=== PATIENT | female | born 1950 | race Caucasian/White ===

== ENCOUNTER 2024-09-25 18:11 | Inpatient (IN) ==
--- NOTE | 2024-09-25 18:43 | Emergency Department Note ---
Impression & Plan Suicidal thoughts Admission ED Provider Note HPI: History obtained from patient and son at bedside. The patient is a 73-year-old female who presents the emergency department with chief complaint of worsening anxiety and passive suicidal thoughts. Patient presents with a prescription note from her psychiatrist stating that she would like the patient evaluated for admission for worsening anxiety and suicidal thoughts because her anxiety has not been improving. Patient does admit to suicidal thoughts on my evaluation but states that she does not currently have a plan. Patient states that she feels very anxious, during my assessment she is pacing in the room. Patient is otherwise alert, she presents with her son at the bedside. ROS: - Per HPI Differential Diagnosis: Anxiety/depression, suicidal thoughts, psychosis, OCD with acute exacerbation, amongst other potential pathologies. *Outpatient medications and allergy history reviewed. PE: General: Alert, anxious appearing HEENT: Normocephalic, trachea midline Eyes: Extraocular eye movement is intact, no scleral erythema Pulmonary: Clear to auscultation bilaterally, no wheezing Cardio: Regular rate and rhythm GI: Abdomen is soft to palpation : No suprapubic tenderness MSK: No evidence of trauma or malformation of the extremities, no edema Skin: No evidence of rash Neuro: Alert, no focal deficits Psychiatric: Anxious appearing, pacing in the room, overall cooperative Interventions provided in ED: -IM Ativan Medical Decision Making: Lab work was obtained that shows no leukocytosis, hemoglobin is normal, platelet count is normal, CMP does not show any critical findings. Urinalysis does not show any evidence of any infection, Tylenol and salicylate levels are negative. Urine drug screen is negative. Alcohol level is negative. COVID screening is negative. Patient was given IM Ativan here in the ED as she was very anxious during my assessment and at times stated that she wanted to leave. She does present with a note from her psychiatrist suggesting inpatient care. She later admitted to a suicide attempt when speaking with case management and states that this occurred several days ago by taking some additional buspirone intentionally to harm herself. Patient was re-directable and agreeable for voluntary bed search admission for inpatient psychiatric care following medication. Her son at the bedside was in agreement. Patient was assessed for placement by the behavioral health unit and are determined appropriate for admission at 3 S. Consultants/Discussions held with other healthcare providers: -Case managementBoy Diagnosis: 1. Anxiety, acute 2. Suicidal thoughts, acute Disposition: Admission to [facility] Richy Carranza DO Emergency Medicine Past Med/Surg History Problem List (Updated 09/25/24 @ 23:26 by Richy Carranza DO) Suicidal thoughts (Acute) Social History Smoking Status: Never smoker Feels Safe at Home: Yes Gender Identity: Female Home Meds Home Medications Medication Instructions Recorded Confirmed buspirone 10 mg tablet 20 mg PO BID 09/25/24 09/25/24 levothyroxine 88 mcg tablet 88 mcg PO DAILY 09/25/24 09/25/24 lorazepam 0.5 mg tablet (Ativan) 0.5 mg PO TID PRN Anxiety 09/25/24 09/25/24 quetiapine 200 mg tablet (Seroquel) 200 mg PO HS 09/25/24 09/25/24 sertraline 50 mg tablet (Zoloft) 50 mg PO DAILY 09/25/24 09/25/24 Results & Data (ED) Vital Signs Vital Signs - 24 hr 09/25/24 18:15 09/25/24 19:14 09/25/24 20:15 Temperature 36.9 C Temperature Source Temporal Artery Scan Pulse Rate 93 H Pulse Rate [Finger] 71 Respiratory Rate 20 18 Respiratory Effort / Characteristics Non-Labored Spontaneous Non-Labored Non-Labored Spontaneous Respiratory Depth Normal Normal Normal Blood Pressure 151/90 H Blood Pressure [Right Arm] 121/67 Blood Pressure Mean 110 Blood Pressure Mean [Right Arm] 85 Pulse Oximetry 96 98 Oxygen Delivery Method Room Air Room Air Sepsis Recent Fever Within 48 Hours No Sepsis New/Unexplained Change in Mental Status No Sepsis Action Taken by Nursing No Action Required 09/25/24 22:00 Temperature Temperature Source Pulse Rate Pulse Rate [Finger] Respiratory Rate Respiratory Effort / Characteristics Non-Labored Respiratory Depth Normal Blood Pressure Blood Pressure [Right Arm] Blood Pressure Mean Blood Pressure Mean [Right Arm] Pulse Oximetry Oxygen Delivery Method Sepsis Recent Fever Within 48 Hours Sepsis New/Unexplained Change in Mental Status Sepsis Action Taken by Nursing Laboratory Data 09/25/24 19:05 09/25/24 19:05 Lab Results 09/25/24 09/25/24 09/25/24 Range/Units 18:47 19:05 19:50 WBC 9.28 (4.8-10.8) K/ul RBC 4.51 (4.20-5.40) M/uL Hgb 13.6 (12.0-16.0) g/dl Hct 41.1 (37.0-47.0) % MCV 91.1 (80.0-100.0) fL MCH 30.2 (25.0-34.0) pg MCHC 33.1 (32.0-36.0) g/dL RDW Std Deviation 42.5 (36.4-46.3) fL RDW Coeff of Justin 12.9 (11.5-14.5) % Plt Count 299 (130-400) K/uL MPV 9.3 L (9.4-12.4) fL Immature Gran % (Auto) 0.2 % Neut % (Auto) 79.4 % Lymph % (Auto) 13.8 % [place] % (Auto) 5.7 % Eos % (Auto) 0.4 % Baso % (Auto) 0.5 % Neut # (Auto) 7.36 H (1.40-6.50) K/uL Lymph # (Auto) 1.28 (1.20-3.40) K/uL [place] # (Auto) 0.53 (0.11-0.59) K/uL Eos # (Auto) 0.04 (0.00-0.50) K/uL Baso # (Auto) 0.05 (0.00-0.20) K/uL Immature Gran # (Auto) 0.02 (0.01-0.20) K/uL Sodium 138 (136-145) mmol/L Potassium 4.2 (3.5-5.1) mmol/L Chloride 101 (98-107) mmol/L Carbon Dioxide 27 (21-32) mmol/L Anion Gap 10 (3-11) BUN 23 (6-23) mg/dl Creatinine 1.37 H (0.6-1.2) mg/dl Est Cr Clr Drug Dosing 32.5 ml/min eGFR 41.28 BUN/Creatinine Ratio 16.8 (10-20) Glucose 110 H (70-99(Fasting)) mg/dl Calcium 9.2 (8.6-10.3) mg/dl Total Bilirubin 0.7 (0.2-1.0) mg/dl AST 15 (13-39) U/L ALT 18 (7-52) U/L Alkaline Phosphatase 68 (34-104) U/L Total Protein 7.4 (6.0-8.3) gm/dl Albumin 4.6 (3.4-5.0) gm/dl Globulin 2.8 (2.5-4.0) gm/dl Albumin/Globulin Ratio 1.6 (0.9-2) TSH 1.295 (0.300-4.500) uIu/ml Urine Color Yellow Urine Appearance Clear (Clear) Urine pH 6.0 (4.5-7.5) Ur Specific [place] 1.022 (1.000-1.030) Urine Protein Negative (Negative) Urine Glucose (UA) Negative (Negative) Urine Ketones Trace H (Negative) Urine Blood Negative (Negative) Urine Nitrite Negative (Negative) Urine Bilirubin Negative (Negative) Urine Urobilinogen Negative (Negative) Ur Leukocyte Esterase Negative (Negative) Salicylates < 3.0 L (3.0-30) mg/dl Urine Opiates Screen Neg (Neg) Ur Methadone, Qual Neg (Neg) Urine Fentanyl Screen Neg (Neg) Acetaminophen < 3 L (10-30) ug/ml Urine Barbiturates Neg (Neg) Ur Phencyclidine (PCP) Neg (Neg) U Amphetamin/Meth Scrn Neg (Neg) MDMA (Ecstasy) Screen Neg (Neg) U Benzodiazepines Scrn Neg (Neg) Ur Cocaine Metabolite Neg (Neg) U Marijuana (THC) Screen Neg (Neg) Ethyl Alcohol mg/dL < 10.0 (<10.0) mg/dl SARS-CoV-2, RNA, NAAT NEGATIVE (NEGATIVE) Administered Medications Discontinued Medications Lorazepam (Lorazepam 2 Mg/1 Ml Vial) 2 mg IM NOW STA Stop: 09/25/24 18:41 Last Admin: 09/25/24 18:49 Dose: 2 mg Documented By: NICKOLAS Discharge Plan Visit Data Chief Complaint: Mental Health Evaluation Stated Complaint: MENTAL ED Provider: Richy Carranza Discharge Problem: Suicidal thoughts Forms Stand Alone Forms: My [facility], Suicide Prevention Resources Prescriptions Prescriptions: No Action buspirone 10 mg tablet 20 mg PO BID quetiapine [Seroquel] 200 mg tablet 200 mg PO HS lorazepam [Ativan] 0.5 mg tablet 0.5 mg PO TID PRN (Reason: Anxiety) sertraline [Zoloft] 50 mg tablet 50 mg PO DAILY levothyroxine 88 mcg tablet 88 mcg PO DAILY Referrals Referrals: PCP,NO [Physician] -
[2024-09-25] MEDS: LORazepam 2 MG/1 ML VIAL IM STA (18:49)
[2024-09-25 19:02] LABS: Appearance Urine Clear (Clear); Bilirubin Urine Negative (Negative); Blood Urine Negative (Negative); Color Urine Yellow; Glucose Urine UA Negative (Negative); Ketones Urine Trace (Negative); Leukocyte Esterase Urine Negative (Negative); Nitrite Urine Negative (Negative); Protein Urine Negative (Negative); Specific Gravity Urine 1.022 (1.000-1.030); Urobilinogen Urine Negative (Negative)
[2024-09-25 19:30] LABS: Basophils # (auto) 0.05 K/uL (0.00-0.20); Basophils % (auto) 0.5 %; Eosinophils # (auto) 0.04 K/uL (0.00-0.50); Eosinophils % (auto) 0.4 %; Hematocrit (blood only) 41.1 % (37.0-47.0); Hemoglobin 13.6 g/dl (12.0-16.0); Immature Granulocytes # (auto) 0.02 K/uL (0.01-0.20); Immature Granulocytes % (auto) 0.2 %; Lymphocytes # (auto) 1.28 K/uL (1.20-3.40); Lymphocytes % (auto) 13.8 %; Mean Corpuscular Hemoglobin 30.2 pg (25.0-34.0); Mean Corpuscular Hgb Conc 33.1 g/dL (32.0-36.0); Mean Corpuscular Volume 91.1 fL (80.0-100.0); Mean Platelet Volume 9.3 fL (9.4-12.4); Monocytes # (auto) 0.53 K/uL (0.11-0.59); Monocytes % (auto) 5.7 %; Neutrophils # (auto) 7.36 K/uL (1.40-6.50); Neutrophils % (auto) 79.4 %; Platelet Count 299 K/uL (130-400); RDW Coefficient of Variation 12.9 % (11.5-14.5); RDW Standard Deviation 42.5 fL (36.4-46.3); Red Blood Count 4.51 M/uL (4.20-5.40); White Blood Count 9.28 K/ul (4.8-10.8)
[2024-09-25 19:40] LABS: Albumin Level 4.6 gm/dl (3.4-5.0); Bilirubin,Total 0.7 mg/dl (0.2-1.0); Calcium 9.2 mg/dl (8.6-10.3); Potassium 4.2 mmol/L (3.5-5.1)
[2024-09-25 19:46] LABS: Albumin Globulin Ratio 1.6 (0.9-2); BUN Creatinine Ratio 16.8 (10-20); Creatinine Clr Calc Pharmacy 32.5 ml/min; Globulin 2.8 gm/dl (2.5-4.0); Total Protein 7.4 gm/dl (6.0-8.3)
[2024-09-25 19:51] LABS: Thyroid Stimulating Hormone 1.295 uIu/ml (0.300-4.500)
[2024-09-25 19:52] LABS: Amphetamines+Metham, Urine Neg (Neg); Barbiturates, Urine Neg (Neg); Benzodiazepine, Urine Neg (Neg); Cocaine, Urine Neg (Neg); Fentanyl, Urine Neg (Neg); MDMA (Ecstacy), Urine Neg (Neg); Marijuana, Urine Neg (Neg); Methadone, Urine Neg (Neg); Opiate, Urine Neg (Neg); Phencyclidine, Urine Neg (Neg)
[2024-09-25 19:52] LABS: Acetaminophen < 3 ug/ml (10-30); Salicylate < 3.0 mg/dl (3.0-30)
[2024-09-26] MEDS ORDERED: LORazepam 0.5 MG TAB PO PRN (00:15)
[2024-09-26] MEDS ORDERED: BISMUTH SUBSALICYLATE 262 MG CHEW PO PRN (01:10)
[2024-09-26] MEDS ORDERED: ALUMINUM/MAGNESIUM SUSP 30 ML UDC PO PRN (01:10)
[2024-09-26] MEDS ORDERED: ACETAMINOPHEN 325 MG TAB PO PRN (01:10)
[2024-09-26] MEDS ORDERED: MAGNESIUM HYDROXIDE SUSP 30 ML UDC PO PRN (01:10)
[2024-09-26] MEDS ORDERED: SODIUM CHLORIDE 0.65% NA SOLN 45 ML (OCEAN) PRN (01:10)
[2024-09-26] MEDS: Patient's ALLERGY Info needs ENTERED STA (04:56)
[2024-09-26] MEDS ORDERED: busPIRone 5 MG TAB PO SCH (09:00)
[2024-09-26] MEDS ORDERED: LEVOTHYROXINE SODIUM 88 MCG TABLET PO SCH (09:00)
[2024-09-26] MEDS ORDERED: SERTRALINE HCL 50 MG TABLET PO SCH (09:00)
--- OUTSIDE RECORDS SUMMARY | 2024-09-26 09:01 | External Medical Summary | Summary of Care ---
Author Name Unknown Organization [facility] Address [address] [place] [address] Phone [phone] Care Team Providers Care [facility] Ceramist Name Role Phone Shyam Mckenna DO Primary Care Provider [phone] Reason for Referral * Social Care (Within 10 days (routine)) - Authorized Specialty Diagnoses / Procedures Referred By Tram sorto Referred To Contact Carport Erector Diagnoses Major depressive disorder, recurrent episode, moderate (HCC) Acquired hypothyroidism Prediabetes Dyslipidemia, goal LDL below 70 Shyam Mckenna DO [address] [place] [address] Referral ID Status Reason Start Date Expiration Date Visits Requested Visits Authorized [id number] Authorized Specialty Services Required 07/30/[phone] Question Answer Referral Priority Within 10 days (routine) Where should this appointment be scheduled? [facility] Nurse [facility]rector Referral Reason Depression (PHQ-9>10) Comments Is patient being transitioned from [facility] to Complex Case Management? No * Evaluate & Treat - Unlimited Visits (Within 10 days (routine)) - Authorized Specialty Diagnoses / Procedures Referred By Tram sorto Referred To Contact Dietitian / Nutrition Services Diagnoses Prediabetes Shyam Mckenna DO [address] [place] [address] Referral ID Status Reason Start Date Expiration Date Visits Requested Visits Authorized [id number] Authorized Specialty Services Required 07/30/[phone] Question Answer Referral Priority Within 10 days (routine) Where should this appointment be scheduled? [facility] What condition is the patient being seen for? All other conditions Other: Pre-Diabetes/ Hyperinsulemia Is this for 67 Forward? Yes Comments Medical Nutrition Therapy * Evaluate & Treat - Unlimited Visits (Within 10 days (routine)) - Authorized Specialty Diagnoses / Procedures Referred By Conttish t Referred To Contact Psychology Diagnoses Major depressive disorder, recurrent episode, moderate (HCC) Shyam Mckenna DO [address] [place] [address] Referral ID Status Reason Start Date Expiration Date Visits Requested Visits Authorized [id number] Authorized Specialty Services Required 07/30/[phone] Question Answer Referral Priority Within 10 days (routine) Where should this appointment be scheduled? [facility] Is this referral for medication management? No Reason for Referral: Depression/Anxiety/Bipolar Specific Condition? Depression Reason for Visit * Reason Comments NEW PATIENT Pt here for NPOV - n o questions or concerns Encounter Details Date Type Department Care Team (Late st Contact Info) Description 07/30/2024 3:00 PM EDT Office Visit Family [address], [place] [address] [place] [address] Shyam Mckenna DO [address] [place] [address] Major depressive disorder, recurrent episode, moderate (HCC)*; Acquired hypothyroidism; Prediabetes; Dyslipidemia, goal LDL below 70; Encounter for screening mammogram for malignant neoplasm of breast Allergies Active Allergy Reactions Criticality Noted Date Comments Bee Stings Other (Please comment) High 05/01/2002 anaphylaxis in 1990s; subsequent stings without reaction documented as of this encounter (statuses as of 08/02/2024) Medications Medication Sig Dispensed Refills Start Date End Date Status VITAMIN D 1000 UNITS PO CAPSIndications:Vit obrien D insufficiency 1 capsule daily 90 Cap 3 10/28/2013 Active Magnesium 500 MG Oral Tablet Take 1 Tablet by mouth in the morning. Active Vitamin B-12 100 MCG Oral Tablet (vitamin B-12) Take 1 Tablet by mouth in the morning. Unsure of dose. Active Probiotic Acidophilus BioBeads Oral Capsule Take 1 Capsule by mouth in the morning. Unsure of dose. Active LORazepam 0.5 MG Oral Tablet (Ativan) Take 1 Tablet by mouth daily as needed for Anxiety. 30 Tablet 2 07/01/2024 Active busPIRone HCl 15 MG Oral Tablet (Buspar) Take 1 Tablet by mouth in the morning and 1 Tablet at noon and 1 Tablet before bedtime. With meals. 90 Tablet 3 07/01/2024 Active QUEtiapine Fumarate 200 MG Oral Tablet (SEROquel) Take 1 Tablet by mouth at bedtime. 30 Tablet 3 07/01/2024 Active QUEtiapine Fumarate 25 MG Oral Tablet (SEROquel) Take 0.5 Tablets by mouth in the morning and 0.5 Tablets at noon and 0.5 Tablets in the evening. Active Zinc 50 MG Oral Tablet Take by mouth 50 mg in the morning. 07/30/2024 Discontinued (Medication List Clean Up) Biotin 10 MG Oral Capsule Take 1 Capsule by mouth in the morning. Unsure of dose. 07/30/2024 Discontinued (Medication List Clean Up) Levothyroxine Sodium 75 MCG Oral Tablet (Levoxyl)Indication s:Hypothyroidism, unspecified type Take 1 Tablet by mouth daily first thing in the morning. 90 Tablet 3 07/21/2023 08/01/2024 Discontinued (Medication/ Dose Changed) QUEtiapine Fumarate 25 MG Oral Tablet (SEROquel)Indicatio ns:Generalized anxiety disorder Take 1 Tablet by mouth in the morning and 1 Tablet at noon and 1 Tablet before bedtime. 90 Tablet 3 07/01/2024 07/30/2024 Discontinued (Medication List Clean Up) documented as of this encounter (statuses as of 08/02/2024) Active Problems Problem Noted Date Diagnosed Date Prediabetes 07/30/2024 Major depressive disorder, recurrent episode, mo derate 04/05/2024 Insomnia 04/05/2024 Anxiety disorder 03/26/2024 Polyp, cervix 12/10/2020 IFG (impaired fasting glucose) 12/25/2019 Overview: 11/2019 FBG 103 Dyslipidemia, goal LDL below 70 04/30/2010 Overview: 10 year ASCVD risk 11/18/2016 = 3.9% Hypothyroidism Toxic effect of venom Overview: ICD-10 update of inactive term documented as of this encounter (statuses as of 08/02/2024) Resolved Problems Problem Noted Date Diagnosed Date Resolved Date Abnormal mammogram 07/07/2011 6 Overview: LEFT BREAST: Focal asymmetry in the lower inner quadrant anteriorly. Additional projections and ultrasound (if necessary) are recommended at this time in the left spot cranial caudad, left spot medial lateral oblique and left lateral projections. Normalized 07/20/12 Dyslipidemia, goal to be determined 10/29/2009 04/30/2010 Overview: Per Lipid Taxonomy. Dyslipidemia, goal LDL below 160 04/25/2008 10/29/2009 Overview: Per Lipid Taxonomy. Carpal tunnel syndrome 04/25/200811/27 documented as of this encounter (statuses as of 08/02/2024) Immunizations Name Administration Dates Next Due COVID-19 mRNA, LNP-s, No Pre serve, 2-Dose Series (Moderna) 03/05/2021,02/05/2021 Seasonal Influenza, Quadriva lent, No Preserve, IM 09/05/2018 Seasonal Influenza, Trivalen t, (IIV3), with Preserv, (Fluzone) 08/20/2016,09/02/2015,09/03/2014,2012 TDAP, Age 7 and older, IM (Adacel) 04/27(Deferred: Patient Refused - pt will check with ins if covered) Zoster Vaccine Recombinant (Shingrix) 03/13/2023 documented as of this encounter Social History Tobacco Use Types Packs/Day Years Used Date Smoking Tobacco: Former Cigarettes 0.5 1 0 08/08/1982 - 08/08/1983 Passive Smoke Exposure: Never Smokeless Tobacco: Never Tobacco Cessation:Counseling Given: Yes Alcohol Use Standard Drinks/Week Comments No 0 (1 standard drink = 0.6 oz pur e alcohol) PHQ-2 Answer Date Recorded PHQ Adult Total Score 2 06/28/2024 Exercise Vital Sign Answer Date Recorde d Days of Exercise per Week 5 days 2018 Minutes of Exercise per Session 30 min 11/30/2018 Hunger Vital Sign Answer Date Recorded Within the past 12 months, y ou worried that your food would run out before you got the money to buy more. Never true 07/29/20 24 Within the past 12 months, t he food you bought just didn't last and you didn't have money to get more. Never true 07/29/2024 Childcare Answer Date Recorded Do you feel overwhelmed with taking care of a child, family member or friend? Yes 07/29/2024 Does your family need help f inding childcare? (Household - for ages 0-17 years) Not on file 07/29/2024 Clothing Answer Date Recorded Have you been unable to get clothing when it was really needed? No 07/29/2024 Is your family able to get c lothes or diapers when needed? (Household - for ages 0-17 years) Not on file 07/29/2024 Personal Safety Answer Date Recorded Do you feel unsafe or have concerns for your saf ety? No 07/29/2024 Do you have concerns for you r family's safety? (Household - for ages 0-17 years) Not on file 07/29/2024 Utilities Answer Date Recorded Do you have trouble paying y our heating, water, or electric bill? No 07/29/2024 Is your family able to pay t he heat, water, or electric bill? (Household - for ages 0-17 years) Not on file 07/29/2024 Does your family have access to good internet? (Household - for ages 0-17 years) Not on file 07/29/2024 Employment Status Answer Date Recorded Are you unemployed or without regular income? No 07/29/2024 Does the household have a re gular source of income? (Household - for ages 0-17 years) Not on file 07/29/2024 Social Connections Answer Date Recorded How often do you feel lonely or isolated from those around you? Sometimes 07/29/2024 Financial Resource Strain Answer Date R ecorded Do you have any trouble payi ng for your medications, or do you think you might in the future? No 07/29/2024 Does your family have troubl e paying for medicine? (Household - for ages 0-17 years) Not on file 07/29/2024 Transportation Needs Answer Date Record ed READ ONLY Do you have troubl e getting a ride to medical visits or work? Never True 07/29/2024 Does your family have a hard time getting a ride to doctors visits? (Household - for ages 0-17 years) Not on file 07/29/2024 Has lack of transportation k ept you from medical appointments, meetings, work, or from getting things needed for daily living? Check all that apply. No 07/29/2024 Do you (or your family) have trouble finding or paying for a ride (transportation)? (Household - for ages 0-17 years) Not on file 07/29/2024 Housing Stability Answer Date Recorded Do you currently live in a s helter or have no steady place to sleep at night? No 07/29/2024 READ ONLY Do you think you a re at risk of becoming homeless? No 07/29/2024 Does your family worry about paying for your home or becoming homeless? (Household - for ages 0-17 years) Not on file 0 07/29/2024 Are you homeless or worried that you might be in the future? No 07/29/2024 Are you (or your family) edgar eless or worried that you might be in the future? (Household - for ages 0-17 years) Not on file Food Insecurity Answer Date Recorded Do you need food for this week? No 07/29/2024 Are you able to get enough f ood for your family? (Household - for ages 0-17 years) Not on file 07/29/2024 Does your family need food t his week? (Household - for ages 0-17 years) Not on file 07/29/2024 Do you always have enough fo od for your family? (Household - for ages 0-17 years) Not on file 07/29/2024 Sex and Gender Information Value Date Recorded Sex Assigned at Not on file Gender Identity Not on file Sexual Orientation Not on file Job Start Date Occupation Industry Not on file Not on file Not on file documented as of this encounter Last Filed Vital Signs Vital Sign Reading Time Taken Comments Blood Pressure 114/72 07/30/2024 2:55 PM EDT Pulse 77 07/30/2024 2:55 PM EDT Temperature 36.9 C (98.5 F) 07/30/2024 2:55 PM ED T Respiratory Rate 16 07/30/2024 2:55 PM EDT Oxygen Saturation 95% 07/30/2024 2:55 PM EDT Inhaled Oxygen Concentration - - Weight 63.1 kg (139 lb 1.6 oz) 07/30/2024 2:55 P M EDT Height 161.3 cm (5' 3.5") 07/30/2024 2:55 PM EDT Body Mass Index 24.25 07/30/2024 2:55 PM EDT documented in this encounter Progress Notes * Shyam Mckenna DO - 07/30/2024 4:21 PM EDT Images from the original note were not included. History of Present Illness Lakisha Shepard is a 73 year old female that presents for NEW PATIENT (Pt here for NPOV - no questions or concerns ) Patient is a 73-year-old female here to establish care. Patient has a history of depression, hypothyroidism, prediabetes and dyslipidemia. Patient following with psychiatrist. Patient requesting additional medical workup for cause of mood disorder. Patient complains of multiple family stressors. 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 Patient states her father 3 years ago. 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 Patient complains of depressed mood with sleep disturbance. Patient denies suicidal ideation. Patient denies fatigue fever chills or sweats. Patient denies nasal congestion sore throat or earache. Patient denies cough or sputum. Patientdenies chest pain shortness breath palpitations or edema. Patient denies abdominal pain nausea vomiting diarrhea constipation. Patient denies urinary frequency dysuria urgency or hematuria. Patient denies neck or back pain, joint pain or swelling. Patient denies headache dizziness weakness or numbness. Patient denies skin rash or lesions. Review systems otherwise negative Physical Exam Vitals: 07/30/24 1455 Temp: 36.9 C (98.5 F) Pulse: 77 Resp: 16 SpO2: 95% BP: 114/72 BMI: 24.25 BP Readings from Last 3 Encounters: 07/30/24 114/72 03/27/24 126/82 03/26/24 161/108 Wt Readings from Last 3 Encounters: 07/30/24 63.1 kg (139 lb 1.6 oz) 03/27/24 63.1 kg (139 lb 3.2 oz) 03/14/24 64.6 kg (142 lb 8 oz) BMI Readings from Last 3 Encounters: 07/30/24 24.25 kg/m 03/27/24 24.08 kg/m 03/14/24 24.65 kg/m BP 114/72 (BP Site: Right Arm, BP Position: Sitting) | Pulse 77 | Temp 36.9 C (98.5 F) | Resp 16 | Ht 1.613 m (5' 3.5") | Wt 63.1 kg (139 lb 1.6 oz) | LMP 04/03/2007 | SpO2 95% | BMI 24.25 kg/m| BSA 1.68 m General: alert, healthy, and no distress Head: Normocephalic, No masses, lesions, tenderness or abnormalities Eye Exam: PERRLA, extraocular movements intact, conjunctiva are pink and non- injected, sclera clear Ears: External ears normal, Canals clear, TM's Normal Nose: no mucosal erythema, no mucosal edema, no purulent discharge Oropharynx: no exudate, no erythema, lips, buccal mucosa, and tongue normal, and mucous membranes are moist Neck: supple, no adenopathy, no bruits, thyroid normal size, non-tender, without nodularity Lymph: no palpable lymphadenopathy Heart: regular rate & rhythm, no murmur, and no gallops Lungs: chest symmetric with normal AP diameter, no chest deformities noted, no chest wall tenderness, lungs clear to auscultation Pulses: carotid=2/4 w/o bruits Abdomen: abdomen soft, non-tender, normal bowel sounds, and no masses or organomegaly Back: back symmetric, no curvature, no costovertebral angle tenderness, range of motion is normal Extremities: less than 2 second capillary refill, no joint deformities, effusion, or inflammation Neuro Exam: alert & oriented x 3 with fluent speech, no focal motor/sensory deficits, gait normal, reflexes normal and symmetric, depressed mood, no suicidal ideation Skin: skin color, texture, turgor are normal, no rashes or significant lesions I have reviewed the following results: CMP, Lipid Panel, Hemoglobin A1C, TSH, and CBC Assessment and Plan Major depressive disorder, recurrent episode, moderate (HCC) Continue present medication Seroquel 25 mg take 1/2 tab three times daily Seroquel 200 mg 1 tab at HS BuSpar 15 mg 1 tab three times daily Follow with psychiatrist Discuss with psychiatrist possible discontinuation of lorazepam due to cognitive impairment - ADULT/PEDS PSYCHOLOGY REFERRAL OP Acquired hypothyroidism Continue present medication Levothyroxine 75 mcg pending repeat lab studies - THYROID ANTIBODY AND TPO ANTIBODY; Future - T3, TOTAL; Future - TSH WITH FREE T4 IF INDICATED; Future Prediabetes Reduced caloric intake diabetic diet and exercise - NUTRITION-CLINICAL DIETITIAN REFERRAL OP Dyslipidemia, goal LDL below 70 Low-fat low-cholesterol high-fiber diet and exercise Consider statin therapy, patient deferred Encounter for screening mammogram for malignant neoplasm of breast - MAMMOGRAM SCREENING EDWARD BILATERAL; Future Wrap-Up Time: I spent a total of 40-54 minutes (exact time 40 mins) on the date of service in preparation, delivery, and documentation of the care provided to Lakisha Shepard excluding any time spent in the performance of separately billed services. documented in this encounter Nursing Notes * Carola Smith CCMA - 07/30/2024 2:52 PM EDT Chief Complaint Patient presents with NEW PATIENT Pt here for NPOV - no questions or concerns Patient has been verbally educated on the need or importance of Tdap Vaccine, Pneumococcal Vaccine,Shingles Vaccine, Flu Vaccine, and covid and has declined topic(s). Pt would like to schedule mammogram. Pending order for doctor to sign off. documented in this encounter Plan of Treatment Upcoming Encounters Date Type Department Care Team (Late st Contact Info) Description 08/05/2024 12:45 PM EDT Appointment Radiology, [place] [phone] 08/06/2024 10:30 AM EDT Telemedicine Psychiatry Scott [facility] [address] [place] [address] Leon Mendes MD [address] [place] [address] 10/07/2024 10:00 AM EST Nutrition Services Nutrition Services [address] [facility] [address] [place] [address] Holli Cobian RDN 30 [facility] [address] [place] [address] 11/04/2024 11:20 AM EST Office Visit Family Practice [address] [facility] [address] [place] [address] Shyam Mckenna DO [address] [place] [address] Scheduled Orders Name Type Priority Associated Diagnoses Orde r Schedule MAMMOGRAM SCREENING EDWARD BILATERAL Medical Imaging Routine Encounter for screening mammogram for malignant neoplasm of breast Expected: 01/27/2025, Expires: 08/29/2025 Scheduled Procedures Name Priority Associated Diagnoses Date/Ti me COLONOSCOPY FLEXIBLE PROXIMAL DIAGNOSTIC Recall Colon cancer screening Scheduled Referrals Name Type Priority Associated Diagnoses Orde r Schedule ADULT/PEDS PSYCHOLOGY REFERRAL OP Referral Within 10 days (routine) Major depressive disorder, recurrent episode, moderate (HCC) Ordered: 07/30/2024 NUTRITION-CLINICAL DIETITIAN REFERRAL OP Referral Within 10 days (routine) Prediabetes Ordered: 07/30/2024 POPULATION HEALTH REFERRAL OP Referral Within 10 days (routine) Major depressive disorder, recurrent episode, moderate (HCC) Acquired hypothyroidism Prediabetes Dyslipidemia, goal LDL below 70 Ordered: 07/31/2024 Health Maintenance Due Date Last Done Comments DTap/Tdap Vaccines (1 - Tdap) 1971 Cologuard 1997 Sigmoidoscopy 1997 Fecal Occult Blood Test 05/25/2013 05/25/2012, 04/29 Pneumococcal Vaccine: 65+ Years (1 of 1 - PCV) 2017 Adult Wellness Visit 2018 Zoster Vaccines (2 of 2) 05/08/2023 03/13/2023 Mammogram 09/20/2023 09/20/2022, 08/21, 08/28/2020, Additional history exists COVID-19 Vaccine ( - season) 2024 03/05/2021, 02/05/2021 Influenza Vaccine (FLU shot) (#1) 2024 09/05/2018, 08/20/2016, 09/02/2015, Additional history exists HbA1c 03/14/2025 03/14/2024, 02/19, 08/06/2012 Depression Monitoring 06/28/2025 06/28/2024 TSH 07/31/2025 07/31/2024, 05/0 05/2024, 03/14/2024, Additional history exists Colonoscopy 12/07/2025 12/07/2015, 12/07/2015 Colorectal Cancer Screening 12/07/2025 Lipid Panel 03/14/2029 03/14/2024, 2 02/2023, 03/11/2022, Additional history exists DXA Scan 04/07/2030 04/07/2023 HPV (Gardasil) Vaccine Aged Out No lo nger eligible based on patient's age to complete this topic Hepatitis B Vaccine Aged Out No longe r eligible based on patient's age to complete this topic MENINGOCOCCAL (MENACTRA/MENVEO) Aged Out No longer eligible based on patient's age to complete this topic documented as of this encounter Medical Devices Not on filedocumented as of this encounter Results * (ABNORMAL) TSH WITH FREE T4 IF INDICATED (07/31/2024 2:04 PM EDT) TSH 6.10(H) 0.27 - 4.20 uIU/mL 08/01/2024 1:10 AM EDT LABORATORY [facility] Blood Venous blood specimen / Unknown Venipuncture / Unknown 07/31/2024 2:04 PM EDT 07/31/2024 2:04 PM EDT Shyam Mckenna DO LAB BLOOD ORDERABLES LAB[facility]ATORY [facility] [address] [place] [address] * (ABNORMAL) T3, TOTAL (07/31/2024 2:04 PM EDT) T3, Total 65(L) 80 - 200 ng/dL 08/01/2024 1:45 AM EDT LAB[facility]ATORY [facility] Blood Venous blood specimen / Unknown Venipuncture / Unknown 07/31/2024 2:04 PM EDT 07/31/2024 2:04 PM EDT Shyam Rosarioeo LAB BLOOD ORDERABLES [facility] [address] [place] [address] * THYROID ANTIBODY AND TPO ANTIBODY (07/31/2024 2:04 PM EDT) Thyroid Peroxidase Antibody 8.9 <34.0 IU/mL 08/01/2024 1:45 AM EDT LAB[facility]AT[facility] Thyroglobulin Antibody 18.2 <115.0 IU/mL 08/01/2024 1:45 AM EDT LABORATORY C Blood Venous blood specimen / Unknown Venipuncture / Unknown 07/31/2024 2:04 PM EDT 07/31/2024 2:04 PM EDT [facility] [address] [place] [address] documented in this encounter Visit Diagnoses Diagnosis Major depressive disorder, recurrent episode, moderate (HCC)- Primary Major depressive disorder, recurrent episode, moderate Acquired hypothyroidism Unspecified hypothyroidism Prediabetes Other abnormal glucose Dyslipidemia, goal LDL below 70 Other and unspecified hyperlipidemia Encounter for screening mammogram for malignant neoplasm of breast Other screening mammogram documented in this encounter Care Teams [employer]amist Relationship Specialty Start Date End Date Shyam Mckenna DO [address] [place] [id number] PCP - General Family Medicine 07/30/24 documented as of this encounter
--- OUTSIDE RECORDS SUMMARY | 2024-09-26 09:01 | External Medical Summary | Summary of Care ---
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 Active Levothyroxine Sodium 88 MCG Oral Tablet (Levoxyl)Indications:A cquired hypothyroidism Take 1 Tablet by mouth in the morning. (at least 30 min prior to breakfast or other meds). 90 Tablet 3 08/01/2024 Active documented as of this encounter (statuses as of 08/06/2024) Active Problems Problem Noted Date Diagnosed Date [...] as of this encounter (statuses as of 08/06/2024) Resolved Problems Problem Noted Date Diagnosed Date [...] as of this encounter (statuses as of 08/06/2024) Immunizations Name Administration Dates Next Due COVID-19 [...] Passive Smoke Exposure: Never Smokeless Tobacco: Never Alcohol Use Standard Drinks/Week Comments No 0 [...] on file documented as of this encounter Plan of Treatment Upcoming Encounters Date Type Department Care Team (Late st Contact Info) Description 10/07/2024 10:00 AM EST Nutrition Services Nutrition Services [address] [place] [address] [place] [address] Holli Cobian RDN 30 [facility] 11 [place] [address] 11/04/2024 11:20 AM EST Office Visit Family Practice [address] [place] [address] [place] [place] [address] Shyam Mckenna DO [address] [place] [address] Scheduled Orders Name Type Priority Associated Diagnoses Orde r Schedule MYCODE SUBSEQUENT ADULT Lab Routine [employer] Other*[id number] Every 6 Months for 2 Occurrences starting 08/06/2024 until 08/26/2025 Scheduled Procedures Name Priority Associated Diagnoses Date/Ti me COLONOSCOPY FLEXIBLE PROXIMAL DIAGNOSTIC Recall Colon cancer screening Health Maintenance Due Date Last Done Comments DTap/Tdap Vaccines (1 - Tdap) 1971 Cologuard 1997 Sigmoidoscopy 1997 Fecal Occult Blood Test 05/25/2013 05/25/2012, 04/29 Pneumococcal Vaccine: 65+ Years (1 of 1 - PCV) 2017 Adult Wellness Visit 2018 Zoster Vaccines (2 of 2) 05/08/2023 03/13/2023 COVID-19 Vaccine (3 - season) 2024 03/05/2021, 02/05/2021 Influenza Vaccine (FLU shot) (#1) 2024 09/05/2018, 08/20/2016, 09/02/2015, Additional history exists HbA1c 03/14/2025 03/14/2024, 2 02/2023, 08/06/2012 Depression Monitoring 06/28/2025 06/28/2024 TSH 07/31/2025 07/31/2024, 05/0 05/2024, 03/14/2024, Additional history exists Mammogram 08/05/2025 08/05/2024, 11/0 11/2021, 09/09/2021, Additional history exists Colonoscopy 12/07/2025 12/07/2015, 12/07/2015 Colorectal Cancer Screening 12/07/2025 Lipid Panel 03/14/2029 03/14/2024, 02/19, 03/11/2022, Additional history exists DXA Scan 04/07/2030 [...] Not on filedocumented as of this encounter Visit Diagnoses Diagnosis [employer] Other*[id number] documented in this encounter Care Teams Telephone Directory Distributor Driver Relationship Specialty Start Date End Date Shyam Mckenna DO [address] [place] [place] [phone] PCP - General Family Medicine 07/30/24 documented as of this encounter
--- OUTSIDE RECORDS SUMMARY | 2024-09-26 09:01 | External Medical Summary | Summary of Care ---
Author Name Unknown Organization [facility] Address [address] [place] [address] Phone [phone] Care Team Providers Care Manager Storage Name Role Phone Von Mckennainic Primary Care Provider [phone] Encounter Details Date Type Department Care Team (Latest Contact Info) Description 08/05/2024 12:37 PM EDT - 08/05/2024 11:59 PM EDT Hospital Encounter Radiology, [address] [address] Arrived Discharge Disposition: Home - Self Care Allergies Active Allergy Reactions Criticality Noted Date Comments Bee Stings Other (Please comment) High 05/01/2002 anaphylaxis in 1990s; subsequent stings without reaction documented as of this encounter (statuses as of 08/06/2024) Medications Medication Sig Dispensed Refills Start Date End Date Status VITAMIN D 1000 UNITS PO CAPSIndications:Sveta min D insufficiency 1 capsule daily 90 Cap [...] for Anxiety. 30 Tablet 2 07/01/2024 Active QUEtiapine Fumarate 200 MG Oral Tablet (SEROquel) Take 1 Tablet by mouth at bedtime. 30 Tablet 3 07/01/2024 Active Levothyroxine Sodium 88 MCG Oral Tablet (Levoxyl)Indications :Acquired hypothyroidism Take 1 Tablet by mouth in the morning. (at least 30 min prior to breakfast or other meds). 90 Tablet 3 08/01/2024 Active busPIRone HCl 15 MG Oral Tablet (Buspar) Take 1 Tablet by mouth in the morning and 1 Tablet at noon and 1 Tablet before bedtime. With meals. 90 Tablet 3 07/01/2024 4 Discontinue d(Refill) QUEtiapine Fumarate 25 MG Oral Tablet (SEROquel) Take 0.5 Tablets by mouth in the morning and 0.5 Tablets at noon and 0.5 Tablets in the evening. 4 Discontinue d(Refill) documented as of this encounter (statuses as [...] Care Team (Late st Contact Info) Description 09/06/2024 9:30 AM EDT Telemedicine Psychiatry Ede Kamara [address] [place] [phone] Leon Mendes MD [address] [place] [phone] 10/07/2024 10:00 AM EST Nutrition Services Nutrition Services [address] [place] [address] [address] [place] [facility] [place], [place] [address] Holli Cobian RDN 30 [facility] 11 [place] [address] 11/04/2024 11:20 AM EST Office Visit Family Practice 65 [facility] [address] [place] [address] Shyam Mckenna DO [address] [place] [address] Scheduled Procedures Name Priority Associated Diagnoses Date/Ti [...] Not on filedocumented as of this encounter Procedures Procedure Name Priority Date/Time Associated Diagnosis Comments MAMMOGRAM SCREENING EDWARD BILATERAL Routine 08/05/2024 12:58 PM EDT Encounter for screening mammogram for malignant neoplasm of breast documented in this encounter Results * MAMMOGRAM SCREENING EDWARD BILATERAL (08/05/2024 12:58 PM EDT) Anatomical Region Laterality Modality Breast Bilateral Mammography Narrative 08/05/2024 5:37 PM EDT Result MAMMOGRAM SCREENING EDWARD BILATERAL History Encounter for screening mammogram for malignant neoplasm of breast Family medical history includes breast cancer in 2 relatives (aunt (maternal), cousin (maternal)). Films Compared 09/20/2022 MAMMOGRAM SCREENING EDWARD BILATERAL, 09/09/2021 MAMMOGRAM SCREENING EDWARD BILATERAL, 08/28/2020 MAMMOGRAM SCREENING EDWARD BILATERAL, and 12/05/2018 MAMMOGRAM SCREENING BILATERAL Findings The breasts are heterogeneously dense, which may obscure small masses. There is no evidence of suspicious masses, calcifications, or other abnormal findings. Impression Bilateral No mammographic evidence of malignancy. BI-RADS Category: 1 - Negative. Recommendation Screening mammogram in 1 year is recommended for both breasts. Digital breast tomosynthesis was performed. This digital mammogram has been analyzed with the computer aided detection system. This notice contains the results of your recent mammogram, including information about breast density. If your mammogram shows that your breast tissue is dense, you should know that dense breast tissue is a common finding and is not abnormal. Statistics show many women could have dense or highly dense breasts. Dense breast tissue can make it harder to find cancer on a mammogram and may be associated with an increased risk of cancer. This information about the result of your mammogram is given to you to raise your awareness and to inform your conversations with your physician. Together, you can decide which screening options are right for you, based on your mammogram results, individual risk factors or physical examination. A report of your results was sent to your physician. Your mammographic breast density on today's study is described above. There are four categories of breast density on mammography. Fatty breasts and those with scattered fibroglandular tissue are not considered dense. Heterogeneously dense or extremely dense tissue is considered "dense". Please understand that assessment of breast density may vary from year to year. This examination was performed at [facility], [address] [facility], [place] [address]. Shyam Mckenna DO RAD MAMMOGRAPHY documented in this encounter Visit Diagnoses Diagnosis Encounter for screening mammogram for malignant neoplasm of breast Other screening mammogram documented in this encounter Care Teams Manager Storage Relationship Specialty Start Date End Date Shyam Mckenna DO [address] [place] [address] PCP - General Family Medicine 07/30/24 documented as of this encounter
--- OUTSIDE RECORDS SUMMARY | 2024-09-26 09:01 | External Medical Summary | Summary of Care ---
Author Name Unknown Organization [facility] Address [address] [place] [address] Phone [phone] Care Team Providers Care Adult Basic Education Teacher Name Role Phone Shyam Mckenna DO Primary Care Provider [phone] Reason for Visit * Reason Onset Date Comments Test Results 08/01/2024 Encounter Details Date Type Department Care Team (Late st Contact Info) Description 08/01/2024 Telephone Family Practice 65 [facility] [address] [place] [address] Shyam Mckenna DO [address] [place] [address] Test Results Allergies Active Allergy Reactions Criticality Noted Date Comments Bee Stings Other (Please comment) High 05/01/2002 anaphylaxis in 1990s; subsequent stings without reaction documented as of this encounter (statuses as of 08/01/2024) Medications Medication Sig Dispensed Refills Start Date [...] Tablets in the evening. Active Levothyroxine Sodium 75 MCG Oral Tablet (Levoxyl)Indication s:Hypothyroidism, unspecified type Take 1 Tablet by mouth daily first thing in the morning. 90 Tablet 3 07/21/2023 08/01/2024 Discontinued (Medication/ Dose Changed) documented as of this encounter (statuses as of 08/01/2024) Active Problems Problem Noted Date Diagnosed Date [...] as of this encounter (statuses as of 08/01/2024) Resolved Problems Problem Noted Date Diagnosed Date [...] as of this encounter (statuses as of 08/01/2024) Immunizations Name Administration Dates Next Due COVID-19 [...] on file documented as of this encounter Miscellaneous Notes * Telephone Encounter - Shyam Mckenna DO - 08/01/2024 12:56 PM EDT Lab studies shows under active thyroid. Advise increase levothyroxine 88 mcg once daily and repeat lab studies in 6 weeks for TSH level. documented in this encounter Plan of Treatment Upcoming Encounters Date Type Department Care Team (Late st Contact Info) Description 08/05/2024 12:45 PM EDT Appointment Radiology, [place] [address] [place] [phone] 08/06/2024 10:30 AM EDT Telemedicine Psychiatry Ede [place] [address] [place] [phone] Leon Mendes MD 9 [place] [phone] 10/07/2024 10:00 AM EST Nutrition Services Nutrition Services 65 [facility] [address] [place] [address] Holli Cobian, LIAM 30 [facility] 11 [place] [address] 11/04/2024 11:20 AM EST Office Visit Family Practice 65 [facility] [address] [place] [address] Shyam Mckenna DO [address] [place] [address] Scheduled Procedures Name Priority Associated Diagnoses Date/Ti [...] 08/21, 08/28/2020, Additional history exists COVID-19 Vaccine (3 - season) 2024 03/05/2021, [...] Not on filedocumented as of this encounter Care Teams Adult Basic Education Teacher Relationship Specialty Start Date End Date Shyam Mckenna DO [address] [place] [address] PCP - General Family Medicine 07/30/24 documented as of this encounter
--- OUTSIDE RECORDS SUMMARY | 2024-09-26 09:01 | External Medical Summary | Summary of Care ---
Author Name Unknown Organization [facility] Address [address] [place] [address] Phone [phone] Care Team Providers Care Pr Manager Name Role Phone Shyam Mckenna DO Primary Care Provider [phone] Reason for Visit * Reason Onset Date Comments Test Results 08/01/2024 Encounter Details Date Type Department Care Team (Late st Contact Info) Description 08/01/2024 Telephone Family Practice 65 [facility] [address] [place] [address] Shyam Mckenna DO [address] [place] [address] Test Results Allergies Active [...] as of this encounter Miscellaneous Notes * Addendum Note - Razia Sotelo LPN - 08/01/2024 1:14 PM EDTAddended by: RAZIA SOTELO on: 08/01/2024 01:14 PM Modules accepted: Orders * Telephone Encounter - Razia Sotelo LPN - 08/01/2024 1:09 PM EDT Pt aware and verbalized understanding. Pt would like us to send the RX to [facility] mail order. Pended RX to preferred pharmacy Pended labs Please assist with scheduling once orders are signed. * Telephone Encounter - Shyam Mckenna DO [...] EDT Appointment Radiology, [place] [address] [place] [address] 08/06/2024 10:30 AM EDT Telemedicine Psychiatry Ede [place] [address] [place] [phone] Leon Mendes MD 9 [place] [phone] 10/07/2024 10:00 AM EST Nutrition Services Nutrition Services [address] [place] [address] [address] [place] [phone] Holli Cobian, LIAM 30 [facility] 11 [place] [address] 11/04/2024 11:20 AM EST Office Visit Family Practice [address] [place] [address] [address] [place] [address] Shyam Mckenna DO [address] [phone] Scheduled Procedures Name Priority Associated Diagnoses Date/Ti [...] 08/28/2020, Additional history exists COVID-19 Vaccine ( season) 2024 03/05/2021, 02/05/2021 Influenza Vaccine (FLU [...] filedocumented as of this encounter Care Teams Pr Manager Relationship Specialty Start Date End Date Shyam Mckenna DO [address] [place] [phone] PCP - General Family Medicine 07/30/24 documented as of this encounter
--- OUTSIDE RECORDS SUMMARY | 2024-09-26 09:01 | External Medical Summary | Summary of Care ---
Author Name Unknown Organization [facility] Address [address] [place] [address] Phone [phone] Care Team Providers Care White Metal Corrosion Proofer Name Role Phone Shyam Mckenna DO Primary Care Provider [phone] Reason for Visit * Reason Onset Date Comments Test Results 08/01/2024 Encounter Details Date Type Department Care Team (Late st Contact Info) Description 08/01/2024 Telephone Family Practice 65 [facility] [address] [place] [address] Shyam Mckenna DO [address] [place] [address] Test Results Allergies Active [...] other meds). 90 Tablet 3 08/01/2024 Active Levothyroxine Sodium 75 MCG Oral Tablet (Levoxyl)Indications :Hypothyroidism, unspecified type Take 1 Tablet by mouth daily first thing in the morning. 90 Tablet 3 07/21/2023 4 Discontinue d(Medicatio n/Dose Changed) documented as of this encounter (statuses [...] 07/29/2024 Does the household have a re lar source of income? (Household - for ages [...] encounter Miscellaneous Notes * Addendum Note - Shyam Mckenna DO - 08/01/2024 2:19 PM EDTAddended by: SHYAM MCKENNA on: 08/01/2024 02:19 PM Modules accepted: Orders * Addendum Note - Razia Sotelo LPN - 08/01/2024 1:14 PM EDTAddended by: RAZIA SOTELO on: 08/01/2024 01:14 PM Modules accepted: Orders * Telephone Encounter - Razia Sotelo LPN - 08/01/2024 1:09 PM EDT Pt aware and verbalized understanding. Pt would like us to send the RX to [facility] mail order. Pended RX to preferred pharmacy [...] EDT Appointment Radiology, [place] [address] [place] [address] 08/06/2024 10:30 AM EDT Telemedicine Psychiatry Ede [place] [address] [place] [phone] Leon Mendes MD 9 [place] [phone] 10/07/2024 10:00 AM EST Nutrition Services Nutrition Services [address] [place] [address] [place] [phone] Holli Cobian RDN 30 [facility] 11 [place] [address] 11/04/2024 11:20 AM EST Office Visit Family Practice [address] [place] [address] [address] [place] [address] Shyam Mckenna DO [address] [place] [address] Scheduled Orders Name Type Priority Associated Diagnoses Orde r Schedule TSH Lab Routine Acquired hypothyroidism Expected: 09/13/2024 (Approximate), Expires: 09/19/2024 Scheduled Procedures Name Priority Associated Diagnoses Date/Ti [...] as of this encounter Visit Diagnoses Diagnosis Acquired hypothyroidism- Primary Unspecified hypothyroidism documented in this encounter Care Teams White Metal Corrosion Proofer Relationship Specialty Start Date End Date Shyam Mckenna DO [address] [place] [phone] PCP - General Family Medicine 07/30/24 documented as of this encounter
--- OUTSIDE RECORDS SUMMARY | 2024-09-26 09:01 | External Medical Summary | Summary of Care ---
Author Name Unknown Organization [facility] Address [address] [place] [address] Phone [phone] Care Team Providers Care Drawing Box Tender Name Role Phone Von Mckennainic Primary Care Provider + [phone] Encounter Details Date Type Department Care Team (Late st Contact Info) Description 08/06/2024 10:30 AM EDT Telemedicine Psychiatry Ede Kamara [address] [place] [address] Leon Mendes MD [address] [place] [address] Generalized anxiety disorder*; Major depressive disorder, recurrent episode, moderate (HCC); Insomnia, unspecified type Allergies Active Allergy Reactions Criticality Noted Date [...] other meds). 90 Tablet 3 08/01/2024 Active QUEtiapine Fumarate 25 MG Oral Tablet (SEROquel) Take 0.5 Tablets by mouth 3 times a day as needed for Anxiety. 90 Tablet 1 08/06/2024 Active busPIRone HCl 10 MG Oral Tablet (Buspar) Take 2 Tablets by mouth in the morning and 2 Tablets at noon and 2 Tablets before bedtime. With meals. 180 Tablet 3 08/06/2024 Active busPIRone HCl 15 MG Oral Tablet [...] the money to buy more. Never true 09/09/20 24 Within the past 12 months, t [...] on file documented as of this encounter Progress Notes * Leon Mendes MD - 08/06/2024 10:37 AM EDT OUTPATIENT PSYCHIATRY RETURN VISIT DIVISION OF PSYCHIATRY [facility] [address] Name: Lakisha Shepard : 1950 Date and Time Patient was Seen: 08/06/2024 at 10:37 AM After connecting through televArkivumo, patient was verified with two unique identifiers. Patient (or authorized legal high school admissions representative) was then informed that this was a Telemedicine visit and that the exam was being conducted confidentially over secure lines. My office door was closed. No one else was in the room with me. Patient acknowledged consent and understanding of privacy and security of the Telemedicine visit, and gave permission to have a telemedicine presenter stay in the room in order toassist with the history and to conduct the exam as needed. I informed the patient that I have reviewed their record in [employer] and presented the opportunity for them to ask any questions regarding the visit today. The patient agreed to participate. Patient location: HOME. I was not in a hospital or clinic location. After connecting through televideo, patient was verified with two unique identifiers. Patient (or authorized legal high school admissions representative) was then informed that this was a Telemedicine visit and being conducted confidentially over secure lines. Methods to assure confidentiality were taken. Patient acknowledged consent and understanding of privacy and security of the Telemedicine visit. The patient agreed to participate. CC: Follow up visit Depression, anxiety and insomnia INTERVAL HISTORY: Her son, Denny was present during the appointment. Pt said that she was doing good for 3 weeks after her last visit. She said that she has not been doing well for the last week with no specific triggers. She said that she has been more anxious, pacing and hits herself at times and feels overwhelmed on and off during the day. She said that these episodes occur and escalate when she thinks about her finances and about her mom's health. Her anxiety is mostly triggered by her thoughts. She said she has no energy and motivation to do things. She is not able to communicate and engage with people as in the past. Denny said that she was doing well for 3 weeks after her last visit. She was not taking Ativan as often. She has been more anxious in the last one week and has been taking Ativan daily. She feels worse when she wakes up in the mornings. Explained to them that Ativan can cause rebound agitation and anxiety and worse her confusion and fall risk/balance issues. Advised her to take the Seroquel as soon as she wakes up and then take Buspar after breakfast. Psychiatric ROS Sleep: Better, 4-7 hours, feels tired, slept well on weekends when she was with her daughter Appetite: Reduced, no weight loss in last one month Suicidal ideation: Denied, passive wish, no intent or plan Homicidal ideation: Denied Psychosis: None reported Monica: None reported PTSD: None reported Panic attacks: None reported Memory issues: None reported Med Compliance: Good Side effects: None reported D+A Use Alcohol: None Nicotine: None Other substances: None Medical Issues Acute medical issues at present: None Last PCP Visit: 1 week ago, no issues, started at [facility] [address] and saw a doctor there MEDICAL REVIEW OF SYSTEMS: No fever/dizziness/blurred vision/cough/chest pain/shortness of breath/abdominal pain/nausea/vomiting/bladder or bowel problems/headache/weakness/rigidity or pain reported. Any positive symptoms reported by patient are listed in the interval summary. ALLERGIES Review of patient's allergies indicates: Allergen Reactions Bee Stings Other (Please comment) anaphylaxis in ; subsequent stings without reaction CURRENT MEDICATIONS: Current Outpatient Medications Medication Sig Dispense Refill VITAMIN D 1000 UNITS PO CAPS 1 capsule daily 90 Cap 3 Magnesium 500 MG Oral Tablet Take 1 Tablet by mouth in the morning. Vitamin B-12 100 MCG Oral Tablet (vitamin B-12) Take 1 Tablet by mouth in the morning. Unsure of dose. Probiotic Acidophilus BioBeads Oral Capsule Take 1 Capsule by mouth in the morning. Unsure of dose. LORazepam 0.5 MG Oral Tablet (Ativan) Take 1 Tablet by mouth daily as needed for Anxiety. 30 Tablet2 busPIRone HCl 15 MG Oral Tablet (Buspar) Take 1 Tablet by mouth in the morning and 1 Tablet at noonand 1 Tablet before bedtime. With meals. 90 Tablet 3 QUEtiapine Fumarate 200 MG Oral Tablet (SEROquel) Take 1 Tablet by mouth at bedtime. 30 Tablet 3 QUEtiapine Fumarate 25 MG Oral Tablet (SEROquel) Take 0.5 Tablets by mouth in the morning and 0.5 Tablets at noon and 0.5 Tablets in the evening. Levothyroxine Sodium 88 MCG Oral Tablet (Levoxyl) Take 1 Tablet by mouth in the morning. (at least 30 min prior to breakfast or other meds). 90 Tablet 3 No current facility-administered medications for this visit. RECENT LABS/IMAGING: Recent Results (from the past 672 hour(s)) THYROID ANTIBODY AND TPO ANTIBODY Collection Time: 07/31/24 2:04 PM Result Value Ref Range Thyroid Peroxidase Antibody 8.9 <34.0 IU/mL Thyroglobulin Antibody 18.2 <115.0 IU/mL T3, TOTAL Collection Time: 07/31/24 2:04 PM Result Value Ref Range T3, Total 65 (L) 80 - 200 ng/dL TSH WITH FREE T4 IF INDICATED Collection Time: 07/31/24 2:04 PM Result Value Ref Range TSH 6.10 (H) 0.27 - 4.20 uIU/mL T4, FREE Collection Time: 07/31/24 2:04 PM Result Value Ref Range T4, Free 1.1 0.9 - 1.7 ng/dL VITALS There were no vitals filed for this visit. Wt Readings from Last 3 Encounters: 07/30/24 63.1 kg (139 lb 1.6 oz) 03/27/24 63.1 kg (139 lb 3.2 oz) 03/14/24 64.6 kg (142 lb 8 oz) There is no height or weight on file to calculate BMI. CURRENT MEDICATIONS: Current Outpatient Medications Medication Sig Dispense Refill VITAMIN D 1000 UNITS PO CAPS 1 capsule daily 90 Cap 3 Magnesium 500 MG Oral Tablet Take 1 Tablet by mouth in the morning. Vitamin B-12 100 MCG Oral Tablet (vitamin B-12) Take 1 Tablet by mouth in the morning. Unsure of dose. Probiotic Acidophilus BioBeads Oral Capsule Take 1 Capsule by mouth in the morning. Unsure of dose. LORazepam 0.5 MG Oral Tablet (Ativan) Take 1 Tablet by mouth daily as needed for Anxiety. 30 Tablet2 busPIRone HCl 15 MG Oral Tablet (Buspar) Take 1 Tablet by mouth in the morning and 1 Tablet at noonand 1 Tablet before bedtime. With meals. 90 Tablet 3 QUEtiapine Fumarate 200 MG Oral Tablet (SEROquel) Take 1 Tablet by mouth at bedtime. 30 Tablet 3 QUEtiapine Fumarate 25 MG Oral Tablet (SEROquel) Take 0.5 Tablets by mouth in the morning and 0.5 Tablets at noon and 0.5 Tablets in the evening. Levothyroxine Sodium 88 MCG Oral Tablet (Levoxyl) Take 1 Tablet by mouth in the morning. (at least 30 min prior to breakfast or other meds). 90 Tablet 3 No current facility-administered medications for this visit. FAMILY HISTORY: Family History Problem Relation Name Age of Onset Thyroid Disorder Mother h/o Graves Hypertension Mother Hyperlipidemia Mother Dementia Mother 80s Hypertension Father Thyroid Disorder Father hyopthyroidisim Heart Disorder Father 60 CABG in 60s; pacemaker & PAD Diabetes Father diet controlled Eye Problems Father glaucoma Thyroid Disorder Sister hypothyriodism Heart Disorder Brother CABG in 50s Thyroid Disorder Brother Eye Problems Brother glaucoma No Known Problems Daughter Hypertension Son Breast Cancer Cousin (Maternal) Breast Cancer Aunt (Maternal) PAST MEDICAL HISTORY: Past Medical History: Diagnosis Date Carpal tunnel syndrome 04/25/2008 Other specified acquired hypothyroidism 1990s 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 No delusions elicited Perception: Denied any auditory or visual hallucinations Insight: Good Judgment: Good Orientation: Oriented to person, place and time Attention/Concentration: Good Memory: Grossly intact Language: Fluent Fund of Knowledge: Adequate [place]-SUICIDE SEVERITY RATING SCALE Frequent Screener Ask questions that are bold and underlined Since Last Contact (Richy with an X) YES NO Have you actually had thoughts about killing yourself? x If YES, ask the following questions. If NO, go directly to the last question Have you been thinking about how you might do this? Have you had these thoughts and had some intention of acting on them? E.g. I thought about taking an overdose, but I never made a specific plan as to when where or how I would actually do it.and I would never go through with it. Have you started to work out or worked out the details of how to kill yourself? Do you intend to carry out this plan? As opposed to I have the thoughts, but I definitely will not do anything about them. Have you done anything, started to do anything, or prepared to do anything to end your life? Examples: Collected pills, obtained a gun, gave away valuables, wrote a will or suicide note, took out pills but didn't swallow any, held a gun but changed your mind or it was grabbed from your hand,went to the roof but didn't jump; or actually took pills, tried to shoot yourself, cut yourself, tried to hang yourself, etc. x Low Risk Complete or review crisis plan with patient Discuss risk/protective factors and reasons for living Moderate Risk Complete or review crisis plan with patient Discuss risk/protective factors and reasons for living Discuss removal of means High Risk Maintain 1 to 1 monitoring until assessment is completed Evaluate for higher level of care (Inpatient or [facility]) Consultation with Emergency Services as appropriate If patient not admitted: Complete or review crisis plan with patient Discuss risk/protective factors and reasons for living Advise removal of means Consider family or collateral contact to promote safety Schedule follow up care consistent with assessment ASSESSMENT AND PLAN: Diagnosis: ICD-10-CM 1. Major depressive disorder, recurrent episode, moderate (HCC) F33.1 2. Generalized anxiety disorder F41.1 3. Insomnia, unspecified type G47.00 Plan: Medications: - Increased buspirone to 20 mg Po TID with meals - Continue quetiapine 12.5 mg PO TID PRN for anxiety. - Continue Ativan 0.5 mg Po daily PRN severe anxiety. Pt and son insisted that this is the only medication that calms her down. Explained to monique that it can cause worsening of confusion/memory problems, dependence, tolerance, and risk of falls with termite control representative use. - Continue quetiapine 200 mg PO HS Therapy: Continue therapy sessions Community Resources: None Lab tests/Medical: None Safety: No risk to self or others Return in: 4 weeks Advised to see a neurologist for head imaging and possible referral to neuropsych testing as she c/o STM issues. D/w pt about talking to her therapist about behavioral activation - making list pf activities that she could do during the day and then put the, on her daily schedule and make the schedule for a weekin advance and stick to the schedule on daily basis. This will keep her occupied all through the day. D/w pt about trying to be positive and look for positives in her own life. Son will look into day programs for seniors and for volunteer work for the patient to be busy during the day. Treatment options and alternatives reviewed with patient who agrees with the above plan. Information about current medications was provided to the patient including reasons why medications are being used. Patient understood the risks, benefits, side-effects, and potential complications associated with changes in medications being proposed (both medications being started and medications being discontinued or having dose changed). Patient is making an informed medical decision to follow the recommendations outlined in this note. Directed patient to call with any questions or concerns, worseningsymptoms and/or ask for earlier appointment. Their current psychosocial stressors were discussed with the patient. Supportive psychotherapy was provided to help them with better coping with their current stressors. Breathing, relaxation, distraction and behavioral activation techniques were explained to the patient where and when clinically indicated. The importance of medication compliance was reinstated. The importance of heathy diet, regular exercise and daily sleep hygiene/routine was reiterated to the patient. Risk assessment was performed. This is a patient being treated for mental health conditions and/or substance use disorder as characterized above. At the time of this visit, there was no indication that this patient was either a risk to self, others, or gravely disabled by symptoms of a mental illness or substance use disorder. At the time of this evaluation, patient did not appear to be an acute risk to self or others. There were enough protective factors in place and it was deemed safe and appropriate to continue with treatment on a outpatient basis with return to clinic in the timeframe described below. We reviewed previous crisis plan should he/she experience worsening of symptoms before next follow-up appointment, including being aware of what resources to use according to the urgency and severityof symptoms. Lakisha Shepard was able to verbalize understanding of the steps necessary to obtain help between appointments should be needed, from requesting a phone call, to requesting an appointment sooner, including reaching clinic after hours, accessing our system, and accessing emergency mental health and medical services, either at a local emergency department or by activating mobile crisis teams and EMS. Time Spent on Visit: 30 minutes Time spent on counseling over and above medication management: 17 minutes Billing code: [id number] and [id number] Leon Mendes MD Psychiatrist, [facility] 08/06/2024 documented in this encounter Plan of Treatment Upcoming Encounters Date Type Department Care Team (Late st Contact Info) Description 09/06/2024 9:30 AM EDT Telemedicine Psychiatry Ede Kamara [address] [address] Leon Mendes MD [address] [place] [address] 10/07/2024 10:00 AM EST Nutrition Services Nutrition Services [address] [facility] [address] [place] [address] Holli Cobian, LIAM 30 [facility] [address] [place] [address] 11/04/2024 11:20 AM EST Office Visit Family Practice [address] [facility] [address] [place] [address] Shyam Mckenna DO [address] [place] [place] [address] Scheduled Procedures Name Priority [...] 09/02/2015, Additional history exists HbA1c 03/14/2025 03/14/2024, /2 02/2023, 08/06/2012 Depression Monitoring 06/28/2025 06/28/2024 TSH [...] as of this encounter Visit Diagnoses Diagnosis Generalized anxiety disorder- Primary Major depressive disorder, recurrent episode, moderate (HCC) Major depressive disorder, recurrent episode, moderate Insomnia, unspecified type documented in this encounter Care Teams Drawing Box Tender Relationship Specialty Start Date End Date Shyam Mckenna DO [address] [place] [address] PCP - General Family Medicine 07/30/24 documented as of this encounter
--- OUTSIDE RECORDS SUMMARY | 2024-09-26 09:02 | External Medical Summary | Summary of Care ---
Author Name Unknown Organization [facility] Address [address] [place] [address] Phone [phone] Care Team Providers Care Leather Leveler Name Role Phone ClarisaShyam Primary Care Provider + [phone] Reason for Visit * Reason Onset Date Comments Referral 07/31/2024 Encounter Details Date Type Department Care Team (Late st Contact Info) Description 07/31/2024 Telephone [facility] [address] [place] [address] [facility] Referral Allergies Active Allergy Reactions Criticality Noted Date [...] in the morning. Unsure of dose. Active Levothyroxine Sodium 75 MCG Oral Tablet (Levoxyl)Indications:H ypothyroidism, unspecified type Take 1 Tablet by mouth daily first thing in the morning. 90 Tablet 3 07/21/2023 Active LORazepam 0.5 MG Oral Tablet (Ativan) [...] and 0.5 Tablets in the evening. Active documented as of this encounter (statuses [...] encounter Miscellaneous Notes * Telephone Encounter - Farida Cheung OSA - 08/01/2024 11:02 AM EDT members daughter called back in and stated that they got a call and she was helping her mother out just needs a list of providers Email address is [email or web address] Sent a list out to the family * Telephone Encounter - Farida Cheung OSA - 07/31/2024 3:56 PM EDT Epic 178 referral reason for the referral Major depressive disorder, recurrent episode, moderate Primary Acquired hypothyroidism Prediabetes Dyslipidemia, goal LDL below needs Referral for psychology Outcome Called [phone] and had to leave a VM for the member. If call is returned please assistwith getting the member resources and providers for therapy. Next outreach is scheduled for 08/05/2024 documented in this encounter Plan of Treatment Upcoming Encounters Date Type Department Care Team (Late st Contact Info) Description 08/05/2024 12:45 PM EDT Appointment Radiology, [place] [place] [address] 08/06/2024 10:30 AM EDT Telemedicine Psychiatry Ede Kamara [address] [address] Leon Mendes MD [address] [address] 10/07/2024 10:00 AM EST Nutrition Services Nutrition Services [address] [place] [address] [address] [place] [address] Holli Cobian, LIAM 30 [facility] [address] [place] [address] 11/04/2024 11:20 AM EST Office Visit Family Practice [address] [place] [address] [address] [place] [address] Shyam Mckenna DO [address] [place] [id number] Scheduled Procedures Name Priority Associated Diagnoses Date/Ti [...] of 2) 05/08/2023 03/13/2023 Mammogram 09/20/2023 09/20/2022, 1011/2020, 08/28/2020, Additional history exists COVID-19 Vaccine (3 - season) 2024 03/05/2021, 02/05/2021 Influenza Vaccine (FLU shot) (#1) 2024 09/05/2018, 08/20/2016, 09/02/2015, Additional history exists HbA1c 03/14/2025 03/14/2024, 02/19, 08/06/2012 Depression Monitoring 06/28/2025 06/28/2024 TSH 07/31/2025 07/31/2024, 05/05/2024, 03/14/2024, Additional history exists Colonoscopy 12/07/2025 12/07/2015, [...] filedocumented as of this encounter Care Teams Leather Leveler Relationship Specialty Start Date End Date Shyam Mckenna DO [address] [place] [address] PCP - General Family Medicine 07/30/24 documented as of this encounter
--- OUTSIDE RECORDS SUMMARY | 2024-09-26 09:02 | External Medical Summary ---
Author Name Unknown Address Unknown Organization [id number]:[facility] [place] - [address] [place] [address] Laboratory Report Ordering Provider Test Date Status HENRIK NAVAO 07/31/2024 14:04:55 Final Observation Date Value Abnormality Reference (Units ) Status TSH 07/31/2024 14:04:55 6.10 Above high normal 0. 27-4.20 (uIU/mL) Final Performing Location [facility] [place] - [address] [place] [address]
--- OUTSIDE RECORDS SUMMARY | 2024-09-26 09:02 | External Medical Summary ---
Author Name Unknown Address Unknown Organization [id number]:[facility] [place] [address] [place] [address] Laboratory Report Ordering Provider Test Date Status BRANDYPATRICIA RIVERAEO 07/31/2024 14:04:55 Final Observation Date Value Abnormality Reference (Units ) Status T4, Free 07/31/2024 14:04:55 1.1 0.9-1.7 (n g/dL) Final Performing Location LABORATORY [facility] - [address] [place] [address]
--- OUTSIDE RECORDS SUMMARY | 2024-09-26 09:02 | External Medical Summary | Summary of Care ---
Author Name Unknown Organization [facility] Address [address] [place] [address] Phone [phone] Care Team Providers Care Clock And Watch Hands Mounter Name Role Phone Meenu Phelps PA-C Primary Care Provider [phone] Reason for Visit * Reason Onset Date Comments Advice 04/19/2024 Lorazepam refill Encounter Details Date Type Department Care Team ([facility] Contact Info) Description 04/19/2024 [address]phone [facility] [place] [address] Meenu Phelps PA-C [facility] [place] [address] Advice (Lorazepam refill ) Allergies Active Allergy Reactions Criticality Noted Date Comments Bee Stings Other (Please comment) High 05/01/2002 anaphylaxis in 1990s; subsequent stings without reaction documented as of this encounter (statuses as of 07/19/2024) Medications Medication Sig Dispensed Refills Start Date End Date Status VITAMIN D 1000 UNITS PO CAPSIndications:Vitami n D insufficiency 1 capsule daily 90 Cap 3 10/28/2013 Active Magnesium 500 MG Oral Tablet Take by mouth 500 mg in the morning. Active Zinc 50 MG Oral Tablet Take by mouth 50 mg in the morning. Active Biotin 10 MG Oral Capsule Take 1 Capsule by mouth in the morning. Unsure of dose. Active Vitamin B-12 100 MCG Oral Tablet [...] the morning. 90 Tablet 3 07/21/2023 Active documented as of this encounter (statuses as of 07/19/2024) Active Problems Problem Noted Date Diagnosed Date Major depressive disorder, recurrent episode, mo derate 04/05/2024 Insomnia 04/05/2024 Anxiety disorder 03/26/2024 Polyp, cervix 12/10/2020 IFG (impaired fasting glucose) 12/25/2019 Overview: 11/2019 FBG 103 Dyslipidemia, goal LDL below 130 04/30/2010 Overview: 10 year ASCVD risk 11/18/2016 = 3.9% Hypothyroidism Toxic effect of venom Overview: ICD-10 update of inactive term documented as of this encounter (statuses as of 07/19/2024) Resolved Problems Problem Noted Date Diagnosed Date [...] as of this encounter (statuses as of 07/19/2024) Immunizations Name Administration Dates Next Due COVID-19 [...] the money to buy more. Never true 04/05/20 24 Within the past 12 months, t he food you bought just didn't last and you didn't have money to get more. Never true 04/05/2024 Childcare Answer Date Recorded Do you feel overwhelmed with taking care of a child, family member or friend? Yes 04/05/2024 Does your family need help f inding childcare? (Household - for ages 0-17 years) Not on file 04/05/2024 Clothing Answer Date Recorded Have you been unable to get clothing when it was really needed? No 04/05/2024 Is your family able to get c lothes or diapers when needed? (Household - for ages 0-17 years) Not on file 04/05/2024 Personal Safety Answer Date Recorded Do you feel unsafe or have concerns for your saf ety? No 04/05/2024 Do you have concerns for you r family's safety? (Household - for ages 0-17 years) Not on file 04/05/2024 Utilities Answer Date Recorded Do you have trouble paying y our heating, water, or electric bill? No 04/05/2024 Is your family able to pay t he heat, water, or electric bill? (Household - for ages 0-17 years) Not on file 04/05/2024 Does your family have access to good internet? (Household - for ages 0-17 years) Not on file 04/05/2024 Employment Status Answer Date Recorded Are you unemployed or without regular income? No 04/05/2024 Does the household have a re gular source of income? (Household - for ages 0-17 years) Not on file 04/05/2024 Social Connections Answer Date Recorded How often do you feel lonely or isolated from those around you? Sometimes 04/05/2024 Financial Resource Strain Answer Date R ecorded Do you have any trouble payi ng for your medications, or do you think you might in the future? No 04/05/2024 Does your family have troubl e paying for medicine? (Household - for ages 0-17 years) Not on file 04/05/2024 Transportation Needs Answer Date Record ed READ ONLY Do you have troubl e getting a ride to medical visits or work? Never True 04/05/2024 Does your family have a hard time getting a ride to doctors visits? (Household - for ages 0-17 years) Not on file 04/05/2024 Has lack of transportation k ept you from medical appointments, meetings, work, or from getting things needed for daily living? Check all that apply. (Adult - for ages 18 years and over) Not on file 04/05/2024 Do you (or your family) have trouble finding or paying for a ride (transportation)? (Household - for ages 0-17 years) Not on file 04/05/2024 Housing Stability Answer Date Recorded Do you currently live in a s helter or have no steady place to sleep at night? No 04/05/2024 READ ONLY Do you think you a re at risk of becoming homeless? No 04/05/2024 Does your family worry about paying for your home or becoming homeless? (Household - for ages 0-17 years) Not on file 0 04/05/2024 Are you homeless or worried that you might be in the future? (Adult - for ages 18 years and over) Not on file Are you (or your family) edgar eless or worried that you might be in the future? (Household - for ages 0-17 years) Not on file Food Insecurity Answer Date Recorded Do you need food for this week? No 04/05/2024 Are you able to get enough f ood for your family? (Household - for ages 0-17 years) Not on file 04/05/2024 Does your family need food t his week? (Household - for ages 0-17 years) Not on file 04/05/2024 Do you always have enough fo od for your family? (Household - for ages 0-17 years) Not on file 04/05/2024 Sex and Gender Information Value Date Recorded Sex Assigned at Not on file Gender Identity Not on file Sexual Orientation Not on file Job Start Date Occupation Industry Not on file Not on file Not on file documented as of this encounter Miscellaneous Notes * Telephone Encounter - Leon Mendes MD - 04/19/2024 12:35 PM EDT I replied to the family to schedule an appt to evaluate the pt's medications * Telephone Encounter - Rubens Espino LPN - 04/19/2024 12:15 PM EDT There have been multiple messages with psychiatry regarding medication adjustments. Routing to psych for further recommendations. * Telephone Encounter - Cassie Patterson OSA - 04/19/2024 11:49 AM EDT Patient son called patient had recent evaluated in ED for anxiety she is to follow up with [facility] office on 04/29/24. No acute openings in person or via video. Patient son states she is having a lot ofanxiety and is asking for a refill of Lorazepam until she can follow up with psych [facility] documented in this encounter Plan of Treatment Upcoming Encounters Date Type Department Care Team (Late st Contact Info) Description 07/30/2024 2:40 PM EDT [facility]acy [facility] [address] [place] [place] [address] [place], Pharmacist [address] [place] [address] 07/30/2024 3:00 PM EDT Office Visit [facility] [address] [place] [place] [address] Shyam Mckenna DO [address] [place] [address] 08/06/2024 10:30 AM EDT Telemedicine Psychiatry Ede Kamara [address] [place] [phone] Leon Mendes MD [address] [place] [address] 09/30/2024 11:20 AM EST Office Visit [facility] [address] [place] [address] Meenu Phelps PA-C [address] [place], [place] [phone] Scheduled Procedures Name Priority Associated Diagnoses Date/Ti [...] 2) 05/08/2023 03/13/2023 COVID-19 Vaccine (3 - 2022- season) 2023 03/05/2021, 02/05/2021 Mammogram 09/20/2023 09/20/2022, 08/21, 08/28/2020, Additional history exists Influenza Vaccine (FLU shot) (#1) 2024 09/05/2018, 08/20/2016, 09/02/2015, Additional history exists TSH 03/26/2025 03/26/2024, 02/19, 03/13/2023, Additional history exists Depression Monitoring 06/28/2025 06/28/2024 Colonoscopy 12/07/2025 12/07/2015, 12/07/2015 Colorectal Cancer Screening [...] filedocumented as of this encounter Care Teams Clock And Watch Hands Mounter Relationship Specialty Start Date End Date Meenu Phelps PA-C 21 [facility] [place] [phone] PCP - General Physician Frontload Driver 03/13/23 documented as of this encounter
--- OUTSIDE RECORDS SUMMARY | 2024-09-26 09:02 | External Medical Summary | Summary of Care ---
Author Name Unknown Organization [facility] Address [address] [place] [address] Phone [phone] Care Team Providers Care Director Of Knowledge Management Name Role Phone Von Mckennainic Primary Care Provider [phone] Reason for Visit * Reason Comments Dosage Adjustment In Person (Anticoag Cl inic) Medication Management Encounter Details Date Type Department Care Team ([facility] Contact Info) Description 07/30/2024 2:40 PM EDT Pharmacy [facility] [address] [place] [address] [place], Pharmacist [address] [place] [address] Encounter for medication review* Allergies Active Allergy Reactions Criticality Noted Date Comments Bee Stings Other (Please comment) High 05/01/2002 anaphylaxis in 1990s; subsequent stings without reaction documented as of this encounter (statuses as of 07/30/2024) Medications Medication Sig Dispensed Refills Start Date [...] dose. 07/30/2024 Discontinued (Medication List Clean Up) QUEtiapine Fumarate 25 MG Oral Tablet (SEROquel)Indicatio ns:Generalized anxiety disorder Take 1 Tablet by mouth in the morning and 1 Tablet at noon and 1 Tablet before bedtime. 90 Tablet 3 07/01/2024 07/30/2024 Discontinued (Medication List Clean Up) documented as of this encounter (statuses as of 07/30/2024) Active Problems Problem Noted Date Diagnosed Date [...] as of this encounter (statuses as of 07/30/2024) Resolved Problems Problem Noted Date Diagnosed Date [...] as of this encounter (statuses as of 07/30/2024) Immunizations Name Administration Dates Next Due COVID-19 [...] as of this encounter Progress Notes * Jose Scanlon, [facility] - 07/30/2024 2:48 PM EDT Medication Therapy [facility] - Medication Reconciliation Lakisha Shepard is an 73 year old being seen for medication reconciliation. Prescription insurance information: GHP Do you have any other prescription coverage: No Preferred pharmacy: [facility] ([facility]) [] Problem list reviewed [x] Allergies reviewed and updated if needed [x] Drug interaction check completed [] HEDIS list addressed Immunizations: Declines Medication Organization/Adherence: Has home care nurse or caregiver: no Patient uses a pill box? No When you are at home, how often do you miss doses of medications? Less than once a week Reports specifically missing daytime doses of quetiapine due to drowsiness How difficult is it for you to pay for your medications? Not difficult at all How often do you experience side effects from your medications? Daily Reports specifically drowsiness due to quetiapine Labs/Vitals/Risk Scores: The 10-year ASCVD risk score (Bulmaro ROSALES, et al., 2019) is: 9.7% Values used to calculate the score: Age: 73 years Sex: Female Is Non- : No Diabetic: No Tobacco smoker: No Systolic Blood Pressure: 126 mmHg Is BP treated: No HDL Cholesterol: 94 mg/dL Total Cholesterol: 217 mg/dL BP Readings from Last 3 Encounters: 03/27/24 126/82 03/26/24 161/108 03/14/24 134/82 Recent Labs Units 03/14/24 0858 03/13/23 0846 HEMOGLOBIN A1C - [facility] % 5.9* 5.6 Recent Labs Units 03/26/24 0831 03/14/24 0858 03/13/23 0846 ESTIMATED GLOMERULAR FILTRATION RATE - [facility] mL/min >90 72 79 Serum creatinine: 0.7 mg/dL 03/26/24 08 Estimated creatinine clearance: 55.1 mL/min Assessment & Plan: Medication discrepancies identified: - taking 1/2 tablet of quetiapine TID, instead of 1 tablet due to drowsiness Dose/frequency of medications appropriate for current renal function? yes Other medication problems identified: - constipation, previously took probiotic but stopped Patient education provided: - importance of medication compliance and taking as directed, notify prescriber of intolerances andSE - OTC and supplements, reading ingredients label and serving size Referral pended for follow up management of: N/A Summary- Changes & Recommendations: - Recommend restarting Probiotic I spent a total of 20-29 minutes (exact time 20 mins) on the date of service in preparation, delivery, and documentation of the care provided to Lakisha Shepard excluding any time spent in the performance of separately billed services or time spent by another provider/QHP. Jose Scanlon [facility] Clinical Pharmacist - [employer] Medication Therapy Management [facility] 07/30/2024, 2:48 PM documented in this encounter Plan of Treatment Upcoming Encounters Date Type Department Care Team (Late st Contact Info) Description 08/05/2024 12:45 PM EDT Appointment Radiology, [address] [place] [phone] 08/06/2024 10:30 AM EDT Telemedicine Psychiatry Ede Kamara [address] [place] [phone] Leon Mendes MD [address] [place] [phone] 10/07/2024 10:00 AM EST Nutrition Services Nutrition Services [address] [place] [address] [address] [place] [address] Holli Cobian RDN 30 [facility] [address] [place] [address] 11/04/2024 11:20 AM EST Office Visit Family Practice [facility] [address] [place] [address] Shyam Mckenna DO [address] [place] [address] Scheduled Procedures Name Priority [...] history exists HbA1c 03/14/2025 03/14/2024, 02/19, 08/06/2012 TSH 03/26/2025 03/26/2024, 02/19, 03/13/2023, Additional history [...] as of this encounter Visit Diagnoses Diagnosis Encounter for medication review- Primary Encounter for long-term (current) use of other medications documented in this encounter Care Teams Director Of Knowledge Management Relationship Specialty Start Date End Date Shyam Mckenna DO [address] [place] [phone] PCP - General Family Medicine 07/30/24 documented as of this encounter
--- OUTSIDE RECORDS SUMMARY | 2024-09-26 09:02 | External Medical Summary | Summary of Care ---
Author Name Unknown Organization [facility] Address [address] [place] [address] Phone [phone] Care Team Providers Care Television Announcer Name Role Phone Von Mckennainic Primary Care Provider [phone] Reason for Visit * Reason Comments Outpatient Testing Encounter Details Date Type Department Care Team (Late st Contact Info) Description 07/31/2024 1:50 PM EDT Laboratory Laboratory, [place] [address] [place] [address] [place], [facility] [address] [place] [address] Acquired hypothyroidism Allergies Active Allergy Reactions Criticality Noted Date Comments Bee Stings Other (Please comment) High 05/01/2002 anaphylaxis in 1990s; subsequent stings without reaction documented as of this encounter (statuses as of 07/31/2024) Medications Medication Sig Dispensed Refills Start Date [...] as of this encounter (statuses as of 07/31/2024) Active Problems Problem Noted Date Diagnosed Date [...] as of this encounter (statuses as of 07/31/2024) Resolved Problems Problem Noted Date Diagnosed Date [...] as of this encounter (statuses as of 07/31/2024) Immunizations Name Administration Dates Next Due COVID-19 [...] PM EDT Appointment Radiology, [place] [address] 08/06/2024 10:30 AM EDT Telemedicine Psychiatry Ede Kamara [address] [place] [phone] Leon Mendes MD [address] [place] [phone] 10/07/2024 10:00 AM EST [facility] [address] [place] [address] Holli Cobian RDN 30 [facility] [address] [place] [phone] 11/04/2024 11:20 AM EST Office Visit Family Practice 65 [facility] [place] [address] [place] [address] Shyam Mckenna, DO [address] [place] [phone] Pending Results Name Type Priority Associated Diagnoses Date /Time THYROID ANTIBODY AND TPO ANTIBODY Lab Routine Acquired hypothyroidism 07/31/2024 2:04 PM EDT T3, TOTAL Lab Routine Acquired hypothyroidism 07/31/2024 2:04 PM EDT TSH WITH FREE T4 IF INDICATED Lab Routine Acquired hypothyroidism 07/31/2024 2:04 PM EDT Scheduled Procedures Name Priority Associated Diagnoses Date/Ti [...] Additional history exists COVID-19 Vaccine ( - 2022- season) 2024 03/05/2021, 02/05/2021 Influenza Vaccine (FLU shot) (#1) 2024 09/05/2018, 08/20/2016, 09/02/2015, Additional history exists HbA1c 03/14/2025 03/14/2024, 2 02/2023, 08/06/2012 TSH 03/26/2025 03/26/2024, 02/19, 03/13/2023, Additional [...] of this encounter Visit Diagnoses Diagnosis Acquired hypothyroidism Unspecified hypothyroidism documented in this encounter Care Teams Television Announcer Relationship Specialty Start Date End Date Shyam Mckenna DO [address] [place] [address] PCP - General Family Medicine 07/30/24 documented as of this encounter
--- OUTSIDE RECORDS SUMMARY | 2024-09-26 09:02 | External Medical Summary | Summary of Care ---
Author Name Unknown Organization [facility] Address [address] [place] [address] Phone [phone] Care Team Providers Care Business Office Coordinator Name Role Phone Meenu Phelps PA-C Primary Care Provider [phone] Encounter Details Date Type Department Care Team (Late st Contact Info) Description 05/22/2024 8:30 AM EDT [facility] [address] [place] [address] Leon Mendes MD [address] [place] [address] Generalized anxiety disorder*; Major depressive disorder, recurrent episode, moderate (HCC); Insomnia, unspecified type; Primary insomnia Allergies Active Allergy Reactions Criticality Noted Date Comments Bee Stings Other (Please comment) High 05/01/2002 anaphylaxis in 1990s; subsequent stings without reaction documented as of this encounter (statuses as of 05/22/2024) Medications Medication Sig Dispensed Refills Start Date [...] the morning. 90 Tablet 3 07/21/2023 Active QUEtiapine Fumarate 25 MG Oral Tablet (SEROquel)Indicatio ns:Generalized anxiety disorder Take 1 Tablet by mouth in the morning and 1 Tablet at noon and 1 Tablet before bedtime. 90 Tablet 3 04/29/2024 Active QUEtiapine Fumarate 200 MG Oral Tablet (SEROquel) Take 1 Tablet by mouth at bedtime. 30 Tablet 3 04/29/2024 Active busPIRone HCl 10 MG Oral Tablet (Buspar) Take 1 Tablet by mouth in the morning and 1 Tablet at noon and 1 Tablet before bedtime. With meals. 90 Tablet 3 05/22/2024 Active LORazepam 0.5 MG Oral Tablet (Ativan) Take 1 Tablet by mouth daily as needed for Anxiety. 30 Tablet 05/22/2024 Active busPIRone HCl 5 MG Oral Tablet (Buspar) Take 1 Tablet by mouth in the morning and 1 Tablet at noon and 1 Tablet before bedtime. With meals. 90 Tablet 2 05/14/2024 05/22/2024 Discontinued (Refill) LORazepam 0.5 MG Oral Tablet (Ativan) Take 1 Tablet by mouth daily as needed for Anxiety. 10 Tablet 05/17/2024 05/22/2024 Discontinued (Refill) hydrOXYzine HCl 25 MG Oral TabletIndications:G eneralized anxiety disorder,Primary insomnia Take 1 Tablet by mouth 3 times a day as needed for Anxiety. 90 Tablet 05/17/2024 05/22/2024 Discontinued (Patient preference/d iscontinuati on) documented as of this encounter (statuses as of 05/22/2024) Active Problems Problem Noted Date Diagnosed Date [...] as of this encounter (statuses as of 05/22/2024) Resolved Problems Problem Noted Date Diagnosed Date [...] as of this encounter (statuses as of 05/22/2024) Immunizations Name Administration Dates Next Due COVID-19 mRNA, LNP-s, No Pre serve, 2-Dose Series (Moderna) 03/05/2021,02/05/2021 Seasonal Influenza, Quadriva lent, No Preserve, IM 09/05/2018 Seasonal Influenza, Split, I IV3, With Preserve, Inj 08/20/2016,09/02/2015,09/03/2014,2012 TDAP, Age 7 and older, IM [...] Date Recorded PHQ Adult Total Score 2 05/03/2024 Exercise Vital Sign Answer Date Recorde d [...] Progress Notes * Leon Mendes MD - 05/22/2024 8:28 AM EDT OUTPATIENT PSYCHIATRY RETURN VISIT DIVISION OF PSYCHIATRY [address] [address] Name: Lakisha Shepard : 1950 Date and Time Patient was Seen: 05/22/2024 at 8:29 AM After connecting through televideo, patient was verified with two unique identifiers. Patient (or authorized legal sales representative church furniture) was then informed that this was a [...] that I have reviewed their record in [employer] and presented the opportunity for them to ask any questions regarding the visit today. The patient agreed to participate. Patient location: HOME. I was not in a hospital or clinic location. After connecting through televideo, patient was verified with two unique identifiers. Patient (or authorized legal sales representative church [employer]) was then informed that this was a Telemedicine visit and being conducted confidentially over secure lines. Methods to assure confidentiality were taken. Patient acknowledged consent and understanding of privacy and security of the Telemedicine visit. The patient agreed to participate. CC: Follow up visit Depression, anxiety and insomnia INTERVAL HISTORY: Her son, Dom was present during the appointment. Pt said that she is doing better in the last few days. She said that she is anxious every day and she is overwhelmed at times. She said she feels better when she is busy caring for her mother and when she is spending time with her kids or friends. She is anxious when she is alone at home and has not much to do. She said that she is unhappy with her life, current situation and she feels that "other people has ve better lives than her"> she is unable to identify specific triggers but worse when alone and doing nothing. She said sh has no side effects with buspar, but not helping much at the current dose. She said hydroxyzine is not helping. Dom reported that after her last visit she continues to be anxious and the son left her for a weekand half. Her garage door broke down and then her anxiety got worse. She was manny constant state of panic and her son had to come to live with her. He said that the only way she calmed down was with alorazepam. He said that she was close to going to the ER. He said that she does worse when she is alone and when she has nothing to do. She gets anxious when she has nothing to do and she feels she muct be out there doing something or the other. Psychiatric ROS Sleep: Better with lorazepam, 6-7 hours Appetite: Good Suicidal ideation: Denied Homicidal ideation: Denied Psychosis: None reported Monica: None reported PTSD: None reported Panic attacks: None reported Memory issues: None reported Med Compliance: Good Side effects: None reported D+A Use Alcohol: None Nicotine: None Other substances: None Medical Issues Acute medical issues at present: None Last PCP Visit: 8 weeks ago, no issues MEDICAL REVIEW OF SYSTEMS: No fever/dizziness/blurred vision/cough/chest [...] 3 Magnesium 500 MG Oral Tablet Take by mouth 500 mg in the morning. Zinc 50 MG Oral Tablet Take by mouth 50 mg in the morning. Biotin 10 MG Oral Capsule Take 1 Capsule by mouth in the morning. Unsure of dose. Vitamin B-12 100 MCG Oral Tablet (vitamin B-12) Take 1 Tablet by mouth in the morning. Unsure of dose. Probiotic Acidophilus BioBeads Oral Capsule Take 1 Capsule by mouth in the morning. Unsure of dose. Levothyroxine Sodium 75 MCG Oral Tablet (Levoxyl) Take 1 Tablet by mouth daily first thing in the morning. 90 Tablet 3 QUEtiapine Fumarate 25 MG Oral Tablet (SEROquel) Take 1 Tablet by mouth in the morning and 1 Tabletat noon and 1 Tablet before bedtime. 90 Tablet 3 QUEtiapine Fumarate 200 MG Oral Tablet (SEROquel) Take 1 Tablet by mouth at bedtime. 30 Tablet 3 busPIRone HCl 5 MG Oral Tablet (Buspar) Take 1 Tablet by mouth in the morning and 1 Tablet at noon and 1 Tablet before bedtime. With meals. 90 Tablet 2 LORazepam 0.5 MG Oral Tablet (Ativan) Take 1 Tablet by mouth daily as needed for Anxiety. 10 Tablet0 hydrOXYzine HCl 25 MG Oral Tablet Take 1 Tablet by mouth 3 times a day as needed for Anxiety. 90 Tablet 0 No current facility-administered medications for this visit. RECENT LABS/IMAGING: No results found for this or any previous visit (from the past 672 hour(s)). VITALS There were no vitals filed for this visit. Wt Readings from Last 3 Encounters: 03/27/24 63.1 kg (139 lb 3.2 oz) 03/14/24 64.6 kg (142 lb 8 oz) 03/13/23 68 kg (150 lb) There is no height or weight on file to calculate BMI. CURRENT MEDICATIONS: Current Outpatient Medications Medication Sig Dispense Refill VITAMIN D 1000 UNITS PO CAPS 1 capsule daily 90 Cap 3 Magnesium 500 MG Oral Tablet Take by mouth 500 mg in the morning. Zinc 50 MG Oral Tablet Take by mouth 50 mg in the morning. Biotin 10 MG Oral Capsule Take 1 Capsule by mouth in the morning. Unsure of dose. Vitamin B-12 100 MCG Oral Tablet (vitamin B-12) Take 1 Tablet by mouth in the morning. Unsure of dose. Probiotic Acidophilus BioBeads Oral Capsule Take 1 Capsule by mouth in the morning. Unsure of dose. Levothyroxine Sodium 75 MCG Oral Tablet (Levoxyl) Take 1 Tablet by mouth daily first thing in the morning. 90 Tablet 3 QUEtiapine Fumarate 25 MG Oral Tablet (SEROquel) Take 1 Tablet by mouth in the morning and 1 Tabletat noon and 1 Tablet before bedtime. 90 Tablet 3 QUEtiapine Fumarate 200 MG Oral Tablet (SEROquel) Take 1 Tablet by mouth at bedtime. 30 Tablet 3 busPIRone HCl 5 MG Oral Tablet (Buspar) Take 1 Tablet by mouth in the morning and 1 Tablet at noon and 1 Tablet before bedtime. With meals. 90 Tablet 2 LORazepam 0.5 MG Oral Tablet (Ativan) Take 1 Tablet by mouth daily as needed for Anxiety. 10 Tablet0 hydrOXYzine HCl 25 MG Oral Tablet Take 1 Tablet by mouth 3 times a day as needed for Anxiety. 90 Tablet 0 No current facility-administered medications for this visit. FAMILY HISTORY: Family History Problem Relation Name Age of Onset Thyroid Disorder Mother h/o Graves Hypertension Mother Diabetes Mother diet controlled Hyperlipidemia Mother Dementia Mother 80s Hypertension Father [...] tunnel syndrome 04/25/2008 Other specified acquired hypothyroidism Toxic effect of venom(989.5) hymenoptera sting SUMMARY [...] for higher level of care (Inpatient or PHP) Consultation with Emergency Services as appropriate If [...] Insomnia, unspecified type G47.00 Plan: Medications: - Stop duloxetine due to adverse effects, more anxiety - Increase buspirone to 10 mg Po TID with meals - Continue quetiapine 25 mg PO TID PRN for anxiety. - Continue Ativan 0.5 mg Po daily PRN severe anxiety. Pt and son insisted that this is the oonly medication that calms her down. Explained to monique that it can cause worsening of confusion/memory problems, dependence, tolerance, and risk of falls with senior care use. - Stop hydroxyzine as not helping - Continue quetiapine 200 mg PO HS Therapy: Continue therapy sessions Community Resources: None Lab tests/Medical: None Safety: No risk to self or others Return in: 4 weeks D/w pt about talking to her therapist [...] above medication management: 17 minutes Billing code: [id number] Leon Mendes MD Psychiatrist, [facility] 05/22/2024 documented in this encounter Plan of Treatment Upcoming Encounters Date Type Department Care Team (Late st Contact Info) Description 07/01/2024 9:30 AM EDT Telemedicine Psychiatry Scott Melendrez [place] [address] [address] Leon Mendes MD [address] [place] [address] 09/30/2024 11:20 AM EST Office Visit Family Practice, [place] [address] [facility] [address] [place] [phone] Meenu Phelps PA-C [address] [place] [address] 10/02/2024 9:00 AM EST Office Visit Psychiatry, [place] [address] [phone] Sonali Lewis CRNP [address] [place] [address] Scheduled Procedures Name Priority Associated Diagnoses Date/Ti me COLONOSCOPY FLEXIBLE PROXIMAL DIAGNOSTIC Recall Colon cancer screening Health Maintenance Due Date Last Done Comments DTaP,Tdap,and Td Vaccines (1 - Tdap) 1971 Cologuard 1997 Sigmoidoscopy 1997 Fecal Occult Blood Test 05/25/2013 05/25/2012, 04/29 Pneumococcal Vaccine: 65+ Years (1 of 1 - PCV) 2017 Zoster Vaccines (2 of 2) 05/08/2023 03/13/2023 COVID-19 Vaccine (3 - 2022- season) 2023 03/05/2021, 02/05/2021 Mammogram 09/20/2023 09/20/2022, 08/21, 08/28/2020, Additional history exists Influenza Vaccine (FLU shot) (#1) 2024 09/05/2018, 08/20/2016, 09/02/2015, Additional history exists TSH 03/26/2025 03/26/2024, 02/19, 03/13/2023, Additional history exists Depression Monitoring 05/03/2025 05/03/2024 Colonoscopy 12/07/2025 12/07/2015, 12/07/2015 Colorectal Cancer Screening [...] disorder, recurrent episode, moderate Insomnia, unspecified type Primary insomnia Persistent disorder of initiating or maintaining sleep documented in this encounter Care Teams Business Office Coordinator Relationship Specialty Start Date End Date Meenu Phelps PA-C [address] [phone] PCP - General Physician Volunteer Coordinator 03/13/23 documented as of this encounter
--- OUTSIDE RECORDS SUMMARY | 2024-09-26 09:02 | External Medical Summary | Summary of Care ---
Author Name Unknown Organization [facility] Address [address] [place] [address] Phone [phone] Care Team Providers Care Instant Print Operator Name Role Phone Meenu Phelps PA-C Primary Care Provider [phone] Reason for Visit * Evaluate & Treat - Unlimited Visits (Within 3 days (urgent)) - Authorized Specialty Diagnoses / Procedures Referred By Tram sorto Referred To Contact Psychiatry Diagnoses Generalized anxiety disorder Primary insomnia Meenu Phelps PA-C [address] [place] [address] Sonali Lewis CRNP [address] [place] [address] Referral ID Status Reason Start Date Expiration Date Visits Requested Visits Authorized [id number] Authorized Specialty Services Required 03/27/2024 [id number] Encounter Details Date Type Department Care Team (Late st Contact Info) Description 07/01/2024 9:30 AM EDT Telemedicine Psychiatry [facility] [address] [place] [address] Leon Mendes MD [address] [place] [address] Generalized anxiety disorder*; Major depressive disorder, recurrent episode, moderate (HCC); Insomnia, unspecified type Allergies Active Allergy Reactions Criticality Noted Date Comments Bee Stings Other (Please comment) High 05/01/2002 anaphylaxis in 1990s; subsequent stings without reaction documented as of this encounter (statuses as of 07/01/2024) Medications Medication Sig Dispensed Refills Start Date [...] 90 Tablet 3 07/01/2024 Active QUEtiapine Fumarate 25 MG Oral Tablet (SEROquel)Indicatio ns:Generalized anxiety disorder Take 1 Tablet by mouth in the morning and 1 Tablet at noon and 1 Tablet before bedtime. 90 Tablet 3 07/01/2024 Active QUEtiapine Fumarate 200 MG Oral Tablet (SEROquel) Take 1 Tablet by mouth at bedtime. 30 Tablet 3 07/01/2024 Active QUEtiapine Fumarate 25 MG Oral Tablet (SEROquel)Indicatio ns:Generalized anxiety disorder Take 1 Tablet by mouth in the morning and 1 Tablet at noon and 1 Tablet before bedtime. 90 Tablet 3 04/29/2024 07/01/2024 Discontinued (Refill) QUEtiapine Fumarate 200 MG Oral Tablet (SEROquel) Take 1 Tablet by mouth at bedtime. 30 Tablet 3 04/29/2024 07/01/2024 Discontinued (Refill) LORazepam 0.5 MG Oral Tablet (Ativan) Take 1 Tablet by mouth daily as needed for Anxiety. 30 Tablet 05/22/2024 07/01/2024 Discontinued (Refill) busPIRone HCl 15 MG Oral Tablet (Buspar) Take 1 Tablet by mouth in the morning and 1 Tablet at noon and 1 Tablet before bedtime. With meals. 90 Tablet 1 06/19/2024 07/01/2024 Discontinued (Refill) documented as of this encounter (statuses as of 07/01/2024) Active Problems Problem Noted Date Diagnosed Date [...] as of this encounter (statuses as of 07/01/2024) Resolved Problems Problem Noted Date Diagnosed Date [...] as of this encounter (statuses as of 07/01/2024) Immunizations Name Administration Dates Next Due COVID-19 [...] Progress Notes * Leon Mendes MD - 07/01/2024 9:39 AM EDT OUTPATIENT PSYCHIATRY RETURN VISIT DIVISION OF PSYCHIATRY [place] [address] Name: Lakisha Shepard : 1950 Date and Time Patient was Seen: 07/01/2024 at 9:40 AM After connecting through televideo, patient was verified with two unique identifiers. Patient (or authorized legal liability claims representative) was then informed that this was a Telemedicine visit and that the exam was being conducted confidentially over secure lines. My office door was closed. No one else wasin the room with me. Patient acknowledged consent and understanding of privacy and security of the Telemedicine visit, and gave permission to have a telemedicine presenter stay in the room in order to assist with the history and to conduct the exam as needed. I informed the patient that I have reviewed their record in [facility] and presented the opportunity for them to ask any questions regarding the v isit today. The patient agreed to participate. Patient location: HOME. I was not in a hospital or clinic location. After connecting through televideo, patient was verified with two unique identifiers. Patient (or authorized legal liability claims representative) was then informed that this was a Telemedicine visit and being conducted confidentially over secure lines. Methods to assure confidentiality were taken. Patient acknowledged consent and understanding of privacy and security of the Telemedicine visit. The patient agreed to participate. CC: Follow up visit Depression, anxiety and insomnia INTERVAL HISTORY: Her daughter, Johana was present during the appointment. Pt said that she is not doing well since her last visit. She said that she continues to be anxious and she is unable to relax, restless and she is pacing all day long. She said that the lorazepam takes the edge of for a short while. She said she has no motivation to do anything and she is frustrated and tired of feeling anxious. She denied any other current stressors. She feels drowsy os seroqueland does not take it during the day. Johana said that the pt is anxious and restless all the time and she may be depressed as well as she does not take care of her house. She has no motivation to do anything. She has no relief from the meds. Psychiatric ROS Sleep: Better with lorazepam, 7-8 hours, feels rested Appetite: Good Suicidal ideation: Denied Homicidal ideation: Denied Psychosis: None reported Monica: None reported PTSD: None reported Panic attacks: None reported Memory issues: None reported Med Compliance: Good Side effects: None reported D+A Use Alcohol: None Nicotine: None Other substances: None Medical Issues Acute medical issues at present: None Last PCP Visit: 3 months ago, no issues MEDICAL REVIEW OF SYSTEMS: [...] by mouth at bedtime. 30 Tablet 3 LORazepam 0.5 MG Oral Tablet (Ativan) Take 1 Tablet by mouth daily as needed for Anxiety. 30 Tablet0 busPIRone HCl 15 MG Oral Tablet (Buspar) Take 1 Tablet by mouth in the morning and 1 Tablet at noonand 1 Tablet before bedtime. With meals. 90 Tablet 1 No current facility-administered medications for this visit. [...] by mouth at bedtime. 30 Tablet 3 LORazepam 0.5 MG Oral Tablet (Ativan) Take 1 Tablet by mouth daily as needed for Anxiety. 30 Tablet0 busPIRone HCl 15 MG Oral Tablet (Buspar) Take 1 Tablet by mouth in the morning and 1 Tablet at noonand 1 Tablet before bedtime. With meals. 90 Tablet 1 No current facility-administered medications for this visit. [...] Insomnia, unspecified type G47.00 Plan: Medications: - Continue buspirone 15 mg Po TID with meals - Continue quetiapine 12.5 mg PO TID PRN for anxiety. - Continue Ativan 0.5 mg Po daily PRN severe anxiety. Pt and son insisted that this is the oonly medication that calms her down. Explained to monique that it can cause worsening of confusion/memory problems, dependence, tolerance, and risk of falls with remote computer terminal operator use. - Continue quetiapine 200 mg PO [...] above medication management: 17 minutes Billing code: [id number] and [id number] Leon Mendes MD Psychiatrist, [facility] 07/01/2024 documented in this encounter Plan of Treatment Upcoming Encounters Date Type Department Care Team (Late st Contact Info) Description 08/06/2024 10:30 AM EDT Telemedicine Psychiatry [facility] [address] [address] Leon Mendes MD [address] [place] [address] 09/30/2024 11:20 AM EST [facility] [address] [address] Meenu Phelps PA-C [address] [address] Scheduled Procedures Name Priority Associated Diagnoses Date/Ti [...] 05/08/2023 03/13/2023 COVID-19 Vaccine (3 - season) 2023 03/05/2021, 02/05/2021 Mammogram 09/20/2023 09/20/2022, [...] type documented in this encounter Care Teams Instant Print Operator Relationship Specialty Start Date End Date Meenu Phelps PA-C [address] [address] PCP - General Physician [facility] [employer] 03/13/23 documented as of this encounter
--- OUTSIDE RECORDS SUMMARY | 2024-09-26 09:02 | External Medical Summary | Summary of Care ---
Author Name Unknown Organization [facility] Address [address] [place] [address] Phone [phone] Care Team Providers Care Checker Bakery Products Name Role Phone ClarisaShyam Primary Care Provider [phone] Reason for Visit * Reason Onset Date Comments Referral 07/31/2024 Encounter Details Date Type Department Care Team (Late st Contact Info) Description 07/31/2024 Telephone [facility] [address] [place] [address] [facility] Referral Allergies Active Allergy Reactions Criticality Noted [...] below needs Referral for psychology Outcome Called [phone] and had to leave a VM for the member. If call is returned please assistwith getting the member resources and providers for therapy. Next outreach is scheduled for 08/05/2024 documented in this encounter Plan of Treatment Upcoming Encounters Date Type Department Care Team (Late st Contact Info) Description 08/05/2024 12:45 PM EDT Appointment Radiology, [place] [address] [phone] 08/06/2024 10:30 AM EDT Telemedicine Psychiatry [facility] [address] [address] Leon Mendes MD [address] [address] 10/07/2024 10:00 AM EST Nutrition Services Nutrition Services [address] [facility] [address] [place] [place] [address] Holli Cobian, LIAM 30 [facility] [address] [place] [address] 11/04/2024 11:20 AM EST Office Visit Family Practice [address] [facility] [address] [place] [address] Shyam Mckenna DO [address] [place] [address] Scheduled Procedures Name Priority Associated Diagnoses Date/Ti [...] Additional history exists COVID-19 Vaccine (3 - 2022- season) 2024 03/05/2021, 02/05/2021 Influenza [...] filedocumented as of this encounter Care Teams Checker [employer]ery Products Relationship Specialty Start Date End Date Shyam Mckenna DO [address] [place] [phone] PCP - General Family Medicine 07/30/24 documented as of this encounter
--- OUTSIDE RECORDS SUMMARY | 2024-09-26 09:02 | External Medical Summary | Summary of Care ---
Author Name Unknown Organization [facility] Address [address] [place] [address] Phone [phone] Care Team Providers Care Award Machine Operator Name Role Phone Shyam Mckenna DO Primary Care Provider [phone] Reason for Visit * Reason Onset Date Comments NEW PATIENT 07/31/2024 Encounter Details Date Type Department Care Team (Late st Contact Info) Description 07/31/2024 Telephone Family Practice 65 [facility] [address] [place] [address] Shyam Mckenna DO [address] [place] [address] NEW PATIENT Allergies Active Allergy Reactions Criticality Noted Date [...] encounter Miscellaneous Notes * Telephone Encounter - Mercedes Ellis OSA - 07/31/2024 3:38 PM EDT Discussed GOLD requirement, patient acknowledges and understands. documented in this encounter Plan of Treatment Upcoming Encounters Date Type Department Care Team (Late st Contact Info) Description 08/05/2024 12:45 PM EDT Appointment Radiology, [place] [address] [address] 08/06/2024 10:30 AM EDT Telemedicine Psychiatry [place] [address] [address] Leon Mendes MD [address] [address] 10/07/2024 10:00 AM [facility] Nutrition Services Nutrition Services [address] [place] [address] [place] [address] Holli Cobian, RDN 30 [facility] [address] [place] [address] 11/04/2024 11:20 AM EST Office Visit Family Practice [address] [facility] [place] [address] [place] [address] Shyam Mckenna DO [address] [address] Scheduled Procedures Name Priority Associated Diagnoses Date/Ti [...] filedocumented as of this encounter Care Teams Award Machine Operator Relationship Specialty Start Date End Date Shyam Mckenna DO [address] [place] [address] PCP - General Family Medicine 07/30/24 documented as of this encounter
--- OUTSIDE RECORDS SUMMARY | 2024-09-26 09:02 | External Medical Summary ---
Author Name Unknown Address Unknown Organization K01:[facility] - [facility] [address] [place] [id number] Laboratory Report Ordering Provider Test Date Status AMI NAVA 07/31/2024 14:04:55 Final Observation Date Value Abnormality Reference (Units ) Status Thyroperoxidase Ab [Units/volume] in Serum or Plasma by Immunoassay 07/31/2024 14:04:55 8.9 <34.0 (IU/mL) Final Thyroglobulin Ab 07/31/2024 14:04:55 18.2 <115.0 (IU/mL) Final Performing Location [facility] - [facility] [place] [id number]
--- OUTSIDE RECORDS SUMMARY | 2024-09-26 09:03 | External Medical Summary | Summary of Care ---
Author Name Unknown Organization [facility] Address [address] [place] [address] Phone [phone] Care Team Providers Care Machine Long Goods Helper Name Role Phone Meenu Phelps PA-C Primary Care Provider [phone] Reason for Visit * Reason Onset Date Comments Medication Refill 05/17/2024 Encounter Details Date Type Department Care Team (Late st Contact Info) Description 05/17/2024 Refill [facility], 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 With meals. 90 Tablet 2 05/14/2024 Active LORazepam 0.5 MG Oral Tablet (Ativan) Take 1 Tablet by mouth daily as needed for Anxiety. 10 Tablet 05/17/2024 Active hydrOXYzine HCl 25 MG Oral TabletIndications:G eneralized anxiety disorder,Primary insomnia Take 1 Tablet by mouth 3 times a day as needed for Anxiety. 90 Tablet 05/17/2024 Active hydrOXYzine HCl 25 MG Oral TabletIndications:G eneralized anxiety disorder,Primary insomnia Take 1 Tablet by mouth 3 times a day as needed for Anxiety. 90 Tablet 03/27/2024 05/17/2024 Discontinued (Refill) LORazepam 0.5 MG Oral Tablet (Ativan) Take 1 Tablet by mouth daily as needed for Anxiety. 10 Tablet 04/19/2024 05/17/2024 Discontinued (Refill) documented as of this encounter (statuses as of 05/17/2024) Active Problems Problem Noted Date Diagnosed Date [...] as of this encounter (statuses as of 05/17/2024) Resolved Problems Problem Noted Date Diagnosed Date [...] as of this encounter (statuses as of 05/17/2024) Immunizations Name Administration Dates Next Due COVID-19 [...] 04/05/2024 Does the household have a re lar [...] encounter Miscellaneous Notes * Telephone Encounter - Saurabh Gandara MD - 05/17/2024 12:59 PM EDTSigned Prescriptions: Disp Refills LORazepam 0.5 MG Oral Tablet (Ativan) 10 Tab*0 Sig: Take 1 Tablet by mouth daily as needed for Anxiety. Authorizing Provider: SAURABH GANDARA hydrOXYzine HCl 25 MG Oral Tablet 90 Tab*0 Sig: Take 1 Tablet by mouth 3 times a day as needed for Anxiety. Authorizing Provider: SAURABH GANDARA * Telephone Encounter - Trina Dias LPN - 05/17/2024 12:42 PM EDTPending Prescriptions: Disp Refills LORazepam 0.5 MG Oral Tablet (Ativan) 10 Tab*0 Sig: Take 1 Tablet by mouth daily as needed for Anxiety. hydrOXYzine HCl 25 MG Oral Tablet 90 Tab*0 Sig: Take 1 Tablet by mouth 3 times a day as needed for Anxiety. * Telephone Encounter - Trina Dias LPN - 05/17/2024 12:40 PM EDT Refill request from patient (JulianaG) for lorazepam. Medication last filled on 04/19/24 with 0 refills. Patient last seen on 04/29/24 with return appointment scheduled for 05/22/24. Patient had 2 cancelled appointments and 0 NO SHOW appointments. documented in this encounter Plan of Treatment Upcoming Encounters Date Type Department Care Team (Late [facility]) Description 05/22/2024 8:30 AM EDT Telemedicine Psychiatry [place] [address] [place] [phone] Saurabh Gandara MD [address] [facility] [place] [address] 09/30/2024 11:20 AM EST Office Visit Family Practice, [place] [address] [facility] [phone] Meenu Phelps PA-C [address] [facility] [place] [id number] 10/02/2024 9:00 AM EST Office Visit Psychiatry, [place] [address] [facility] [place] [phone] Sonali Lewis CRNP [address] [place] [address] Scheduled Procedures Name Priority Associated Diagnoses Date/Ti [...] Additional history exists Influenza Vaccine (FLU shot) (Season Ended) 2024 09/05/2018, 08/20/2016, 09/02/2015, Additional history exists TSH 03/26/2025 03/26/2024, 02/19, 03/13/2023, Additional history exists Depression Monitoring 05/03/2025 05/03/2024 Colonoscopy 12/07/2025 12/07/2015, 12/07/2015 Colorectal Cancer Screening 12/07/2025 Lipid Panel 03/14/2029 03/14/2024, 02/19, 03/11/2022, Additional history exists DXA Scan 04/07/2030 04/07/2023 GARDASIL-HPV IMMUNIZATION SERIES Aged Out No longer eligible based on patient's age to complete this topic Hepatitis B Aged Out No longer eligi ble based on patient's age to complete this topic MENINGOCOCCAL (MENACTRA/MENVEO) Aged Out No longer eligible based on patient's age to complete this topic documented as of this encounter Medical Devices Not on filedocumented as of this encounter Visit Diagnoses Diagnosis Generalized anxiety disorder Primary insomnia Persistent disorder of initiating or maintaining sleep documented in this encounter Care Teams Machine Long Goods Helper Relationship Specialty Start Date End Date Meenu Phelps PA-C [address] [facility] [place] [phone] PCP - General Physician Antique Refinisher 03/13/23 documented as of this encounter
--- OUTSIDE RECORDS SUMMARY | 2024-09-26 09:03 | External Medical Summary | Summary of Care ---
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 90 Tablet 3 07/21/2023 Active hydrOXYzine HCl 25 MG Oral TabletIndications:Gene ralized anxiety disorder,Primary insomnia Take 1 Tablet by mouth 3 times a day as needed for Anxiety. 90 Tablet 03/27/2024 Active DULoxetine HCl 30 MG Oral Capsule Delayed Release Particles (Cymbalta) Take 1 Capsule by mouth in the morning. With food in the morning. 30 Capsule 3 04/12/2024 Active QUEtiapine Fumarate 50 MG Oral Tablet (SEROquel)Indications: Generalized anxiety disorder Take 2 Tablets by mouth at bedtime. May also take 0.5 Tablets 2 times a day as needed for Anxiety. 60 Tablet 1 04/12/2024 Active LORazepam 0.5 MG Oral Tablet (Ativan) Take 1 Tablet by mouth daily as needed for Anxiety. 10 Tablet 04/19/2024 Active documented as of this encounter (statuses as of 04/19/2024) Active Problems Problem Noted Date Diagnosed Date [...] as of this encounter (statuses as of 04/19/2024) Resolved Problems Problem Noted Date Diagnosed Date [...] as of this encounter (statuses as of 04/19/2024) Immunizations Name Administration Dates Next Due COVID-19 [...] Answer Date Recorded PHQ Adult Total Score 20 03/27/2024 Exercise Vital Sign Answer Date Recorde d [...] money to get more. Never true 04/05/2024 Sex and Gender Information Value Date Recorded Sex Assigned at Not on file Gender Identity Not on file Sexual Orientation Not on file Job Start Date Occupation Industry Not on file Not on file Not on file documented as of this encounter Plan of Treatment Upcoming Encounters Date Type Department Care Team (Late st Contact Info) Description 04/29/2024 9:00 AM EDT Telemedicine Psychiatry [place], [address] [place] [phone] Leon Mendes MD [address] [place] [phone] 09/30/2024 11:20 AM EST Office Visit Family Practice, [place] [address] [place] [phone] Meenu Phelps PA-C [address] [place] [address] 10/02/2024 9:00 AM EST Office Visit Psychiatry, [place] [address] [place] [place] [phone] Sonali Lewis CRNP [address] [facility] [place] [address] Scheduled Procedures Name Priority Associated Diagnoses Date/Ti [...] 09/20/2023 09/20/2022, 08/21, 08/28/2020, Additional history exists Depression, Most Recent Score >= 10 (will fire each visit until score < 10) 03/28/2024 03/27/2024 Influenza Vaccine (FLU shot) (Season Ended) 2024 09/05/2018, 08/20/2016, 09/02/2015, Additional history exists TSH 03/26/2025 03/26/2024, 02/19, 03/13/2023, Additional history exists Colonoscopy 12/07/2025 12/07/2015, 12/07/2015 [...] filedocumented as of this encounter Care Teams Medical Specialist Relationship Specialty Start Date End Date Meenu Phelps PA-C [address] [place] [address] PCP - General Physician Salad Chef 03/13/23 documented as of this encounter
--- OUTSIDE RECORDS SUMMARY | 2024-09-26 09:03 | External Medical Summary | Summary of Care ---
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 90 Tablet 03/27/2024 Active DULoxetine HCl 30 MG Oral Capsule Delayed Release Particles (Cymbalta) Take 1 Capsule by mouth in the morning. With food in the morning. 30 Capsule 3 04/12/2024 Active QUEtiapine Fumarate 25 MG Oral Tablet (SEROquel)Indicatio ns:Generalized anxiety disorder Take 4 Tablets by mouth at bedtime. May also take 0.5 Tablets 2 times a day as needed for Anxiety. 60 Tablet 1 04/12/2024 Active QUEtiapine Fumarate 25 MG Oral Tablet (SEROquel)Indicatio ns:Generalized anxiety disorder Take 2 Tablets by mouth at bedtime. May also take 0.5 Tablets 2 times a day as needed for Anxiety. 90 Tablet 2 04/05/2024 04/12/2024 Discontinue d(Refill) DULoxetine HCl 20 MG Oral Capsule Delayed Release Particles (Cymbalta) Take 1 Capsule by mouth in the morning. With food in the morning. 30 Capsule 2 04/05/2024 04/12/2024 Discontinue d(Refill) documented as of this encounter (statuses as of 04/12/2024) Active Problems Problem Noted Date Diagnosed Date [...] as of this encounter (statuses as of 04/12/2024) Resolved Problems Problem Noted Date Diagnosed Date [...] as of this encounter (statuses as of 04/12/2024) Immunizations Name Administration Dates Next Due COVID-19 mRNA, LNP-s, No Pre serve, 2-Dose Series (Moderna) 03/05/2021,02/05/2021 Seasonal Influenza, Quadriva lent, No Preserve, IM 09/05/2018 Seasonal Influenza, Split, I IV3, With Preserve, Inj 08/20/2016,09/02/2015,09/03/2014,2012 TDAP (age 11 and older)(Adacel) 04/27/20 09(Deferred: Patient Refused - pt will check with [...] Team (Late st Contact Info) Description 05/17/2024 9:30 AM EDT Telemedicine Psychiatry [place] [address] [place] [phone] Leon Mendes MD [address] [facility] [place] [address] 09/30/2024 11:20 AM EST [facility] [place] [facility] [place] [phone] Meenu Phelps PA-C [address] [facility] [place] [phone] 10/02/2024 9:00 AM EST Office Visit Psychiatry, [place] [address] [place] [address] Sonali Lewis CRNP [address] [place] [address] Scheduled Procedures Name Priority Associated Diagnoses Date/Ti [...] season) 2023 03/05/2021, 02/05/2021 Mammogram 09/20/2023 09/20/2022, 1011/2020, 08/28/2020, Additional history exists Depression, Most Recent [...] encounter Visit Diagnoses Diagnosis Generalized anxiety disorder documented in this encounter Care Teams Fitness Sales Associate Relationship Specialty Start Date End Date Meenu Phelps PA-C [address] [place] [phone] PCP - General Physician Associate Pathologist 03/13/23 documented as of this encounter
--- OUTSIDE RECORDS SUMMARY | 2024-09-26 09:03 | External Medical Summary | Summary of Care ---
Author Name Unknown Organization [facility] Address [address] [place] [address] Phone [phone] Care Team Providers Care Incubator Operator Name Role Phone Meenu Phelps PA-C Primary Care Provider [phone] Encounter Details Date Type Department Care Team (Late st Contact Info) Description 04/05/2024 11:00 AM EDT [facility] [address] [place] [address] Leon Mendes MD [address] [place] [address] Major depressive disorder, recurrent episode, moderate (HCC)*; Generalized anxiety disorder; Insomnia, unspecified type Allergies Active Allergy Reactions Criticality Noted Date Comments Bee Stings Other (Please comment) High 05/01/2002 anaphylaxis in 1990s; subsequent stings without reaction documented as of this encounter (statuses as of 04/05/2024) Medications Medication Sig Dispensed Refills Start Date End Date Status VITAMIN D 1000 UNITS PO CAPSIndications:Vit obrien D insufficiency 1 capsule daily 90 Cap 3 10/28/2013 Active Magnesium 500 MG Oral Tablet Take by mouth 500 mg in the morning. 0 Active Zinc 50 MG Oral Tablet Take by mouth 50 mg in the morning. 0 Active Biotin 10 MG Oral Capsule Take 1 Capsule by mouth in the morning. Unsure of dose. 0 Active Vitamin B-12 100 MCG Oral Tablet (vitamin B-12) Take 1 Tablet by mouth in the morning. Unsure of dose. 0 Active Probiotic Acidophilus BioBeads Oral Capsule Take 1 Capsule by mouth in the morning. Unsure of dose. 0 Active Levothyroxine Sodium 75 MCG Oral Tablet (Levoxyl)Indication s:Hypothyroidism, unspecified type Take 1 Tablet by mouth daily first thing in the morning. 90 Tablet 3 07/21/2023 Active hydrOXYzine HCl 25 MG Oral TabletIndications:G eneralized anxiety disorder,Primary insomnia Take 1 Tablet by mouth 3 times a day as needed for Anxiety. 90 Tablet 0 03/27/2024 Active QUEtiapine Fumarate 25 MG Oral Tablet (SEROquel)Indicatio ns:Generalized anxiety disorder Take 2 Tablets by mouth at bedtime. May also take 0.5 Tablets 2 times a day as needed for Anxiety. 90 Tablet 2 04/05/2024 Active DULoxetine HCl 20 MG Oral Capsule Delayed Release Particles (Cymbalta) Take 1 Capsule by mouth in the morning. With food in the morning. 30 Capsule 2 04/05/2024 Active QUEtiapine Fumarate 25 MG Oral Tablet (SEROquel)Indicatio ns:Generalized anxiety disorder,Primary insomnia Take 1 Tablet by mouth at bedtime. 30 Tablet 0 03/27/2024 04/05/2024 Discontinue d(Refill) LORazepam 0.5 MG Oral Tablet (Ativan)Indications :Generalized anxiety disorder,Primary insomnia,Panic attacks Take 1-2 Tablets by mouth 3 times a day as needed for Anxiety or Insomnia. 30 Tablet 0 04/02/2024 04/05/2024 Discontinue d(Patient preference/ discontinua tion) documented as of this encounter (statuses as of 04/05/2024) Active Problems Problem Noted Date Diagnosed Date [...] as of this encounter (statuses as of 04/05/2024) Resolved Problems Problem Noted Date Diagnosed Date [...] as of this encounter (statuses as of 04/05/2024) Immunizations Name Administration Dates Next Due COVID-19 [...] Progress Notes * Leon Mendes MD - 04/05/2024 11:04 AM EDT OUTPATIENT BEHAVIORAL HEALTH INITIAL EVALUATION Patient location: HOME. I was not in a hospital or clinic location. After connecting through televideo, patient was verified with two unique identifiers. Patient (or authorized legal healthcare sales representative) was then informed that this was a Telemedicine visit and being conducted confidentially over secure lines. Methods to assure confidentiality were taken. Patient acknowledged consent and understanding of privacy and security of the Telemedicine visit. The patient agreed to participate. Provider determined this patient has capacity to receive and benefit from telehealth services. Timing assessment: This is the initial onset of the assessed illness: Depression, anxiety dn insomnia Face to Face Start Time: 1100 am Face to Face Stop Time: 1210 pm Referral Source: PCP: Meenu Phelps PA-C Risk Assessment: No acute safety concerns History of Present Illness: Lakisha Shepard is a 73 year old person that presents for depression, anxiety and insomnia. Her Son, Dom, daughter, Johana and her [id number], April were present during the appt. Pt said that she was doing well until one week ago, taking of herself, socializing and taking care of her mother. She said that she has not been sleeping for more than 1-2 hours each night and unableto sleep for last 1-2 months. She said that she went to bed around 10 or 11 pm and woke up within 2 hours and stayed up most of the night, tossing, turning and stayed in bed. She felt tired in the morning and she did not sleep during the day. She said that she continued to care for her mother, did activities at [employer], helped with nursery at [employer] and melas [employer] wheels through [employer]. She kept herself busy during the day with activities and tasks and still could not sleep at nights. She said that she could not sleep and she started to feel depressed and anxious in the last two months. She saidthat she did not feel like doing anything and did not feel good. She saw her PCP on 03/15 and she was started on Lexapro and trazodone. She could not tolerate trazodone due to "bad thoughts" and Lexapro did not help. She went on a bus trip to [place] from 03/18 to 03/23. On 03/25 she could not go tomeals on wheels and did not feel good. Her son took her to the ER and did some tests. They gave herthe hydroxyzine PRN and sent her home and advised family to watch her. Her son said that the hydroxyzine did not help and they went back to her PCP. Her PCP gave her Seroquel for sleep and that did not help. Her PCP gave her the Ativan. She is able to sleep few hours at night with Seroquel and Ativan, still disturbed. She is worried about her finances, and her family said she is doing fine with finances. Her daughter reported that she has constant intrusive thoughts and worries about her bills, finances, worried about her kids, her kids being here and about her mother. Depression Duration: 2 months Depressed mood: Yes, most days, on and off during the day Loss of energy: Yes Diminished interest/pleasure in almost all activities: Yes Poor motivation: At times Sleep: Poor, 1-2 hours Appetite: Reduced, forces to eat 1-2 meals a day Weight loss: Lost some weight in last few weeks Psychomotor activity: Good Feelings of worthlessness: Yes Feeling hopeless and helpless: At times Excessive guilt: Yes Diminished focus/concentration: Yes Recurrent thoughts of /SI or HI: No SI/HI, but had passive wish at times Triggers: Caring multimedia journalist for mother, her single friend started seeing someone, of her ex- in November, worried about medical bills Anxiety Duration: 2 months Presence of excessive worry: Yes, most days, on and off during the day Challenging to control worry: Yes, unable to stop worrying her kids and her finances Restlessness: Yes Easily fatigued: Yes Impaired concentration: Yes Irritability: AT times Increased muscle aches: No Difficulty sleeping: Yes Panic attacks: No Social Anxiety: No Phobias: No Triggers: Caring multimedia journalist for mother, her single friend started seeing someone, of her ex- in November, worried about medical bills. No symptoms of psychosis, ricki, hypomania, PTSD, OCD or memory issues reported. Psychiatry Review of Systems: PSYCHIATRY REVIEW OF SYSTEMS Pain screening: Is patient experiencing any pain related to today's visit? No Nutritional Screening: No concerns Past Psychiatric History: Outpatient Treatment: None Inpatient Treatment: Denies Self injury and suicide attempts: Denies Prior psychotropic medical trials: Hydroxyzine 25 mg TID PRN (1 week), Seroquel 25 mg HS (1 weeks) Ativan 0.5 mg PRN. Past meds - Lexapro for one week, stopped last week, Trazodone 50 mg for 3 nights History of trauma, abuse, exploitation or trafficking: none Substance Abuse History: None Family Psychiatric History: Psychiatric diagnoses: Denies Attempted suicides/ by suicide:Denies Drug and alcohol abuse: Denies Personal, Family and Social History: Living situation: Alone, no pets Education/Employment: HS grad, retired, works as a banker, [employer] History: None Legal History: None Intellectual Disability Diagnosis: No Activities of Daily Living: Good, independent with ADLs, chores at home, able to drive, pays bills and cares for mom Additional community service involvement: None Leisure and recreational interest: Reading books, watch TV, hangs out with friends, Moravian/Spiritual Orientation: Islam Raised by Parents, father - , close to mom, takes care of mom who lives alone, 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 Cardiac History: No Head Injury: No Seizures: No Recent labs/imaging: Relevant labs reviewed Mental Status Evaluation: Appearance: Well groomed, casually dressed, appearing stated age Abnormal Movement: No abnormal movements noted Behavior: Calm, cooperative and appropriate Speech and Language: Normal in rate, rhythm, volume and tone Mood: Depressed and anxious Affect: Appropriate to content and mood-congruent Thought Process: Logical, linear and goal directed Thought Content: No abnormal thought content Hallucinations: No perceptual disturbances Suicidality: No suicidal ideations, intent, method or plan or passive wish Homicidality: No homicidal ideations, intent, plan or target Orientation: Oriented to self, time, place and circumstances Attention: Intact Recent and Remote memory:Intact Insight: Good Judgement: Good Fund of Knowledge: Good Assessment/Formulation: Patient is a 73 yo female with depression, anxiety and sleep issues for last 2 months. Diagnosis: ICD-10-CM 1. Major depressive disorder, recurrent episode, moderate (HCC) F33.1 2. Generalized anxiety disorder F41.1 3. Insomnia, unspecified type G47.00 Plan: Medications:\\ - Start duloxetine 20 mg Po daily with breakfast. - Increase quetiapine 50 mg Po HS and 12.5 mg Po BID PRN anxiety during the day - Taper and D/c Ativan erwin to increased risk of dependence, tolerance, fall risk and rebound agitation - Hold off on hydroxyzine as it is not helping much Therapy: None Community Resources: None Lab tests/Medical: None Safety: No risk to self or others Return in: 4 weeks Information about current meds reviewed/provided /offered. Provider reviewed risks/benefits/side effects and potential complications. Recommended to not change meds/dosage without medical advise. Treatment options and recommendations/interventions reviewed. Patient and/or caregiver verbalize understanding and agrees to plan with explanation of risks/benefits, aware of how to contact clinic with questions. documented in this encounter Plan of Treatment Upcoming Encounters Date Type Department Care Team (Late st Contact Info) Description 04/08/2024 11:45 AM EDT Appointment Radiology, [facility] [address] [place] [address] 05/17/2024 9:30 AM EDT Telemedicine Psychiatry [facility] [address] [place] [address] [phone] Leon Mendes MD [address] [facility] [place] [phone] 05/22/2024 9:00 AM EDT Appointment Cardiac Studies, [facility] [address] [facility] [place] [address] 09/30/2024 11:20 AM EST Office Visit Family Practice, [place] [address] [phone] Meenu Phelps PA-C [address] [address] [address] 10/02/2024 9:00 AM EST Office Visit Psychiatry, [place] [address] [address] [phone] Sonali Lewis CRNP [address] [facility], [place] [address] Scheduled Procedures Name Priority Associated Diagnoses Date/Ti [...] as of this encounter Visit Diagnoses Diagnosis Major depressive disorder, recurrent episode, moderate (HCC)- Primary Major depressive disorder, recurrent episode, moderate Generalized anxiety disorder Insomnia, unspecified type documented in this encounter Care Teams Incubator Operator Relationship Specialty Start Date End Date Meenu Phelps PA-C [address] [address] [id number] PCP - General Physician Medical Liaison 03/13/23 documented as of this encounter
--- OUTSIDE RECORDS SUMMARY | 2024-09-26 09:03 | External Medical Summary | Summary of Care ---
Author Name Unknown Organization [facility] Address [address] [place] [address] Phone [phone] Care Team Providers Care Digital Archivist Name Role Phone Meenu Phelps PA-C Primary Care Provider [phone] Reason for Visit * Reason Onset Date Comments Forms Request 04/12/2024 Fmla form Encounter Details Date Type Department Care Team ([facility] Contact Info) Description 04/12/2024 Telephone [facility] [address] [facility] [place] [address] Meenu Phelps PA-C [address] [facility] [place] [address] Forms Request (Fmla form) Allergies Active Allergy Reactions Criticality Noted Date Comments Bee Stings Other (Please comment) High 05/01/2002 anaphylaxis in 1990s; subsequent stings without reaction documented as of this encounter (statuses as of 04/17/2024) Medications Medication Sig Dispensed Refills Start Date [...] for Anxiety. 60 Tablet 1 04/12/2024 Active documented as of this encounter (statuses as of 04/17/2024) Active Problems Problem Noted Date Diagnosed Date [...] as of this encounter (statuses as of 04/17/2024) Resolved Problems Problem Noted Date Diagnosed Date [...] as of this encounter (statuses as of 04/17/2024) Immunizations Name Administration Dates Next Due COVID-19 [...] encounter Miscellaneous Notes * Telephone Encounter - Asia Owusu OSA - 04/17/2024 7:23 AM EDT Forms picked up by PTS son Andrea Copy sent to [facility] * Telephone Encounter - Carmen De La Rosa LPN - 04/16/2024 9:43 AM EDT Form on [facility]'s desk for review/completion. * Telephone Encounter - Keyana Catalan OSA - 04/12/2024 7:28 AM EDT Andrea dropped off fmla forms to care for his Mother. Fmla is intermittent. Andrea did fillout many spaces on form. Please contact Andrea when form ready for pick pulling machine operator. Form placed in Meenu Phelps's mail bin. documented in this encounter Plan of Treatment Upcoming Encounters Date Type Department Care Team (Late st Contact Info) Description 05/17/2024 9:30 AM EDT Telemedicine Psychiatry [place] [address] [address] [phone] Leon Mendes MD [address] [facility] [place] [phone] 09/30/2024 11:20 AM EST Office Visit Family Practice, [place] [address] [phone] Meenu Phelps PA-C [address] [place] [address] [id number] 10/02/2024 9:00 AM EST [facility] [address] [place] [phone] Sonali Lewis CRNP [address] [place] [address] Scheduled Procedures Name Priority Associated Diagnoses Date/Ti [...] filedocumented as of this encounter Care Teams Digital Archivist Relationship Specialty Start Date End Date Meenu Phelps PA-C [address] [facility] [place] [address] PCP - General Physician Inspector Structural Bonding 03/13/23 documented as of this encounter
--- OUTSIDE RECORDS SUMMARY | 2024-09-26 09:03 | External Medical Summary | Summary of Care ---
Author Name Unknown Organization [facility] Address [address] [place] [address] Phone [phone] Care Team Providers Care Liquid Fertilizer Servicer Name Role Phone Meenu Phelps PA-C Primary Care Provider [phone] Encounter Details Date Type Department Care Team (Late st Contact Info) Description 04/12/[address] [place] [address] [facility] [address] [place], [place] [phone] Allergies Active Allergy Reactions Criticality Noted Date Comments Bee Stings Other (Please comment) High 05/01/2002 anaphylaxis in 1990s; subsequent stings without reaction documented as of this encounter (statuses as of 04/16/2024) Medications Medication Sig Dispensed Refills Start Date [...] the morning. 30 Capsule 3 04/12/2024 Active documented as of this encounter (statuses as of 04/16/2024) Active Problems Problem Noted Date Diagnosed Date [...] as of this encounter (statuses as of 04/16/2024) Resolved Problems Problem Noted Date Diagnosed Date [...] as of this encounter (statuses as of 04/16/2024) Immunizations Name Administration Dates Next Due COVID-19 [...] encounter Miscellaneous Notes * Telephone Encounter - Nicole Perez RPh - 04/12/2024 3:21 PM EDT The quetiapine sent in for the patient is not covered. Insurance will only cover a maximum of 3 tablets per day. Please consider resending for quetiapine 50mg 1.5 tablets at bedtime and a separate script for quetiapine 25mg 1/2 tab twice daily as needed for anxiety documented in this encounter Plan of Treatment Upcoming Encounters Date Type Department Care Team (Late st Contact Info) Description 05/17/2024 9:30 AM EDT Telemedicine Psychiatry Scott Melendrez [place] [address] [place] [address] [phone] Leon Mendes MD [address] [facility] [place] [phone] 09/30/2024 11:20 AM EST Office Visit Family [facility] [place] [address] [address] [phone] Meenu Phelps PA-C [address] [place] [address] [phone] 10/02/2024 9:00 AM EST Office Visit Psychiatry, [place] [address] [address] [phone] Sonali Lewis CRNP [address] [place] [address] Scheduled Procedures Name Priority Associated Diagnoses Date/Ti [...] filedocumented as of this encounter Care Teams Liquid Fertilizer Servicer Relationship Specialty Start Date End Date Meenu Phelps PA-C [address] [place] [address] [phone] PCP - General Physician Production Tester 03/13/23 documented as of this encounter
--- OUTSIDE RECORDS SUMMARY | 2024-09-26 09:03 | External Medical Summary | Summary of Care ---
Author Name Unknown Organization [facility] Address [address] [place] [address] Phone [phone] Care Team Providers Care Med Specialist Name Role Phone Meenu Phelps PA-C Primary Care Provider [phone] Encounter Details Date Type Department Care Team (Late st Contact Info) Description 04/12/2024 Orders Only Psychiatry, [place] [address] [place], [place] [phone] Leon Mendes MD [address] [place] [address] Generalized anxiety disorder Allergies Active [...] Active QUEtiapine Fumarate 50 MG Oral Tablet (SEROquel)Indicatio ns:Generalized anxiety disorder [...] needed for Anxiety. 60 Tablet 1 04/12/2024 04/12/2024 Discontinue d(Refill) documented as of this [...] Telemedicine Psychiatry [place] [address] [place] [phone] Leon Mendes MD [address] [facility] [place] [phone] 09/30/2024 11:20 AM EST Office Visit Family Practice, [place] [address] [place] [phone] Meenu Phelps PA-C [facility] [place] [address] 10/02/2024 9:00 AM EST Office Visit Psychiatry, [place] [address] [place] [address] [address] Sonali Lewis CRNP [address] [place] [address] Scheduled Procedures Name Priority Associated Diagnoses Date/Ti [...] disorder documented in this encounter Care Teams Med Specialist Relationship Specialty Start Date End Date Meenu Phelps PA-C [address] [place] [phone] PCP - General Physician Front Desk Assistant 03/13/23 documented as of this encounter
--- OUTSIDE RECORDS SUMMARY | 2024-09-26 09:03 | External Medical Summary | Summary of Care ---
Author Name Unknown Organization [facility] Address [address] [place] [address] Phone [phone] Care Team Providers Care Insurance Defense Attorney Name Role Phone Meenu Phelps PA-C Primary Care Provider [phone] Reason for Referral * Precert (Within 10 days (routine)) - Pending Review Specialty Diagnoses / Procedures Referred By Tram sorto Referred To Contact Radiology Diagnoses Panic attacks Personality change Insomnia, unspecified type Memory changes Decreased social interaction Procedures MRI BRAIN W WO CONTRAST [place] [address] Referral ID Status Reason Start Date Expiration Date V isits Requested Visits Authorized [id number] Pending Review 04/02/2024 999 999 Reason for Visit * Precert (Within 10 days (routine)) - Pending Review Specialty Diagnoses / Procedures Referred By Tram sorto Referred To Contact Radiology Diagnoses Panic attacks Personality change Insomnia, unspecified type Memory changes Decreased social interaction Procedures MRI BRAIN W WO CONTRAST Meenu Phelps PA-C [address] [facility] [address] Referral ID Status Reason Start Date Expiration Date V isits Requested Visits Authorized [id number] Pending Review 04/02/2024 999 999 Encounter Details Date Type Department Care Team (Latest Contact Info) Description 04/08/2024 11:22 AM EDT - 04/08/2024 11:59 PM EDT Hospital Encounter Radiology, [facility] [address] [facility] [place] [address] Arrived Discharge Disposition: Home - Self Care Allergies Active Allergy Reactions Criticality Noted Date Comments Bee Stings Other (Please comment) High 05/01/2002 anaphylaxis in 1990s; subsequent stings without reaction documented as of this encounter (statuses as of 04/09/2024) Medications Medication Sig Dispensed Refills Start Date [...] needed for Anxiety. 90 Tablet 03/27/2024 Active QUEtiapine Fumarate 25 MG Oral Tablet (SEROquel)Indications: Generalized anxiety disorder Take 2 Tablets by mouth at bedtime. May also take 0.5 Tablets 2 times a day as needed for Anxiety. 90 Tablet 2 04/05/2024 Active DULoxetine HCl 20 MG Oral Capsule Delayed Release Particles (Cymbalta) Take 1 Capsule by mouth in the morning. With food in the morning. 30 Capsule 2 04/05/2024 Active documented as of this encounter (statuses as of 04/09/2024) Active Problems Problem Noted Date Diagnosed Date [...] as of this encounter (statuses as of 04/09/2024) Resolved Problems Problem Noted Date Diagnosed Date [...] as of this encounter (statuses as of 04/09/2024) Immunizations Name Administration Dates Next Due COVID-19 [...] Telemedicine Psychiatry [place] [address] [place] [address] Leon Mendes MD [address] [facility] [place] [phone] 05/22/2024 9:00 AM EDT Appointment Cardiac Studies, [facility] [address] [facility] [place] [address] 09/30/2024 11:20 AM EST Office Visit Family Practice, [place] [address] [place] [phone] Meenu Phelps PA-C [address] [facility] [place] [address] 10/02/2024 9:00 AM EST Office Visit Psychiatry, [place] [address] [address] Sonali Lewis CRNP [address] [facility], [place] [address] Scheduled Procedures Name Priority Associated Diagnoses Date/Ti [...] Procedure Name Priority Date/Time Associated Diagnosis Comments MRI BRAIN W WO CONTRAST Routine 04/08/2024 12:39 PM EDT Panic attacks Personality change Insomnia, unspecified type Memory changes Decreased social interaction documented in this encounter Results * MRI BRAIN W WO CONTRAST (04/08/2024 12:39 PM EDT) Anatomical Region Laterality Modality Neuro, Head Magnetic Resonan ce 04/08/2024 5:03 PM EDT Impressions 04/08/2024 5:20 PM EDT IMPRESSION Negative pre- and post-contrast brain MRI. I have personally reviewed this examination and agree with the resident/fellow physician's interpretation. Narrative 04/08/2024 5:20 PM EDT EXAM MRI scan of the brain with and without contrast,04/08/2024 12:39 pm HISTORY personality change, insomnia COMPARISON None TECHNIQUE Multiplanar, multisequence magnetic resonance images of the brain are acquired before and after administration of IV contrast using standard protocol. FINDINGS The brain shows normal morphology, signal intensity, and volume for age. No space-occupying mass, brain edema, hemorrhage, hydrocephalus, midline shift, or extra-axial collection is noted. Diffusion-weighted sequence shows no restricted diffusion suspicious for acute ischemic infarction. No abnormal susceptibility artifact is noted on the gradient recalled echo sequence. A few tiny scattered T2 hyperintensities are seen, nonspecific. Post-contrast sequences reveal no abnormal enhancement. The pituitary gland, corpus callosum, pineal region, and other midline structures are normal in appearance. Brainstem, cerebellum, and craniovertebral junction are within normal limits. Expected intracranial vascular flow voids are grossly patent. Procedure Note Piper Voss MD - 04/08/2024 EXAM MRI scan of the brain with and without contrast,04/08/2024 12:39 pm HISTORY personality change, insomnia COMPARISON None TECHNIQUE Multiplanar, multisequence magnetic resonance images of the brain areacquired before and after administration of IV contrast using standardprotocol. FINDINGS The brain shows normal morphology, signal intensity, and volume for age.No space-occupying mass, brain edema, hemorrhage, hydrocephalus, midlineshift, or extra-axial collection is noted. Diffusion-weighted sequenceshows no restricted diffusion suspicious for acute ischemic infarction.No abnormal susceptibility artifact is noted on the gradient recalled echosequence. A few tiny scattered T2 hyperintensities are seen, nonspecific.Post-contrast sequences reveal no abnormal enhancement. The pituitary gland, corpus callosum, pineal region, and other midlinestructures are normal in appearance. Brainstem, cerebellum, andcraniovertebral junction are within normal limits. Expected intracranialvascular flow voids are grossly patent. IMPRESSION IMPRESSION Negative pre- and post-contrast brain MRI. I have personally reviewed this examination and agree with the resident/fellow physician's interpretation. 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 Insomnia, unspecified type Memory changes Memory loss Decreased social interaction Other general symptoms documented in this encounter Administered Medications Inactive Administered Medications - up to 3 most recent administrations Medication Order MAR Action Action Date Dose Rate Site gadobutrol (Gadavist) inj 2 mL 2 mL, Intravenous, ONCE, On 04/08/24 at 1241, For 1 dose Given 04/08/2024 12:41 PM EDT 6 mL documented in this encounter Care Teams Insurance Defense Attorney Relationship Specialty Start Date End Date Meenu Phelps PA-C [address] [facility] [place] [phone] PCP - General Physician Real Estate Inspector 03/13/23 documented as of this encounter
--- OUTSIDE RECORDS SUMMARY | 2024-09-26 09:03 | External Medical Summary | Summary of Care ---
Author Name Unknown Organization [facility] Address [address] [place] [address] Phone [phone] Care Team Providers Care Sap Fico Architect Name Role Phone Meenu Phelps PA-C Primary Care Provider [phone] Encounter Details Date Type Department Care Team (Late st Contact Info) Description 05/14/2024 Orders Only Psychiatry, [place] [address], [place] [id number] Leon Mendes MD [address] [place] [address] Allergies Active Allergy Reactions Criticality Noted Date Comments Bee Stings Other (Please comment) High 05/01/2002 anaphylaxis in 1990s; subsequent stings without reaction documented as of this encounter (statuses as of 05/14/2024) Medications Medication Sig Dispensed Refills Start Date [...] needed for Anxiety. 90 Tablet 03/27/2024 Active LORazepam 0.5 MG Oral Tablet (Ativan) Take 1 Tablet by mouth daily as needed for Anxiety. 10 Tablet 04/19/2024 Active QUEtiapine Fumarate 25 MG Oral Tablet [...] With meals. 90 Tablet 2 05/14/2024 Active DULoxetine HCl 30 MG Oral Capsule Delayed Release Particles (Cymbalta) Take 1 Capsule by mouth in the morning. With food in the morning. 30 Capsule 3 04/12/2024 05/14/2024 Discontinue d(Patient preference/ discontinua tion) documented as of this encounter (statuses as of 05/14/2024) Active Problems Problem Noted Date Diagnosed Date [...] as of this encounter (statuses as of 05/14/2024) Resolved Problems Problem Noted Date Diagnosed Date [...] as of this encounter (statuses as of 05/14/2024) Immunizations Name Administration Dates Next Due COVID-19 [...] Care Team (Late st Contact Info) Description 06/06/2024 10:30 AM EDT Telemedicine Psychiatry [place] [address] [place] [phone] Leon Mendes MD [address] [facility] [place] [phone] 09/30/2024 11:20 AM EST Office Visit Family Practice, [place] [address] [place] [phone] Meenu Phelps PA-C [address] [place] [address] 10/02/2024 9:00 AM EST Office Visit Psychiatry, [place] [address] [place] [address] [facility] CR[facility] [address] Scheduled Procedures Name Priority Associated Diagnoses Date/Ti [...] filedocumented as of this encounter Care Teams Sap Fico Architect Relationship Specialty Start Date End Date Meenu Phelps PA-C 21 [facility] [place] [phone] PCP - General Physician Hog Slaughterer 03/13/23 documented as of this encounter
--- OUTSIDE RECORDS SUMMARY | 2024-09-26 09:03 | External Medical Summary | Summary of Care ---
Author Name Unknown Organization [facility] Address [address] [place] [address] Phone [phone] Care Team Providers Care Outgoing Inspector Name Role Phone Meenu Phelps PA-C Primary Care Provider [phone] Encounter Details Date Type Department Care Team (Late st Contact Info) Description 04/29/2024 9:00 AM EDT [facility] [address] [place] [address] Leon Mendes MD [address] [place] [address] Generalized anxiety disorder*; Major depressive disorder, recurrent episode, moderate (HCC); Insomnia, unspecified type Allergies Active Allergy Reactions Criticality Noted Date Comments Bee Stings Other (Please comment) High 05/01/2002 anaphylaxis in 1990s; subsequent stings without reaction documented as of this encounter (statuses as of 04/29/2024) Medications Medication Sig Dispensed Refills Start Date [...] the morning. 30 Capsule 3 04/12/2024 Active LORazepam 0.5 MG Oral Tablet [...] at bedtime. 30 Tablet 3 04/29/2024 Active QUEtiapine Fumarate 50 MG Oral Tablet (SEROquel)Indicatio ns:Generalized anxiety disorder Take 2 Tablets by mouth at bedtime. May also take 0.5 Tablets 2 times a day as needed for Anxiety. 60 Tablet 1 04/12/2024 04/29/2024 Discontinue d(Refill) documented as of this encounter (statuses as of 04/29/2024) Active Problems Problem Noted Date Diagnosed Date [...] as of this encounter (statuses as of 04/29/2024) Resolved Problems Problem Noted Date Diagnosed Date [...] as of this encounter (statuses as of 04/29/2024) Immunizations Name Administration Dates Next Due COVID-19 [...] Progress Notes * Leon Mendes MD - 04/29/2024 9:11 AM EDT OUTPATIENT PSYCHIATRY RETURN VISIT DIVISION OF PSYCHIATRY [place] [id number] Name: Lakisha Shepard : 1950 Date and Time Patient was Seen: 04/29/2024 at 9:12 AM After connecting through televideo, patient was verified with two unique identifiers. Patient (or authorized legal sales representative malt liquors) was then informed that this was a [...] that I have reviewed their record in [employer] and presented the opportunity for them to ask any questions regarding the visit today. The patient agreed to participate. Patient location: HOME. I was not in a hospital or clinic location. After connecting through televideo, patient was verified with two unique identifiers. Patient (or authorized legal sales representative malt liquors) was then informed that this was a Telemedicine visit and being conducted confidentially over secure lines. Methods to assure confidentiality were taken. Patient acknowledged consent and understanding of privacy and security of the Telemedicine visit. The patient agreed to participate. CC: Follow up visit Depression, anxiety and insomnia INTERVAL HISTORY: Pt said that she is not doing well since her last visit. She said that she feels depressed, on and off during most days, and has no poor motivation to do anything and feels tired most of the day. Shesaid that he continues to be anxious, nervous, on and off during the day and she has no specific triggers. She said she is able to cope with her mood, mostly, but feels overwhelmed with anxiety at times. She denied any stressors currently. She could not tolerate 30 mg of duloxetine. Her son, Dom reported that she was not sleeping for last few weeks, sleeps about an hours, wakes up and then sleeps again and her sleep was interrupted. Seroquel was not helping her sleep even at 125 mg at nights and one night when they gave her 200 mg one night by accident, she slept well that night. Psychiatric ROS Sleep: Better with lorazepam, 6-7 hours, for the past 4 nights. Appetite: Good Suicidal ideation: Denied Homicidal ideation: Denied Psychosis: None reported Monica: None reported PTSD: None reported Panic attacks: None reported, some anxiety attacks at nights Memory issues: None reported Med Compliance: Good Side effects: None reported D+A Use Alcohol: None Nicotine: None Other substances: None Medical Issues Acute medical issues at present: None Last PCP Visit: 4 weeks ago, no issues MEDICAL REVIEW OF [...] thing in the morning. 90 Tablet 3 hydrOXYzine HCl 25 MG Oral Tablet Take 1 Tablet by mouth 3 times a day as needed for Anxiety. 90 Tablet 0 DULoxetine HCl 30 MG Oral Capsule Delayed Release Particles (Cymbalta) Take 1 Capsule by mouth in the morning. With food in the morning. 30 Capsule 3 QUEtiapine Fumarate 50 MG Oral Tablet (SEROquel) Take 2 Tablets by mouth at bedtime. May also take 0.5 Tablets 2 times a day as needed for Anxiety. 60 Tablet 1 LORazepam 0.5 MG Oral Tablet (Ativan) Take 1 Tablet by mouth daily as needed for Anxiety. 10 Tablet0 No current facility-administered medications for this visit. [...] thing in the morning. 90 Tablet 3 hydrOXYzine HCl 25 MG Oral Tablet Take 1 Tablet by mouth 3 times a day as needed for Anxiety. 90 Tablet 0 DULoxetine HCl 30 MG Oral Capsule Delayed Release Particles (Cymbalta) Take 1 Capsule by mouth in the morning. With food in the morning. 30 Capsule 3 QUEtiapine Fumarate 50 MG Oral Tablet (SEROquel) Take 2 Tablets by mouth at bedtime. May also take 0.5 Tablets 2 times a day as needed for Anxiety. 60 Tablet 1 LORazepam 0.5 MG Oral Tablet (Ativan) Take 1 Tablet by mouth daily as needed for Anxiety. 10 Tablet0 No current facility-administered medications for this visit. [...] volume and normal tone Mood: "anxious" Affect: Euthymic, congruent with mood, normal range, appropriate Thought [...] for higher level of care (Inpatient or [facility]) Consultation with Emergency Services as appropriate If [...] unspecified type G47.00 Plan: Medications: - Continue duloxetine 20 mg Po daily with breakfast. - Increase quetiapine 25 mg PO TID for anxiety. - Taper and D/c Ativan does to increased risk of dependence, tolerance, fall risk and rebound agitation - Continue hydroxyzine 25 mg PO daily PRN anxiety - Increase quetiapine 200 mg PO HS Therapy: None Community Resources: None Lab tests/Medical: None Safety: No risk to self or others Return in: 4 weeks Treatment options and alternatives reviewed with patient [...] to the urgency and severityof symptoms. Lakisha Benjamin Devyn was able to verbalize understanding of the [...] above medication management: 17 minutes Billing code: [id number] and [id number] Leon Mendes MD Psychiatrist, [facility] 04/29/2024 documented in this encounter Plan of Treatment Upcoming Encounters Date Type Department Care Team (Late st Contact Info) Description 06/06/2024 10:30 AM EDT Telemedicine Psychiatry [place] [address] [place] [phone] Leon Mendes MD [address] [facility] [place] [address] 09/30/2024 11:20 AM EST Office Visit Family [place] [address] [place] [phone] Meenu Phelps PA-C [address] [place] [address] 10/02/2024 9:00 AM EST Office Visit Melodie [place] [address] [place] [address] Sonali Lewis CRNP [address] [facility] [place], [place] [phone] Scheduled Procedures Name Priority Associated Diagnoses Date/Ti [...] type documented in this encounter Care Teams Outgoing Inspector Relationship Specialty Start Date End Date Meenu Phelps PA-C [address] [place] [address] PCP - General Physician Barge Worker 03/13/23 documented as of this encounter
--- OUTSIDE RECORDS SUMMARY | 2024-09-26 09:04 | External Medical Summary | Summary of Care ---
Author Name Unknown Organization [facility] Address [address] [place] [address] Phone [phone] Care Team Providers Care Funeral Limousine Driver Name Role Phone Meenu Phelps PA-C Primary Care Provider [phone] Reason for Visit * Reason Onset Date Comments Medication Refill 04/01/2024 Encounter Details Date Type Department Care Team (Late st Contact Info) Description 04/01/2024 Refill [facility] [address] [facility] [place] [address] Meenu Phelps PA-C 21 [place] [address] Generalized anxiety disorder; Primary insomnia; Panic attacks Allergies Active Allergy Reactions Criticality Noted Date Comments Bee Stings Other (Please comment) High 05/01/2002 anaphylaxis in 1990s; subsequent stings without reaction documented as of this encounter (statuses as of 04/02/2024) Medications Medication Sig Dispensed Refills Start Date [...] mouth at bedtime. 30 Tablet 0 03/27/2024 Active LORazepam 0.5 MG Oral Tablet (Ativan)Indications :Generalized anxiety disorder,Primary insomnia,Panic attacks Take 1-2 Tablets by mouth 3 times a day as needed for Anxiety or Insomnia. 30 Tablet 0 04/02/2024 Active LORazepam 0.5 MG Oral Tablet (Ativan)Indications :Generalized anxiety disorder,Primary insomnia,Panic attacks Take 1-2 Tablets by mouth 3 times a day as needed for Anxiety or Insomnia. 30 Tablet 0 03/29/2024 04/01/2024 Discontinued (Refill) documented as of this encounter (statuses as of 04/02/2024) Active Problems Problem Noted Date Diagnosed Date Anxiety disorder 03/26/2024 Polyp, cervix 12/10/2020 IFG (impaired fasting glucose) 12/25/2019 Overview: 11/2019 FBG 103 Dyslipidemia, goal LDL below 130 04/30/2010 Overview: 10 year ASCVD risk 11/18/2016 = 3.9% Hypothyroidism Toxic effect of venom Overview: ICD-10 update of inactive term documented as of this encounter (statuses as of 04/02/2024) Resolved Problems Problem Noted Date Diagnosed Date [...] as of this encounter (statuses as of 04/02/2024) Immunizations Name Administration Dates Next Due COVID-19 [...] the money to buy more. Never true 03/27/20 24 Within the past 12 months, t he food you bought just didn't last and you didn't have money to get more. Never true 03/27/2024 Sex and Gender Information Value Date Recorded Sex Assigned at Not on file Gender Identity Not on file Sexual Orientation Not on file Job Start Date Occupation Industry Not on file Not on file Not on file documented as of this encounter Miscellaneous Notes * Telephone Encounter - Meenu Phelps PA-C - 04/02/2024 4:36 PM EDTSigned Prescriptions: Disp Refills LORazepam 0.5 MG Oral Tablet (Ativan) 30 Tab*0 Sig: Take 1-2 Tablets by mouth 3 times a day as needed for Anxiety or Insomnia.Authorizing Provider: MEENU PHELPS * Telephone Encounter - Meenu Phelps PA-C - 04/02/2024 4:35 PM EDT Refill signed * Telephone Encounter - Nesha Oakes RP - 04/02/2024 4:00 PM EDT Pending Prescriptions: Disp Refills LORazepam 0.5 MG Oral Tablet (Ativan) 30 Tab*0 Sig: Take 1-2 Tablets by mouth 3 times a day as needed for Anxiety or Insomnia. * Telephone Encounter - Nesha Oakes RP - 04/02/2024 3:59 PM EDT I have reviewed the patients controlled substance dispensing history in the Prescription Drug Monitoring Program in compliance with the [facility] regulations before prescribing a controlled substance. PDMP checked on 04/02/2024. Pending Prescriptions: Disp Refills LORazepam 0.5 MG Oral Tablet (Ativan) 30 Tab*0 Sig: Take 1-2 Tablets by mouth 3 times a day as needed for Anxiety or Insomnia. Last Visit: 03/27/2024 (in office), Visit date not found (telemedicine) Next Visit: 09/30/2024 Date medication was last filled: 03/29/24 Date medication is due for refill: 04/02/24 Pharmacy: [facility] [address], [place]ED[place] Is this request for a controlled substance? Yes and Urine Drug Screen was completed Toxicology results: Results for orders placed or performed during the hospital encounter of 03/26/24 TOXICOLOGY, URINE SCREEN W/O CONFIRMATION Result Value Amphetamines Screen, U Negative Benzodiazepines Screen, U Negative Cannabinoids Screen, U Negative Cocaine Metabolite Screen, U Negative Fentanyl Screen, U Negative Hydrocodone Screen, U Negative Methadone Metabolite Screen, U Negative Morphine/Codeine Screen, U Negative Oxycodone Screen, U Negative Narrative Cutoff Concentrations: Drug Level Amphetamines 500 ng/mL Benzodiazepines 100 ng/mL Cannabinoids 50 ng/mL Cocaine Metabolite 150 ng/mL Fentanyl 1 ng/mL Hydrocodone / Hydromorphone 300 ng/mL Methadone Metabolite 100 ng/mL Morphine / Codeine 300 ng/mL Oxycodone / Oxymorphone 100 ng/mL Screening results are presumptive and can only be used for medical purposes. Confirmatory testing is available upon request. Please approve if appropriate. Thank You Gissell BrasherD Clinical Pharmacist [facility] ([facility]) (formerly Telepharmacy) [phone] / [phone] 04/02/2024, 4:00 PM documented in this encounter Plan of Treatment Upcoming Encounters Date Type Department Care Team (Late st Contact Info) Description 04/04/2024 10:00 AM EDT Scheduled Telephone Ancillary 1st Floor, [place] [address] Melodie Nurse Follow Up Phone Call Schedule [place] [phone] 04/05/2024 11:00 AM EDT Telemedicine Psychiatry, [place] [address] [facility] [place] [address] Leon Mendes MD [address] [facility] [place] [address] 05/22/2024 9:00 AM EDT [address]ment [address], [address] [address] 09/30/2024 11:20 AM EST Office Visit Family [facility], [place] [address] [place] [phone] Meenu Phelps PA-C 21 [place] [address] 10/02/2024 9:00 AM EST Office Visit Psychiatry, [place] [address] [place] [address] Sonali Lewis CRNP 200 [facility] [place] [address] Scheduled Procedures Name Priority Associated Diagnoses Date/Ti [...] Persistent disorder of initiating or maintaining sleep Panic attacks Panic disorder without agoraphobia documented in this encounter Care Teams Funeral Limousine Driver Relationship Specialty Start Date End Date Meenu Phelps PA-C [address] [place] [phone] PCP - General Physician Consultant 03/13/23 documented as of this encounter
--- OUTSIDE RECORDS SUMMARY | 2024-09-26 09:04 | External Medical Summary | Summary of Care ---
Author Name Unknown Organization [facility] Address [address] [place] [address] Phone [phone] Care Team Providers Care Graduate Teaching Assistant Name Role Phone Meenu Phelps PA-C Primary Care Provider [phone] Reason for Referral * Precert (Within 10 days (routine)) - Pending Review Specialty Diagnoses / Procedures Referred By Tram sorto Referred To Contact Radiology Diagnoses Panic attacks Personality change Insomnia, unspecified type Memory changes Decreased social interaction Procedures MRI BRAIN W WO CONTRAST Meenu Phelps PA-C [address] [place] [id number] Referral ID Status Reason Start Date Expiration Date V isits Requested Visits Authorized [id number] Pending Review 04/02/2024 999 999 Reason for Visit * Reason Onset Date Comments Advice 04/02/2024 Encounter Details Date Type Department Care Team (Late st Contact Info) Description 04/02/2024 [facility] [address] [phone] Meenu Phelps PA-C [address] [place] [phone] Advice Allergies Active Allergy Reactions Criticality Noted Date Comments Bee Stings Other (Please comment) High 05/01/2002 anaphylaxis in 1990s; subsequent stings without reaction documented as of this encounter (statuses as of 04/03/2024) Medications Medication Sig Dispensed Refills Start Date [...] 25 MG Oral Tablet (SEROquel)Indications: Generalized anxiety disorder,Primary insomnia Take 1 Tablet by mouth at bedtime. 30 Tablet 0 03/27/2024 Active documented as of this encounter (statuses as of 04/03/2024) Active Problems Problem Noted Date Diagnosed Date Anxiety disorder 03/26/2024 Polyp, cervix 12/10/2020 IFG (impaired fasting glucose) 12/25/2019 Overview: 11/2019 FBG 103 Dyslipidemia, goal LDL below 130 04/30/2010 Overview: 10 year ASCVD risk 11/18/2016 = 3.9% Hypothyroidism Toxic effect of venom Overview: ICD-10 update of inactive term documented as of this encounter (statuses as of 04/03/2024) Resolved Problems Problem Noted Date Diagnosed Date [...] as of this encounter (statuses as of 04/03/2024) Immunizations Name Administration Dates Next Due COVID-19 [...] encounter Miscellaneous Notes * Telephone Encounter - Catrachita Bedoya OSA - 04/03/2024 8:03 AM EDT LMOM for pt to call to schedule. * Telephone Encounter - Radha Nunn LPN - 04/02/2024 3:26 PM EDT Pt's son Dom informed, pt has never worked around metal or grinding, has no implants, is not claustrophobic Pt's son wants to make sure mri is approved by ins * Telephone Encounter - Meenu Phelps PA-C - 04/02/2024 3:14 PM EDT I have signed order for brain MRI. I think at this point, this is a good idea to do. Please notify pt and her son Dom. * Telephone Encounter - Farida Casey OSA - 04/02/2024 7:44 AM EDT Call from son to request a brain MRI with the new onset of symptoms she has. She has obsessive compulsive thoughts and has trouble focusing on tasks that she used to be able to do. Recent hospital visit which they blamed the symptoms on psychological. Son requesting MRI to be sure nothing neurological is going on. documented in this encounter Plan of Treatment Upcoming Encounters Date Type Department Care Team (Late st Contact Info) Description 04/04/2024 10:00 AM EDT Scheduled Telephone Ancillary 1st [facility], [place] [facility] [place] [id number] Nurse Melodie Follow Up Phone Call Schedule [address] [place] [id number] 04/05/2024 11:00 AM EDT Telemedicine Psychiatry, [place] [address] [place] [address] Leon Mendes MD [address] [place] [address] 04/09/2024 9:45 AM EDT Appointment Radiology, [address] [place] [phone] 04/16/2024 7:00 PM EDT App[address]ment Radiology, [address] [address] 05/22/2024 9:00 AM EDT Appointment Cardiac Studies, [address] [place] [address] 09/30/2024 11:20 AM EST Office Visit Family Practice, [place] [address] [phone] Meenu Phelps PA-C [address] [address] 10/02/2024 9:00 AM EST Office Visit Psychiatry, [place] [address] [address] Sonali Lewis CRNP [address] [place] [address] Scheduled Orders Name Type Priority Associated Diagnoses Orde r Schedule MRI BRAIN W WO CONTRAST Medical Imaging Routine Panic attacks Personality change Insomnia, unspecified type Memory changes Decreased social interaction Expected: 04/02/2024, Expires: 05/03/2025 Scheduled Procedures Name Priority Associated Diagnoses Date/Ti [...] as of this encounter Visit Diagnoses Diagnosis Panic attacks- Primary Panic disorder without agoraphobia Personality change Personality change due to conditions classified elsewhere Insomnia, unspecified type Memory changes Memory loss Decreased social interaction Other general symptoms documented in this encounter Care Teams Graduate Teaching Assistant Relationship Specialty Start Date End Date Meenu Phelps PA-C [address] [id number] PCP - General Physician Drop Wire Builder 03/13/23 documented as of this encounter
--- OUTSIDE RECORDS SUMMARY | 2024-09-26 09:04 | External Medical Summary | Summary of Care ---
Author Name Unknown Organization [facility] Address [address] [place] [address] Phone [phone] Care Team Providers Care Floor Director Name Role Phone Meenu Phelps PA-C Primary Care Provider [phone] Reason for Referral * Precert (Within 10 days (routine)) - Pending Review Specialty Diagnoses / Procedures Referred By Tram sorto Referred To Contact Radiology Diagnoses Panic attacks Personality change Insomnia, unspecified type Memory changes Decreased social interaction Procedures MRI BRAIN W WO CONTRAST Meenu Phelps PA-C [address] [place] [id number] Referral ID Status Reason Start Date Expiration Date V isits Requested Visits Authorized [id number] Pending Review 04/02/2024 999 999 Reason for Visit * Reason Onset Date Comments Advice 04/02/2024 Encounter Details Date Type Department Care Team (Late st Contact Info) Description 04/02/2024 [facility] [address] [phone] Meenu Phelps PA-C [address] [place] [phone] Advice Allergies Active Allergy Reactions Criticality Noted [...] 10:00 AM EDT Scheduled Telephone Ancillary 1st [facility], [place] 21 [facility] [place] [address] Nurse Melodie Follow Up Phone Call Schedule [address] [place] [address] 04/05/2024 11:00 AM EDT Telemedicine Psychiatry, [place] [address] [place] [address] Leon Mendes MD [address] [place] [phone] 05/22/2024 9:00 AM EDT Appointment Cardiac Studies, [address] [place] [address] 09/30/2024 11:20 AM EST Office Visit Family Practice, [place] [address] [phone] Meenu Phelps PA-C [address] [place] [address] 10/02/2024 9:00 AM EST Office Visit Psychiatry, [place] [address] [address] Sonali Lewis CRNP [address] [facility] [place] [address] Scheduled Orders Name Type Priority Associated Diagnoses [...] (2 of 2) 05/08/2023 03/13/2023 COVID-19 Vaccine ( season) 2023 03/05/2021, 02/05/2021 Mammogram 09/20/2023 09/20/2022, [...] symptoms documented in this encounter Care Teams Floor Director Relationship Specialty Start Date End Date Meenu Phelps PA-C 21 [facility] [place] [phone] PCP - General Physician Macadam Raker 03/13/23 documented as of this encounter
[2024-09-26] MEDS: busPIRone 5 MG TAB PO SCH (09:26)
[2024-09-26] MEDS: SERTRALINE HCL 50 MG TABLET PO SCH (09:26)
[2024-09-26] MEDS: LEVOTHYROXINE SODIUM 88 MCG TABLET PO SCH (09:26)
[2024-09-26] MEDS: DOCUSATE SODIUM 100 MG CAP PO SCH (09:28)
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
[2024-09-26] MEDS ORDERED: QUEtiapine FUMARATE 200 MG TAB PO SCH (21:00)
[2024-09-26] MEDS: LORazepam 1 MG TAB PO SCH (21:29)
[2024-09-26] MEDS: QUEtiapine FUMARATE 200 MG TAB PO SCH (21:29)
[2024-09-27 08:09] LABS: Chol HDL Ratio 2.6 (0-5)
[2024-09-27] MEDS: SERTRALINE HCL 100 MG TABLET PO SCH (08:45)
[2024-09-27 09:01] LABS: Estimated Average Glucose 123 mg/dl; Hemoglobin A1C 5.9 % (4.5-5.6)
[2024-09-27] MEDS: CHOLECALCIFEROL 25 MCG (1000 UNITS) TAB PO SCH (13:08)
--- NOTE | 2024-09-27 14:28 | Psychiatric Progress Note ---
Date of Service September 27, 2024 Impression / Recommendations Impression Lakisha Shepard is a 73 y/o white female, domiciled by self, retired who presents with suicide gesture with recent ingestion of 5 tabs of Buspar in the context of escalating anxiety and depression. Outpatient psychiatrist and family recommended inpatient for evaluation and safety. She was admitted on 09/26/24 00:22 on a 201 voluntary commitment for suicidal ideation. Presentation consistent with major depressive disorder, recurrent, severe and generalized anxiety disorder. Patient has not had a complete trial of an SSRI antidepressant and was recently started on sertraline 2 weeks ago. A: Patient presents depressed and anxious affect with self-esteem, memory, concentration, energy complaints. Continues to present anxious ruminations. She scored positively on the MONICA-7 anxiety scale with a score of 16 indicative of severe anxiety and dysfunction rated as "very difficult". Feels nervous anxious, has trouble relaxing, very restless nearly every day. Labs resulted with stable hemoglobin A1c, lipid panel, B12 however insufficient vitamin D at 29.7. Plan to start vitamin D supplementation. Patient's antidepressant was recently increased in dose and awaiting response; this is patient's first trial of an SSRI antidepressant. Patient educated about her symptoms and diagnoses and encouraged to engage in outpatient counseling. Overall, I spent a total of 30 minutes with this case including review of chart records, nursing report, review of lab work, direct evaluation of the patient at bedside, counseling the patient, multidisciplinary team meeting, orders, and documentation in the electronic health record. (1) Major depressive disorder, recurrent episode, severe: (2) Generalized anxiety disorder: (3) Passive suicidal ideations: Plan 09/27/2024: Start vitamin D 2000 units daily. Continue other medications and treatment plan. 09/26/2024: The patient was admitted to the [facility] ([facility]) on q15 min checks (behavioral with suicide precautions) for safety. The patient will participate in group, recreational, and milieu therapies and will be offered additional individual and family sessions as clinically ap propriate. -Increase Sertraline to 100mg daily -Lorazepam 1mg HS -Continue home Quetiapine 200mg HS -Continue Buspirone 20mg BID -Questionnaires: MONICA-7 -Labs: Vit D, Vit B12, fasting lipids, HgbA1C Inventory Assets Strengths: independent, problem solving Needs: improved insight, social supports Suicide Risk Level Suicide Risk Level: Moderate (q15 min suicide checks) Risk Factors Assessment Male: No : Yes Do You Have Access To A Gun?: No Health Problems: No Mental Health Diagnoses: Yes Substance Use Disorders: No Previous Attempt: Yes Family History of Suicide: No Previous Psychiatric Hospitalization: No Hopelessness: Yes Protective Factors Assessment Temple Beliefs: Yes : No Responsible for Young Children: No Employed: No Stable Relationships: No Supportive Family: Yes Good Rapport with Provider: No Absence of Any Risk Factors Above: No Interval History Identifying Information Lakisha Shepard is a 73 y/o white female, domiciled by self, retired who presents with suicide gesture with recent ingestion of 5 tabs of Buspar in the context of escalating anxiety and depression. Outpatient psychiatrist and family recommended inpatient for evaluation and safety. She was admitted on 09/26/24 00:22 on a 201 voluntary commitment for suicidal ideation. Chief Complaint "not getting better" Review of Systems Sleep Information Total Hours of Sleep: 6.5 Sleep Comments: Admitted overnight Meal Information Percent Meal Consumed - Breakfast: 90 Percent Meal Consumed - Lunch: 100 Percent Meal Consumed - Dinner: 100 Subjective Subjective Patient was seen & assessed and interval progress reviewed with treatment team nursing and social work Overnight slept 6.5 hours and on disrupted. Reports feeling more rested. Complains of self-esteem issues and feeling hopeless. Says that she does not feel well. Says sometimes she feels like she should not get better. Complains of associated memory and concentration impairments. She is asking medications and we had a discussion. Complains of passive SI with no active plans. Physical Exam Mental Examination Appearance: Well Groomed Eye Contact: Maintains Eye Contact Motor Behavior: Unremarkable Speech: Normal Mood: Anxious and Irritable Affect: Congruent Thought Process: Intact and Linear Thought Content: Intact Hallucinations: None Insight: Poor Judgement: Poor (to limited) Vital Signs (Past 24 Hours) Last Vital Signs Temp 36.7 C 09/27/24 06:45 Pulse 74 09/27/24 06:45 Resp 16 09/27/24 06:45 BP 114/76 09/27/24 06:45 Pulse Ox 95 09/26/24 02:03 O2 Del Method Room Air 09/26/24 02:03 Results & Data (U) Laboratory Results Laboratory Results - last 24 hr 09/27/24 07:09 Estimat Average Glucose 123 Hemoglobin A1c 5.9 H Triglycerides 48 Cholesterol 169 LDL Cholesterol, Calc 94 VLDL Cholesterol, Calc 10 HDL Cholesterol 65 Cholesterol/HDL Ratio 2.6 Vitamin B12 677 25-OH Vitamin D Total 29.7 L Current Inpatient Medications Current Inpatient Medications: Current Inpatient Medications Acetaminophen (Acetaminophen 325 Mg Tab) 650 mg PO Q4H PRN PRN Reason: Headache or Minor Fever Stop: 10/26/24 01:09 Al Hydrox/Mg Hydrox/Simethicone (Aluminum/Magnesium Susp 30 Ml Udc) 30 ml PO Q4H PRN PRN Reason: GI Upset Stop: 10/26/24 01:09 Bismuth Subsalicylate (Bismuth Subsalicylate 262 Mg Chew) 2 tab PO Q30M PRN PRN Reason: Loose Stool/Diarrhea Stop: 10/26/24 01:09 Buspirone HCl (Buspirone 5 Mg Tab) 20 mg PO BID ZULMA Stop: 10/26/24 08:59 Last Admin: 09/27/24 08:44 Dose: 20 mg Docusate Sodium (Docusate Sodium 100 Mg Cap) 100 mg PO BID ZULMA Stop: 10/26/24 08:59 Last Admin: 09/27/24 08:44 Dose: 100 mg Hydroxyzine HCl (Hydroxyzine Hcl 25 Mg Tab) 50 mg PO HSZ PRN PRN Reason: Insomnia Stop: 10/26/24 01:09 Hydroxyzine HCl (Hydroxyzine Hcl 25 Mg Tab) 25 mg PO Q4H PRN PRN Reason: Anxiety Stop: 10/26/24 01:09 Levothyroxine Sodium (Levothyroxine Sodium 88 Mcg Tablet) 88 mcg PO DAILYBB ZULMA Stop: 10/26/24 07:59 Last Admin: 09/27/24 08:05 Dose: 88 mcg Lorazepam (Lorazepam 0.5 Mg Tab) 0.5 mg PO Q8H PRN PRN Reason: Anxiety Stop: 10/26/24 01:14 Lorazepam (Lorazepam 1 Mg Tab) 1 mg PO HS ZULMA Stop: 10/26/24 21:59 Last Admin: 09/26/24 21:29 Dose: 1 mg Magnesium Hydroxide (Magnesium Hydroxide Susp 30 Ml Udc) 30 ml PO DAILY PRN PRN Reason: Constipation Stop: 10/26/24 01:09 Quetiapine Fumarate (Quetiapine Fumarate 200 Mg Tab) 200 mg PO HS ZULMA Stop: 10/26/24 21:59 Last Admin: 09/26/24 21:29 Dose: 200 mg Sertraline HCl (Sertraline Hcl 100 Mg Tablet) 100 mg PO QAM ZULMA Stop: 10/27/24 08:59 Last Admin: 09/27/24 08:45 Dose: 100 mg Sodium Chloride (Sodium Chloride 0.65% Na Soln 45 Ml ([place])) 1 - 2 sprays NA PRN PRN PRN Reason: Nasal Dryness/Congestion Stop: 10/26/24 01:09 Vitamin D (Cholecalciferol 25 Mcg (1000 Units) Tab) 25 mcg PO QAM ZULMA Stop: 10/27/24 11:44 Last Admin: 09/27/24 13:08 Dose: 25 mcg Mental Health & Subst Abuse Tx Psychiatrist Name of Psychiatrist: Autumn Monson @ [facility] Psychiatrist's Date Of Appointment With Psychiatric Provider: 10/09/24 Time of Appointment with Psychiatrist: 8:30AM Psychiatric Appointment Comment: *Requested therapy services; Autumn is aware of hospitalization & request Therapist Name of Therapist: On therapy waitlist at [facility] Therapist's Phone Number: . Date of Therapist Appointment: . Time of Therapist Appointment: . Therapy Appointment Comment: Declines referral to [facility] Loss Prevention Consultant Name of Loss Prevention Consultant: RAJWINDER Leonardo Loss Prevention Consultant @ [employer] Phone Number for Loss Prevention Consultant: [phone] Date of Appointment with Loss Prevention Consultant: 10/01/24 Time of Appointment with Loss Prevention Consultant: 10:00AM Case Management Appointment Comment: Jeannine will call you around 10am on 10/01/24 Post Discharge Appointments Primary Care Physician Name Of Family Doctor/PCP: Dr. Dominguez Primary [facility] Date of Future Appointment with PCP: 10/01/24 Time of Appointment with PCP: 1:20pm
--- NOTE | 2024-09-28 09:45 | Psychiatric Progress Note ---
Date of Service September 28, 2024 Impression / Recommendations Impression Lakisha Shepard is a 73 y/o white female, domiciled by self, retired who presents with suicide gesture with recent ingestion of 5 tabs of Buspar in the context of escalating anxiety and depression. Outpatient psychiatrist and family recommended inpatient for evaluation and safety. She was admitted on 09/26/24 00:22 on a 201 voluntary commitment for suicidal ideation. Presentation consistent with major depressive disorder, recurrent, severe and generalized anxiety disorder. Patient has not had a complete trial of an SSRI antidepressant and was recently started on sertraline 2 weeks ago. A: Ongoing depression and anxiety with ruminations with concerns about financial impact of hospitalization but also feels unable to function without further medication adjustments and inpatient support at this time. She consents to discontinuing Seroquel given limited benefit and starting abilify for depression augmentation with prominent ruminative anxiety. Discussed medication treatment options in detail. Discussed risks, benefits and alternatives. Reviewed side effects including but not limited to: movement (TD, NMS), cardiac (QTc prolongation), and metabolic (stroke, insulin resistance) and necessity for fasting lipid and glucose labwork (done this admission and re-reviewed, HbA1c elevated, fasting lipids normal) and AIMS done with score of 0. Overall, I spent a total of 45 minutes on this case including meeting with the patient, reviewing the chart, nursing report, multidisciplinary team meeting, orders, and documentation. (1) Major depressive disorder, recurrent episode, severe: (2) Generalized anxiety disorder: Plan 09/28/2024: -Discontinue Seroquel -Start Abilify 5mg daily 09/27/2024: Start vitamin D 2000 units daily. Continue other medications and treatment plan. 09/26/2024: The patient was admitted to the [facility] ([facility] mental health unit) on q15 min checks (behavioral with suicide precautions) for safety. The patient will participate in group, recreational, and milieu therapies and will be offered additional individual and family sessions as clinically appropriate. -Increase Sertraline to 100mg daily -Lorazepam 1mg HS -Continue home Quetiapine 200mg HS -Continue Buspirone 20mg BID -Questionnaires: MONICA-7 -Labs: Vit D, Vit B12, fasting lipids, HgbA1C Inventory Assets Strengths: independent, resilient Needs: improved insight, social supports Suicide Risk Level Suicide Risk Level: Moderate (q15 min suicide checks) (intermittent SI and depression with anxiety but feels safe in the hospital and able to ask for support) Risk Factors Assessment Male: No : Yes Do You Have Access To A Gun?: No Health Problems: No Mental Health Diagnoses: Yes Substance Use Disorders: No Previous Attempt: Yes Family History of Suicide: No Previous Psychiatric Hospitalization: No Hopelessness: Yes Protective Factors Assessment Anabaptism Beliefs: Yes : No Responsible for Young Children: No Employed: No Stable Relationships: No Supportive Family: Yes Good Rapport with Provider: No Absence of Any Risk Factors Above: No Interval History Identifying Information Lakisha Shepard is a 73 y/o white female, domiciled by self, retired who presents with suicide gesture with recent ingestion of 5 tabs of Buspar in the context of escalating anxiety and depression. Outpatient psychiatrist and family recommended inpatient for evaluation and safety. She was admitted on 09/26/24 00:22 on a 201 voluntary commitment for suicidal ideation. Chief Complaint "I don't understand, I'm concerned about all this is all going to end". Review of Systems Sleep Information Total Hours of Sleep: 6.45 Sleep Comments: HS Ativan and Seroquel Meal Information Percent Meal Consumed - Breakfast: 90 Percent Meal Consumed - Lunch: 100 Percent Meal Consumed - Dinner: 75 Subjective Subjective Patient was seen & assessed and interval progress reviewed with treatment team nursing and social work. Remains ruminative and hopelessness. Remains quite resistant to additional outpatient supports/resources. Today reports ongoing depression and confusion and "very nervous". Reviewed her medications with her, she reports still feeling like "I don't even know". Asked about target symptoms she identifies "feeling like myself again" and "talking to people more" and "less anxiety". Doesn't find Seroquel helpful. Has been sleeping better with ativan which she is glad about. Reports some SI intermittently. Physical Exam Psychiatric Orientation: alert and oriented x 3 Apperance: appropriately dressed Eye Contact: + fair eye contact Motor Behavior: no abnormal motor movements Speech: normal rate/rhythm/volume of speech Affect: + anxious affect and + irritable affect Mood: + depressed mood, + anxious mood and + irritable mood Thought Process: + circumstantial thought process and + perseveration Thought Content: + preoccupation Suicidal Thoughts: denies suicidal plan; + reports suicidal thoughts Homicidal Thoughts: denies homicidal thoughts Hallucinations: no auditory hallucinations and no visual hallucinations Cognition: remote memory grossly intact and language grossly intact; + recent memory not intact and + attention not intact Insight: + limited insight Judgment: + limited judgement Vital Signs (Past 24 Hours) Last Vital Signs Temp 36.6 C 09/28/24 06:39 Pulse 67 09/28/24 06:39 Resp 16 09/28/24 06:39 BP 118/72 09/28/24 06:40 Pulse Ox 94 09/28/24 06:39 O2 Del Method Room Air 09/28/24 06:39 Results & Data ([facility]) Current Inpatient Medications Current Inpatient Medications: Current Inpatient Medications Acetaminophen (Acetaminophen 325 Mg Tab) 650 mg PO Q4H PRN PRN Reason: Headache or Minor Fever Stop: 10/26/24 01:09 Al Hydrox/Mg Hydrox/Simethicone (Aluminum/Magnesium Susp 30 Ml Udc) 30 ml PO Q4H PRN PRN Reason: GI Upset Stop: 10/26/24 01:09 Bismuth Subsalicylate (Bismuth Subsalicylate 262 Mg Chew) 2 tab PO Q30M PRN PRN Reason: Loose Stool/Diarrhea Stop: 10/26/24 01:09 Buspirone HCl (Buspirone 5 Mg Tab) 20 mg PO BID [facility] Stop: 10/26/24 08:59 Last Admin: 09/28/24 09:32 Dose: 20 mg Docusate Sodium (Docusate Sodium 100 Mg Cap) 100 mg PO BID ZULMA Stop: 10/26/24 08:59 Last Admin: 09/28/24 09:32 Dose: 100 mg Hydroxyzine HCl (Hydroxyzine Hcl 25 Mg Tab) 50 mg PO HSZ PRN PRN Reason: Insomnia Stop: 10/26/24 01:09 Hydroxyzine HCl (Hydroxyzine Hcl 25 Mg Tab) 25 mg PO Q4H PRN PRN Reason: Anxiety Stop: 10/26/24 01:09 Levothyroxine Sodium (Levothyroxine Sodium 88 Mcg Tablet) 88 mcg PO DAILYBB ZULMA Stop: 10/26/24 07:59 Last Admin: 09/28/24 09:32 Dose: 88 mcg Lorazepam (Lorazepam 0.5 Mg Tab) 0.5 mg PO Q8H PRN PRN Reason: Anxiety Stop: 10/26/24 01:14 Lorazepam (Lorazepam 1 Mg Tab) 1 mg PO HS ZULMA Stop: 10/26/24 21:59 Last Admin: 09/27/24 21:40 Dose: 1 mg Magnesium Hydroxide (Magnesium Hydroxide Susp 30 Ml Udc) 30 ml PO DAILY PRN PRN Reason: Constipation Stop: 10/26/24 01:09 Quetiapine Fumarate (Quetiapine Fumarate 200 Mg Tab) 200 mg PO HS ZULMA Stop: 10/26/24 21:59 Last Admin: 09/27/24 21:41 Dose: 200 mg Sertraline HCl (Sertraline Hcl 100 Mg Tablet) 100 mg PO QAM ZULMA Stop: 10/27/24 08:59 Last Admin: 09/28/24 09:32 Dose: 100 mg Sodium Chloride (Sodium Chloride 0.65% Na Soln 45 Ml ([place])) 1 - 2 sprays NA PRN PRN PRN Reason: Nasal Dryness/Congestion Stop: 10/26/24 01:09 Vitamin D (Cholecalciferol 25 Mcg (1000 Units) Tab) 25 mcg PO QAM ZULMA Stop: 10/27/24 11:44 Last Admin: 09/28/24 09:32 Dose: 25 mcg Mental Health & Subst Abuse Tx Psychiatrist Name of Psychiatrist: Autumn Monson @ [facility] Psychiatrist's Date Of Appointment With Psychiatric Provider: 10/09/24 Time of Appointment with Psychiatrist: 8:30AM Psychiatric Appointment Comment: *Requested therapy services; Autumn is aware of hospitalization & request Therapist Name of Therapist: On therapy waitlist at [facility] Therapist's Phone Number: . Date of Therapist Appointment: . Time of Therapist Appointment: . Therapy Appointment Comment: Declines referral to [facility] Hooker Machine Tender Name of Hooker Machine Tender: RAJWINDER Leonardo Hooker Machine Tender @ [employer] Phone Number for Hooker Machine Tender: [phone] Date of Appointment with Hooker Machine Tender: 10/01/24 Time of Appointment with Hooker Machine Tender: 10:00AM Case Management Appointment Comment: Jeannine will call you around 10am on 10/01/24 Post Discharge Appointments Primary Care Physician Name Of Family Doctor/PCP: Dr. Dominguez Primary Care Date of Future Appointment with PCP: 10/01/24 Time of Appointment with PCP: 1:20pm
[2024-09-28] MEDS: ARIPiprazole 5 MG TAB PO SCH (13:04)
[2024-09-29] MEDS: hydrOXYzine HCl 25 MG TAB PO PRN (00:04)
[2024-09-29] MEDS: LORazepam 0.5 MG TAB PO PRN (01:46)
--- NOTE | 2024-09-29 09:38 | Psychiatric Progress Note ---
Date of Service September 29, 2024 Impression / Recommendations Impression Lakisha Shepard is a 73 y/o white female, domiciled by self, retired who presents with suicide gesture with recent ingestion of 5 tabs of Buspar in the context of escalating anxiety and depression. Outpatient psychiatrist and family recommended inpatient for evaluation and safety. She was admitted on 09/26/24 00:22 on a 201 voluntary commitment for suicidal ideation. Presentation consistent with major depressive disorder, recurrent, severe and generalized anxiety disorder. Patient has not had a complete trial of an SSRI antidepressant and was recently started on sertraline 2 weeks ago. A: Ongoing depression and anxiety with ruminations with concerns about financial impact of hospitalization/medications and poor sleep. May be having some initial benefit from abilify dose. She prefers not to start metformin at this time for elevated HbA1c, discussed dietary changes, she declines prevention coordinator consult during this admission or diet change, plans to reduce her dessert and processed foods consumption. Discussed medication treatment options in detail. Discussed risks, benefits and alternatives. She consented to starting mirtazapine for sleep, depression, and anxiety and tapering Buspar as she has found this ineffective. Reviewed side effects including but not limited to: sedation, increased appetite. Overall, I spent a total of 40 minutes on this case including meeting with the patient, reviewing the chart, nursing report, multidisciplinary team meeting, orders, and documentation. (1) Major depressive disorder, recurrent episode, severe: (2) Generalized anxiety disorder: Plan : -Start mirtazapine 15mg HS -Have Seroquel 200mg HS prn as back up if other sleep aids and prns are ineffective, reviewed goal of avoiding use if possible given increased risk of side effects with dual anti-dopaminergic medications and concern this may be contributing to elevated HbA1c. -Reduce Buspar to 10mg BID 09/28/2024: -Discontinue Seroquel -Start Abilify 5mg daily 09/27/2024: Start vitamin D 2000 units daily. Continue other medications and treatment plan. 09/26/2024: The patient was admitted to the [facility] ([facility]) on q15 min checks (behavioral with suicide precautions) for safety. The patient will participate in group, recreational, and milieu therapies and will be offered additional individual and family sessions as clinically appropriate. -Increase Sertraline to 100mg daily -Lorazepam 1mg HS -Continue home Quetiapine 200mg HS -Continue Buspirone 20mg BID -Questionnaires: MONICA-7 -Labs: Vit D, Vit B12, fasting lipids, HgbA1C Inventory Assets Strengths: independent, resilient Needs: improved insight, social supports Suicide Risk Level Suicide Risk Level: Moderate (q15 min suicide checks) (intermittent SI and dep ression with anxiety but feels safe in the hospital and able to ask for support) Risk Factors Assessment Male: No : Yes Do You Have Access To A Gun?: No Health Problems: No Mental Health Diagnoses: Yes Substance Use Disorders: No Previous Attempt: Yes Family History of Suicide: No Previous Psychiatric Hospitalization: No Hopelessness: Yes Protective Factors Assessment Jain Beliefs: Yes : No Responsible for Young Children: No Employed: No Stable Relationships: No Supportive Family: Yes Good Rapport with Provider: No Absence of Any Risk Factors Above: No Interval History Identifying Information Lakisha Shepard is a 73 y/o white female, domiciled by self, retired who presents with suicide gesture with recent ingestion of 5 tabs of Buspar in the context of escalating anxiety and depression. Outpatient psychiatrist and family gomez mmended inpatient for evaluation and safety. She was admitted on 09/26/24 00:22 on a 201 voluntary commitment for suicidal ideation. Chief Complaint "Very tired". Review of Systems Sleep Information Total Hours of Sleep: 3.30 Sleep Comments: Pt had PRN dose of Ativan 0.5mg with 2 dose of PRN Vistaril Meal Information Percent Meal Consumed - Breakfast: 90 Percent Meal Consumed - Lunch: 100 Percent Meal Consumed - Dinner: 85 Subjective Subjective Patient was seen & assessed and interval progress reviewed with treatment team nursing and social work. Last evening reported mood as "satisfied". Slept very poorly last night, only 3.5 hours despite multiple prns. Today ongoing fatigue. Does feel like her anxiety is a little less today after initial dose of abilify. Remains concerned about potential cost of medications after discharge and costs of hospitalization, despite discussions about this. She requests to stop Buspar as "it's never helped me" and is concerned about being on too many medications due to cost. Physical Exam Psychiatric Orientation: alert and oriented x 3 Apperance: appropriately dressed Eye Contact: + fair eye contact Motor Behavior: no abnormal motor movements Speech: normal rate/rhythm/volume of speech Affect: + anxious affect and + flat affect Mood: + depressed mood and + anxious mood Thought Process: + circumstantial thought process and + perseveration Thought Content: + preoccupation Suicidal Thoughts: denies suicidal plan; + reports suicidal thoughts Homicidal Thoughts: denies homicidal thoughts Hallucinations: no auditory hallucinations and no visual hallucinations Cognition: remote memory grossly intact and language grossly intact; + recent memory not intact and + attention not intact Insight: + limited insight Judgment: + limited judgement Vital Signs (Past 24 Hours) Last Vital Signs Temp 36.5 C 09/29/24 02:39 Pulse 67 09/29/24 02:39 Resp 18 09/29/24 02:39 BP 136/85 09/29/24 02:39 Pulse Ox 96 09/29/24 02:39 O2 Del Method Room Air 09/29/24 02:39 Results & Data ([facility]) Current Inpatient Medications Current Inpatient Medications: Current Inpatient Medications Acetaminophen (Acetaminophen 325 Mg Tab) 650 mg PO Q4H PRN PRN Reason: Headache or Minor Fever Stop: 10/26/24 01:09 Al Hydrox/Mg Hydrox/Simethicone (Aluminum/Magnesium Susp 30 Ml Udc) 30 ml PO Q4H PRN PRN Reason: GI Upset Stop: 10/26/24 01:09 Aripiprazole (Aripiprazole 5 Mg Tab) 5 mg PO QAM [facility] Stop: 10/28/24 12:44 Last Admin: 09/29/24 09:07 Dose: 5 mg Bismuth Subsalicylate (Bismuth Subsalicylate 262 Mg Chew) 2 tab PO Q30M PRN PRN Reason: Loose Stool/Diarrhea Stop: 10/26/24 01:09 Buspirone HCl (Buspirone 5 Mg Tab) 20 mg PO BID [facility] Stop: 10/26/24 08:59 Last Admin: 09/29/24 09:07 Dose: 20 mg Docusate Sodium (Docusate Sodium 100 Mg Cap) 100 mg PO BID [facility] Stop: 10/26/24 08:59 Last Admin: 09/29/24 09:07 Dose: 100 mg Hydroxyzine HCl (Hydroxyzine Hcl 25 Mg Tab) 50 mg PO HSZ PRN PRN Reason: Insomnia Stop: 10/26/24 01:09 Last Admin: 09/29/24 02:36 Dose: 50 mg Hydroxyzine HCl (Hydroxyzine Hcl 25 Mg Tab) 25 mg PO Q4H PRN PRN Reason: Anxiety Stop: 10/26/24 01:09 Levothyroxine Sodium (Levothyroxine Sodium 88 Mcg Tablet) 88 mcg PO DAILYBB [facility] Stop: 10/26/24 07:59 Last Admin: 09/29/24 09:06 Dose: 88 mcg Lorazepam (Lorazepam 0.5 Mg Tab) 0.5 mg PO Q8H PRN PRN Reason: Anxiety Stop: 10/26/24 01:14 Last Admin: 09/29/24 01:46 Dose: 0.5 mg Lorazepam (Lorazepam 1 Mg Tab) 1 mg PO HS [facility] Stop: 10/26/24 21:59 Last Admin: 09/28/24 20:36 Dose: 1 mg Magnesium Hydroxide (Magnesium Hydroxide Susp 30 Ml Udc) 30 ml PO DAILY PRN PRN Reason: Constipation Stop: 10/26/24 01:09 Sertraline HCl (Sertraline Hcl 100 Mg Tablet) 100 mg PO QAM [facility] Stop: 10/27/24 08:59 Last Admin: 09/29/24 09:07 Dose: 100 mg Sodium Chloride (Sodium Chloride 0.65% Na Soln 45 Ml ([place])) 1 - 2 sprays NA PRN PRN PRN Reason: Nasal Dryness/Congestion Stop: 10/26/24 01:09 Vitamin D (Cholecalciferol 25 Mcg (1000 Units) Tab) 25 mcg PO QAM [facility] Stop: 10/27/24 11:44 Last Admin: 09/29/24 09:07 Dose: 25 mcg Mental Health & Subst Abuse Tx Psychiatrist Name of Psychiatrist: Autumn Monson @ [facility] Psychiatrist's Date Of Appointment With Psychiatric Provider: 10/09/24 Time of Appointment with Psychiatrist: 8:30AM Psychiatric Appointment Comment: *Requested therapy services; Autumn is aware of hospitalization & request Therapist Name of Therapist: On therapy waitlist at [facility] Therapist's Phone Number: . Date of Therapist Appointment: . Time of Therapist Appointment: . Therapy Appointment Comment: Declines referral to [facility] Envelope Cutter Name of Envelope Cutter: RAJWINDER Leonardo Envelope Cutter @ [employer] Phone Number for Envelope Cutter: [phone] Date of Appointment with Envelope Cutter: 10/01/24 Time of Appointment with Envelope Cutter: 10:00AM Case Management Appointment Comment: Jeannine will call you around 10am on 10/01/24 Post Discharge Appointments Primary Care Physician Name Of Family Doctor/PCP: Dr. Dominguez Primary [facility] Date of Future Appointment with PCP: 10/01/24 Time of Appointment with PCP: 1:20pm
[2024-09-29] MEDS ORDERED: QUEtiapine FUMARATE 200 MG TAB PO PRN (12:13)
[2024-09-29] MEDS: busPIRone 5 MG TAB PO SCH (21:40)
[2024-09-29] MEDS: MIRTAZAPINE TAB 15 MG TAB PO SCH (21:40)
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
[2024-10-01] MEDS: hydrOXYzine HCl 25 MG TAB PO PRN (04:29)
--- NOTE | 2024-10-01 08:46 | Psychiatric Progress Note ---
Date of Service October 01, 2024 Impression / Recommendations Impression Lakisha Shepard is a 73 y/o white female, domiciled by self, retired who presents with suicide gesture with recent ingestion of 5 tabs of Buspar in the context of escalating anxiety and depression. Outpatient psychiatrist and family recommended inpatient for evaluation and safety. She was admitted on 09/26/24 00:22 on a 201 voluntary commitment for suicidal ideation. Presentation consistent with major depressive disorder, recurrent, severe and generalized anxiety disorder. Patient has not had a complete trial of an SSRI antidepressant and was recently started on sertraline 2 weeks ago. A: Still reports some anxiety but much better able to tolerate discussions about automatic thoughts and ways to challenge and change these using CBT. Reviewed possibility of cognitive impairment component but also possibility of pseudo dementia/concentration difficulties due to anxiety/depression. Continuing to tolerate her medications, she's interested in increasing abilify to see if this further helps with anxiety while waiting for further benefit from sertraline. Reviewed importance of outpatient therapy consideration as this will be just as important as medication in helping to change chronic negative self-jaqueline k/thoughts. Overall, I spent a total of 50 minutes on this case including meeting with the patient, reviewing the chart, nursing report, multidisciplinary team meeting, orders, and documentation. (1) Major depressive disorder, recurrent episode, severe: (2) Generalized anxiety disorder: Plan 10/01/2024: -Increase abilify to 7.5mg daily 09/30/2024: -Continue current medications and tx plan. 09/29/2024: -Start mirtazapine 15mg HS -Have Seroquel 200mg HS prn as back up if other sleep aids and prns are ineffective, reviewed goal of avoiding use if possible given increased risk of side effects with dual anti-dopaminergic medications and concern this may be contributing to elevated HbA1c. -Reduce Buspar to 10mg BID 09/28/2024: -Discontinue Seroquel -Start Abilify 5mg daily 09/27/2024: Start vitamin D 2000 units daily. Continue other medications and treatment plan. 09/26/2024: The patient was admitted to the [facility] ([facility] mental health unit) on q15 min checks (behavioral with suicide precautions) for safety. The patient will participate in group, recreational, and milieu therapies and will be offered additional individual and family sessions as clinically appropriate. -Increase Sertraline to 100mg daily -Lorazepam 1mg HS -Continue home Quetiapine 200mg HS -Continue Buspirone 20mg BID -Questionnaires: MONICA-7 -Labs: Vit D, Vit B12, fasting lipids, HgbA1C Inventory Assets Strengths: independent, resilient Needs: improved insight, social supports Suicide Risk Level Suicide Risk Level: Moderate (q15 min suicide checks) (intermittent SI and depression prior to admission but now denying SI, still with depression but improving, some anxiety but feels safe in the hospital and able to ask for support) Risk Factors Assessment Male: No : Yes Do You Have Access To A Gun?: No Health Problems: No Mental Health Diagnoses: Yes Substance Use Disorders: No Previous Attempt: Yes Family History of Suicide: No Previous Psychiatric Hospitalization: No Hopelessness: Yes Protective Factors Assessment [employer] Beliefs: Yes : No Responsible for Young Children: No Employed: No Stable Relationships: No Supportive Family: Yes Good Rapport with Provider: No Absence of Any Risk Factors Above: No Interval History Identifying Information Lakisha Shepard is a 73 y/o white female, domiciled by self, retired who presents with suicide gesture with recent ingestion of 5 tabs of Buspar in the context of escalating anxiety and depression. Outpatient psychiatrist and family recommended inpatient for evaluation and safety. She was admitted on 09/26/24 00:22 on a 201 voluntary commitment for suicidal ideation. Chief Complaint "I can't remember what to say". Review of Systems Sleep Information Total Hours of Sleep: 7 Sleep Comments: HS Medications Meal Information Percent Meal Consumed - Breakfast: 100 Percent Meal Consumed - Lunch: 100 Percent Meal Consumed - Dinner: 100 Subjective Subjective Patient was seen & assessed and interval progress reviewed with treatment team nursing and social work. Reading a book last evening which she reports she hasn't been able to do in awhile. Slept for 7 hours. Today she reports her mood is "sort of anxious right now". Expands on anxious thoughts of "I feel inadequate" and discusses that she has chronic thoughts of not being good enough, not being intelligent and her recent increased difficulty recalling names and with word finding difficulty at times have made this worse. She thinks abilify may be helping but wishes her symptoms would go away completely. Reviewed CBT strategies she can use to challenge these automatic negative thoughts which she is willing to try. Reviewed that her family is able to drive her to IOP in [place]. She feels she doesn't want to do this. Discussed pattern of some help seeking/help rejecting observed during her admission. She agrees with this noting "why I am like this". We processed this and she notes some willingness to consider outpatient therapy or perhaps IOP. Discussed possibility of mild cognitive impairment as possibility if word finding/name recall issues persist even after depression and anxiety symptoms improve. Physical Exam Psychiatric Orientation: alert and oriented x 3 Apperance: appropriately dressed Eye Contact: good eye contact Motor Behavior: no abnormal motor movements Speech: normal rate/rhythm/volume of speech Affect: + anxious affect Mood: + depressed mood and + anxious mood Thought Process: goal directed thought process Thought Content: reality based without delusions Suicidal Thoughts: denies suicidal thoughts and denies suicidal plan Homicidal Thoughts: denies homicidal thoughts Hallucinations: no auditory hallucinations and no visual hallucinations Cognition: recent memory grossly intact, remote memory grossly intact, attention grossly intact and language grossly intact Insight: + limited insight Judgment: + limited judgement Vital Signs (Past 24 Hours) Last Vital Signs Temp 36.9 C 10/01/24 06:43 Pulse 65 10/01/24 06:44 Resp 16 10/01/24 06:43 BP 133/81 10/01/24 06:44 Pulse Ox 93 09/30/24 06:49 O2 Del Method Room Air 09/30/24 06:49 Results & Data ([facility]) Current Inpatient Medications Current Inpatient Medications: Current Inpatient Medications Acetaminophen (Acetaminophen 325 Mg Tab) 650 mg PO Q4H PRN PRN Reason: Headache or Minor Fever Stop: 10/26/24 01:09 Al Hydrox/Mg Hydrox/Simethicone (Aluminum/Magnesium Susp 30 Ml Udc) 30 ml PO Q4H PRN PRN Reason: GI Upset Stop: 10/26/24 01:09 Aripiprazole (Aripiprazole 5 Mg Tab) 5 mg PO QAM ZULMA Stop: 10/28/24 12:44 Last Admin: 09/30/24 09:03 Dose: 5 mg Bismuth Subsalicylate (Bismuth Subsalicylate 262 Mg Chew) 2 tab PO Q30M PRN PRN Reason: Loose Stool/Diarrhea Stop: 10/26/24 01:09 Buspirone HCl (Buspirone 5 Mg Tab) 10 mg PO BID ZULMA Stop: 10/29/24 20:59 Last Admin: 09/30/24 21:06 Dose: 10 mg Docusate Sodium (Docusate Sodium 100 Mg Cap) 100 mg PO BID ZULMA Stop: 10/26/24 08:59 Last Admin: 09/30/24 21:07 Dose: 100 mg Hydroxyzine HCl (Hydroxyzine Hcl 25 Mg Tab) 50 mg PO HSZ PRN PRN Reason: Insomnia Stop: 10/26/24 01:09 Last Admin: 09/29/24 02:36 Dose: 50 mg Hydroxyzine HCl (Hydroxyzine Hcl 25 Mg Tab) 25 mg PO Q4H PRN PRN Reason: Anxiety Stop: 10/26/24 01:09 Last Admin: 10/01/24 04:29 Dose: 25 mg Levothyroxine Sodium (Levothyroxine Sodium 88 Mcg Tablet) 88 mcg PO DAILYBB ZULMA Stop: 10/26/24 07:59 Last Admin: 09/30/24 07:57 Dose: 88 mcg Lorazepam (Lorazepam 0.5 Mg Tab) 0.5 mg PO Q8H PRN PRN Reason: Anxiety Stop: 10/26/24 01:14 Last Admin: 09/29/24 01:46 Dose: 0.5 mg Lorazepam (Lorazepam 1 Mg Tab) 1 mg PO HS ZULMA Stop: 10/26/24 21:59 Last Admin: 09/30/24 21:07 Dose: 1 mg Magnesium Hydroxide (Magnesium Hydroxide Susp 30 Ml Udc) 30 ml PO DAILY PRN PRN Reason: Constipation Stop: 10/26/24 01:09 Mirtazapine (Mirtazapine Tab 15 Mg Tab) 15 mg PO HS ZULMA Stop: 10/29/24 21:59 Last Admin: 09/30/24 21:07 Dose: 15 mg Quetiapine Fumarate (Quetiapine Fumarate 200 Mg Tab) 200 mg PO HS PRN PRN Reason: insomnia Stop: 10/29/24 21:59 Sertraline HCl (Sertraline Hcl 100 Mg Tablet) 100 mg PO QAM ZULMA Stop: 10/27/24 08:59 Last Admin: 09/30/24 09:05 Dose: 100 mg Sodium Chloride (Sodium Chloride 0.65% Na Soln 45 Ml ([place])) 1 - 2 sprays NA PRN PRN PRN Reason: Nasal Dryness/Congestion Stop: 10/26/24 01:09 Vitamin D (Cholecalciferol 25 Mcg (1000 Units) Tab) 25 mcg PO QAM ZULMA Stop: 10/27/24 11:44 Last Admin: 09/30/24 09:04 Dose: 25 mcg Mental Health & Subst Abuse Tx Psychiatrist Name of Psychiatrist: Autumn Monson @ [facility] Psychiatrist's Date Of Appointment With Psychiatric Provider: 10/09/24 Time of Appointment with Psychiatrist: 8:30AM Psychiatric Appointment Comment: *Requested therapy services; Autumn is aware of hospitalization & request Therapist Name of Therapist: On therapy waitlist at [facility] Therapist's Phone Number: . Date of Therapist Appointment: . Time of Therapist Appointment: . Therapy Appointment Comment: Declines referral to [facility] Ip Attorney Name of Ip Attorney: RAJWINDER Leonardo Ip Attorney @ [employer] Phone Number for Ip Attorney: [phone] Date of Appointment with Ip Attorney: 10/01/24 Time of Appointment with Ip Attorney: 10:00AM Case Management Appointment Comment: Jeannine will call you around 10am on 10/01/24 Post Discharge Appointments Primary Care Physician Name Of Family Doctor/PCP: Dr. Dominguez [facility] Date of Future Appointment with PCP: 10/04/24 - Monday Time of Appointment with PCP: 1:20pm
[2024-10-02] MEDS: ARIPiprazole 5 MG TAB PO SCH (09:09)
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
== END 2024-10-02 15:11 | disposition home or self-care (01) | DRG 885 ==
LOC: ED 18:11 → SUATTDRO 09-26 00:22 → 3S 09-26 00:22